=== PATIENT | female | born 1940 | race Caucasian/White ===

== ENCOUNTER 2017-04-23 14:04 | Emergency (ER) | payer MEDICARE, OTHER ==
[~2017-04-23] VITALS: Ht 162.6 cm; Wt 74.8 kg
[2017-04-23 14:34] LABS: Basophils # (auto) 0 uL; Basophils % (auto) 0.4 % (0.0-2.0); Eosinophils # (auto) 0.2 uL; Hematocrit 46.1 % (36.0-46.0); Hemoglobin 15.1 g/dL (12.2-16.2); Lymphocytes # (auto) 3.2 uL; Mean Corpuscular Hemoglobin 29.8 pg (28.0-32.0); Mean Corpuscular Hgb Conc. 32.7 g/dL (32.0-36.0); Mean Platelet Volume 9.4 fL (6.9-10.8); Monocytes # (auto) 0.7 uL; Monocytes % (auto) 6.5 % (0.0-12.0); Neutrophils # (auto) 6.9 uL; Neutrophils % (auto) 62.1 % (37.0-80.0); Nucleated Red Blood Cells % 0.1 %; Platelet Count (auto) 274 10^3/uL (140-450); Red Cell Distribution Width 13.6 % (11.8-14.3); White Blood Cell 11.2 10^3/uL (4.4-10.8)
[2017-04-23 14:57] LABS: Albumin 4.2 g/dL (3.4-5.0); Alkaline Phosphatase 76 U/L (45-117); Anion Gap 10 (5-15); Aspartate Aminotransferase 15 U/L (15-37); BUN/Creatinine Ratio 12.1; Bilirubin, Total 0.5 mg/dL (0.2-1.0); Blood Urea Nitrogen 13 mg/dL (7-18); Calcium 9.2 mg/dL (8.5-10.1); Carbon Dioxide 28 mmol/L (21-32); Chloride 101 mmol/L (98-107); GFR African American 64 mL/min; GFR Non-African American 53 mL/min; Glucose 96 mg/dL (74-106); Potassium 3.7 mmol/L (3.5-5.1); Sodium 139 mmol/L (136-145)
[2017-04-23 15:14] VITALS: BP 109/81
[2017-04-23 15:49] LABS: Urine Bilirubin Negative (Negative); Urine Blood Negative /uL (Negative); Urine Color Yellow (Yellow); Urine Glucose Normal (Normal); Urine Hyaline Cast FEW /lpf (0 - 2); Urine Ketone Negative (Negative); Urine Mucus FEW (None Seen); Urine Nitrite Negative (Negative); Urine RBC 1 /hpf (0 - 4); Urine Squamous Epithelial Cell FEW /hpf (<5)
== END 2017-04-23 16:04 | disposition home or self-care (01) ==
LOC: ER 14:04
DX: S09.90XA Unspecified injury of head, initial encounter (principal); N39.0 Urinary tract infection, site not specified; E11.9 Type 2 diabetes mellitus without complications; I10 Essential (primary) hypertension; Z90.49 Acquired absence of other specified parts of digestive tract; W20.8XXA Other cause of strike by thrown, projected or falling object, initial encounter; Y93.89 Activity, other specified; Y99.8 Other external cause status; Y92.89 Other specified places as the place of occurrence of the external cause
CPT/HCPCS: 36415; 70450; 80053; 81001; 84484; 85025; 93005

== ENCOUNTER 2019-05-27 21:51 | Inpatient (IN) | payer MEDICARE, BC ==
[~2019-05-27] VITALS: Ht 162.6 cm; Wt 75.3 kg
[~2019-05-27 21:51] MED LIST: ATEN50TA PO; INSU1.2I SC; METF-370 PO; PANT1INJ3 IV; SERT50TA PO; ZOLP10TA PO
[2019-05-27 23:39] LABS: Basophils # (auto) 0.1 uL; Basophils % (auto) 0.4 % (0.0-2.0); Eosinophils # (auto) 0 uL; Eosinophils % (auto) 0.1 % (0.0-7.0); Hematocrit 47.7 % (36.0-46.0); Hemoglobin 15.6 g/dL (12.2-16.2); Lymphocytes # (auto) 3.2 uL; Lymphocytes % (auto) 15.4 % (10.0-50.0); Mean Corpuscular Hemoglobin 29.8 pg (28.0-32.0); Mean Corpuscular Hgb Conc. 32.7 g/dL (32.0-36.0); Mean Corpuscular Volume 91.1 fL (80.0-100.0); Monocytes # (auto) 1.3 uL; Monocytes % (auto) 6.4 % (0.0-12.0); Neutrophils # (auto) 16.2 uL; Neutrophils % (auto) 77.7 % (37.0-80.0); Platelet Count (auto) 333 10^3/uL (140-450); Red Blood Cells 5.24 10^6/uL (4.0-5.20); White Blood Cell 20.9 10^3/uL (4.4-10.8)
[2019-05-27 23:48] LABS: Albumin 3.5 g/dL (3.4-5.0); Amylase 104 U/L (25-115); Anion Gap 14 (5-15); Blood Urea Nitrogen 36 mg/dL (7-18); Calcium 8.8 mg/dL (8.5-10.1); Carbon Dioxide 20 mmol/L (21-32); Chloride 100 mmol/L (98-107); Glucose 194 mg/dL (74-106); Lipase 154 U/L (73-393); Magnesium 1.7 mg/dL (1.6-2.6); Potassium 3.9 mmol/L (3.5-5.1); Sodium 134 mmol/L (136-145)
[2019-05-27 23:50] LABS: Alanine Aminotransferase 18 U/L (13-56); Aspartate Aminotransferase 13 U/L (15-37); BUN/Creatinine Ratio 23.1; GFR African American 41 mL/min; GFR Non-African American 34 mL/min
[2019-05-27 23:55] LABS: Alkaline Phosphatase 59 U/L (45-117); Bilirubin, Total 0.8 mg/dL (0.2-1.0); Total Protein 7.3 g/dL (6.4-8.2)
[2019-05-28] MEDS ORDERED: VANCOMYCIN PER PHARMACY 1,000 MG IV SCH (01:15)
[2019-05-28] MEDS ORDERED: ACETAMINOPHEN 325 MG TAB PO PRN (01:15)
[2019-05-28] MEDS ORDERED: SODIUM CHLORIDE 0.9% 1,000 ML IV ONE (02:00)
[2019-05-28 02:09] LABS: INR 1.05 (0.9-1.15); Partial Thromboplastin Time 24.7 sec (23.64-32.05)
[2019-05-28] MEDS: PIPERACILLIN-TAZOB 2.25GM 50 ML IV SCH ×5 (02:46→23:35)
[2019-05-28] MEDS ORDERED: ONDANSETRON HCL 4 MG/2 ML VIAL IV ONE ×2 (03:00→09:45)
[2019-05-28] MEDS ORDERED: MORPHINE SULFATE 4 MG/ML SYR/VIAL IV ONE (03:00)
[2019-05-28] MEDS ORDERED: VANCOMYCIN 1GM/250ML 250 ML IV ONE (03:00)
[2019-05-28 03:11] LABS: Urine Bacteria FEW /hpf (None Seen); Urine Blood Negative /uL (Negative); Urine Hyaline Cast MOD /lpf (0 - 2); Urine Mucus FEW (None Seen); Urine Specific Gravity 1.028 (1.001-1.035); Urine WBC 14 /hpf (0 - 5)
[2019-05-28 09:51] LABS: Potassium 3.8 mmol/L (3.5-5.1)
[2019-05-28] MEDS ORDERED: DEXTROSE (50%) 50ML SYRG IV PRN (15:15)
[2019-05-28] MEDS ORDERED: NITROGLYCERIN 0.4 MG SL TAB SL PRN (15:15)
[2019-05-28] MEDS ORDERED: MORPHINE SULFATE 4 MG/ML SYR/VIAL IV PRN ×2 (15:15)
[2019-05-28] MEDS ORDERED: MORPHINE SULF INJ 2 MG/ML SYRINGE 1ML IV PRN (15:15)
[2019-05-28] MEDS ORDERED: LORazepam 2MG/ML-1ML VIAL IV PRN (15:15)
[2019-05-28] MEDS: SODIUM CHLORIDE 0.9% 1,000 ML IV SCH ×2 (15:40→18:38)
[2019-05-28] MEDS: CLINDAMYCIN 600MG IV 50 ML IV SCH ×2 (16:06→21:32)
[2019-05-28 16:36] VITALS: BP 141/73
--- NOTE | 2019-05-28 17:36 | NUR ---
Telemetry admit from ER ZEBJADE admitted to Telemetry unit after SBAR received. Patient oriented to SHAKIRA CISNEROS RN primary RN, unit, room, bed, and unit policies regarding patient care and visiting hours. Patient now on continuous telemetry monitoring, tele box # 51 and telemetry reading on arrival to unit is sinus rhythm 91. Patient has NG Tube to left nares, set to low intermittent suction. Patient has 20g IV to right AC. Patient denies pain at this time. Patient is on room air, oxygen saturation 95%. Patient denies shortness of breath at this time. Reviewed plan of care with patient, patient verbalized understanding. Bed in low and locked position, call light within reach.. Will continue to monitor Q1 hour and PRN. Family at bedside.
[2019-05-28] MEDS: InsuLIN REG 1unit/0.01ml Soln (100units/ml) SC SCH ×2 (18:00→23:57)
[2019-05-28] MEDS ORDERED: ENOXAPARIN SOD 80 MG/0.8ML SYRINGE SC ONE (18:15)
[2019-05-28] MEDS: ENOXAPARIN SOD 80 MG/0.8ML SYRINGE SC SCH (18:30)
[2019-05-28] MEDS: ACCU-CHEK COMFORT CURVE STRIP VI SCH ×2 (18:37→23:58)
--- NOTE | 2019-05-28 18:40 | NUR ---
Additional family contact information Alejandro daughter
--- NOTE | 2019-05-28 19:32 | NUR ---
Closing Note Report given to overnight cashier RN. No signs or symptoms of distress noted at this time. Family at bedside.
--- NOTE | 2019-05-28 19:40 | NUR ---
assumed care, pt. awake, ngt to lis in place, relative at bedside, no c/o pain, no sob.
[2019-05-28 22:00] VITALS: BP 126/73
[2019-05-29] MEDS ORDERED: VANCOMYCIN 750mg/250ml 250 ML IV SCH (04:00)
[2019-05-29] MEDS: ACCU-CHEK COMFORT CURVE STRIP VI SCH ×4 (04:41→18:14)
[2019-05-29] MEDS: CLINDAMYCIN 600MG IV 50 ML IV SCH ×2 (05:00→14:47)
[2019-05-29] MEDS: InsuLIN REG 1unit/0.01ml Soln (100units/ml) SC SCH ×3 (05:29→18:00)
[2019-05-29] MEDS: ENOXAPARIN SOD 80 MG/0.8ML SYRINGE SC SCH ×2 (05:38→18:24)
[2019-05-29] MEDS: SODIUM CHLORIDE 0.9% 1,000 ML IV SCH (05:39)
[2019-05-29 05:48] VITALS: BP 111/69
[2019-05-29] MEDS: PIPERACILLIN-TAZOB 2.25GM 50 ML IV SCH ×3 (06:00→18:24)
[2019-05-29 07:14] LABS: Basophils # (auto) 0 uL; Basophils % (auto) 0.3 % (0.0-2.0); Eosinophils # (auto) 0.1 uL; Eosinophils % (auto) 0.6 % (0.0-7.0); Hematocrit 39.6 % (36.0-46.0); Hemoglobin 13.3 g/dL (12.2-16.2); Lymphocytes # (auto) 2.3 uL; Lymphocytes % (auto) 21.3 % (10.0-50.0); Mean Corpuscular Hemoglobin 30.2 pg (28.0-32.0); Mean Corpuscular Hgb Conc. 33.6 g/dL (32.0-36.0); Monocytes # (auto) 1.1 uL; Monocytes % (auto) 10.5 % (0.0-12.0); Neutrophils # (auto) 7.2 uL; Neutrophils % (auto) 67.3 % (37.0-80.0); Platelet Count (auto) 191 10^3/uL (140-450); Red Cell Distribution Width 14.1 % (11.8-14.3); White Blood Cell 10.8 10^3/uL (4.4-10.8)
--- NOTE | 2019-05-29 07:30 | NUR ---
Opening Note Received report from shift commander RN. Patient is awake, alert and oriented x4. No signs or symptoms of distress noted at this time. Patient has NG Tube to left nares, on low intermittent suctions. Patient is on room air, respirations even and unlabored. Patient denies pain at this time. Reviewed plan of care with patient, patient verbalized understanding. Patient is NPO. Bed in low and locked position, call light within reach. Will continue to monitor Q1 hour and PRN.
[2019-05-29 07:41] LABS: Albumin 2.6 g/dL (3.4-5.0); BUN/Creatinine Ratio 27.1; Calcium 8.2 mg/dL (8.5-10.1)
[2019-05-29 07:44] LABS: Bilirubin, Total 0.6 mg/dL (0.2-1.0); Total Protein 5.9 g/dL (6.4-8.2)
[2019-05-29 07:55] LABS: Potassium 2.5 mmol/L (3.5-5.1)
[2019-05-29] MEDS ORDERED: GASTROGRAFIN 120 ML SOL ONE (07:58)
--- NOTE | 2019-05-29 08:10 | NUR ---
Patient taken down for small bowel series.
--- NOTE | 2019-05-29 08:25 | NUR ---
Critical potassium Paged Hospitalist regarding patients critical potassium of 2.5. New orders received for Potassium IV 40meq with lidocaine. Will implement new orders. Will continue to monitor Q1 hour and PRN.
[2019-05-29] MEDS ORDERED: POTASSIUM CHLORIDE 40 MEQ, LIDOCAINE 1% (LOCAL ANESTH.) 4 ML in SODIUM CHL 0.9% 100 ML IV ONE ×2 (08:45→15:15)
[2019-05-29 09:00] VITALS: BP 119/64
--- NOTE | 2019-05-29 09:28 | NUR ---
Patient back to room Patient back from small bowel series. Instructed by automation engineering technician not to place NG Tube on suction until xray are completed. Bed in low and locked position, call light within reach. Will continue to monitor Q1 hour and PRN.
--- NOTE | 2019-05-29 09:50 | NUR ---
Nausea Patient complains of nausea, requesting medications. Will administer medications per MD orders. Will continue to monitor Q1 hour and PRN.
[2019-05-29] MEDS: PROMETHAZINE HCL 25 MG/ML 1ML IV PRN (09:54)
[2019-05-29] MEDS ORDERED: ENOXAPARIN SOD 40 MG/0.4 ML SYRINGE SC SCH (10:00)
--- NOTE | 2019-05-29 10:30 | NUR ---
surface mount technology operator at bedside. Instructed to place patient back to low intermittent suction. Bed in low and locked position, call light within reach. Will continue to monitor Q1 hour and PRN.
[2019-05-29] MEDS: PANTOPRAZOLE 40 MG/10 ML VIAL INJ IV SCH (11:20)
[2019-05-29 13:00] VITALS: BP 175/44
--- NOTE | 2019-05-29 14:59 | NUR ---
Dr. Yu at bedside Updating patient and family on plan of care. Will continue to monitor Q1 hour and PRN.
[2019-05-29] MEDS ORDERED: D5W/ SOD CHL 0.9%/KCL 20MEQ 1,000 ML IV ONE (15:15)
[2019-05-29] MEDS ORDERED: metroNIDAZOLE 500MG/100ML 100 ML IV ONE (15:30)
[2019-05-29 17:00] VITALS: BP 135/71
--- NOTE | 2019-05-29 18:31 | NUR ---
NG Tube Output 600MLS Light brown fluid emptied from collection chamber. Patient NG Tube on low intermittent suction.
--- NOTE | 2019-05-29 19:26 | NUR ---
Closing Note Report given to power and recovery shift engineer RN. NG Tube to left nares, on low intermittent suction. No signs or symptoms of distress noted at this time.
--- NOTE | 2019-05-29 19:30 | NUR ---
Opening Shift Note Assumed care of patient. Patient is awake and alert. No S/S of distress/SOB or pain. Bedside commode in close proximity to bed. NG tube to the left nare intact, patent with no s/s of pain. Instructed on POC and to call for assist PRN, will continue to monitor for changes. Bed locked in lowest position and bed rails up x2. Call light within reach.
[2019-05-29 20:36] LABS: Calcium 8.2 mg/dL (8.5-10.1); Potassium 3.1 mmol/L (3.5-5.1)
[2019-05-29 22:00] VITALS: BP 129/69
[2019-05-29] MEDS ORDERED: metroNIDAZOLE 500MG/100ML 100 ML IV SCH (22:00)
--- NOTE | 2019-05-30 | NUR ---
[facility] Hospitalist about run of V-tach Addendum: 05/30/19 at 0540 by SOREN SHANNON RN RN Patient resting comfortably with stable vital signs, denies chest pain and no s/s of pain or distress.
--- NOTE | 2019-05-30 00:30 | NUR ---
Hospitalist called back and made aware of the run of V-tach. No new orders given. Will continue to monitor for changes Q1 hour and as needed.
[2019-05-30] MEDS: ACCU-CHEK COMFORT CURVE STRIP VI SCH ×4 (00:43→17:56)
[2019-05-30] MEDS: ZOLPIDEM TARTRATE 5 MG TAB PO PRN (00:43)
[2019-05-30] MEDS: PIPERACILLIN-TAZOB 2.25GM 50 ML IV SCH ×4 (00:43→18:02)
--- NOTE | 2019-05-30 05:23 | NUR ---
site monitor tech made me aware of another run of V-tach at this time. Patient resting comfortably with stable vital signs, denies chest pain and no s/s of pain or distress.
[2019-05-30 05:41] LABS: Basophils # (auto) 0 uL; Basophils % (auto) 0.4 % (0.0-2.0); Eosinophils # (auto) 0.1 uL; Eosinophils % (auto) 1.4 % (0.0-7.0); Lymphocytes # (auto) 2.7 uL; Lymphocytes % (auto) 26.5 % (10.0-50.0); Mean Corpuscular Hemoglobin 30.4 pg (28.0-32.0); Mean Corpuscular Hgb Conc. 33.4 g/dL (32.0-36.0); Mean Corpuscular Volume 90.9 fL (80.0-100.0); Monocytes # (auto) 0.8 uL; Monocytes % (auto) 7.6 % (0.0-12.0); Neutrophils # (auto) 6.4 uL; Neutrophils % (auto) 64.1 % (37.0-80.0); Nucleated Red Blood Cells % 0.1 %; Platelet Count (auto) 166 10^3/uL (140-450); Red Blood Cells 3.96 10^6/uL (4.0-5.20); Red Cell Distribution Width 13.9 % (11.8-14.3)
[2019-05-30 05:54] VITALS: BP 135/69
[2019-05-30] MEDS: InsuLIN REG 1unit/0.01ml Soln (100units/ml) SC SCH ×4 (06:00→17:57)
[2019-05-30 06:01] LABS: Calcium 8.2 mg/dL (8.5-10.1)
[2019-05-30 06:03] LABS: BUN/Creatinine Ratio 22.1
[2019-05-30 06:09] LABS: Potassium 2.5 mmol/L (3.5-5.1)
--- NOTE | 2019-05-30 06:10 | NUR ---
Critical Lab Value Critical lab value reported at 2.5, hospitalist paged. Awaiting call back
[2019-05-30] MEDS: ENOXAPARIN SOD 80 MG/0.8ML SYRINGE SC SCH (06:45)
--- NOTE | 2019-05-30 06:55 | NUR ---
Paged hospitalist again for critical lab value
--- NOTE | 2019-05-30 07:40 | NUR ---
Opening Shift Note Assumed care of patient, sleeping in bed. No S/S of distress/SOB or pain. Instructed on POC and to call for assist PRN, bed in locked and lowest position and call light within reach. Will continue to monitor for changes Q1hr and PRN.
--- NOTE | 2019-05-30 08:17 | NUR ---
Spoke with Hospitalist Zamzam Singleton regarding patients potassium of 2.5. Orders given.
[2019-05-30] MEDS ORDERED: POTASSIUM CHLORIDE 60 MEQ, LIDOCAINE 1% (LOCAL ANESTH.) 6 ML in SODIUM CHL 0.9% 500 ML IV ONE (08:30)
[2019-05-30 09:00] VITALS: BP 126/68
[2019-05-30] MEDS: PANTOPRAZOLE 40 MG/10 ML VIAL INJ IV SCH (09:46)
[2019-05-30 13:00] VITALS: BP 142/74
[2019-05-30] MEDS ORDERED: ONDANSETRON ODT 4 MG TAB PO PRN (14:30)
--- NOTE | 2019-05-30 15:12 | NUR ---
Dr. Ramon on unit. He does not want NG tube D/C, instead clamp, and patient to have water and ice chips only. If nausea returns, senior technical support analyst to suction again.
[2019-05-30] MEDS: D5W/SOD CHL 0.9%/KCL 40MEQ 1,000 ML IV SCH (16:12)
[2019-05-30 17:00] VITALS: BP 156/81
[2019-05-30] MEDS: metFORMIN HYDROCHLORIDE 500 MG TAB PO SCH (17:58)
--- NOTE | 2019-05-30 17:58 | NUR ---
Lovenox was D/C by pharmacy. [facility] pharmacy, informed them Dr. Yu wants the patient to have the Lovenox tonight, and then D/C for the eliquis to start. Pharmacy will place new order.
[2019-05-30] MEDS: PANCREATIC ENZYMES 4200 UNIT CAP PO SCH (17:59)
[2019-05-30 18:16] LABS: BUN/Creatinine Ratio 17.9; Calcium 8.4 mg/dL (8.5-10.1); Potassium 3.3 mmol/L (3.5-5.1)
[2019-05-30] MEDS ORDERED: ENOXAPARIN SOD 80 MG/0.8ML SYRINGE SC ONE ×2 (18:45→19:45)
--- NOTE | 2019-05-30 19:15 | NUR ---
Still unable to pull Lovenox. Per Pharmacy they will bullet over so I can administer.
[2019-05-30 22:00] VITALS: BP 151/75
[2019-05-30] MEDS: busPIRone HCL 10 MG TAB PO SCH (22:38)
[2019-05-30] MEDS: ATORVASTATIN 20 MG TAB PO SCH (22:38)
[2019-05-30] MEDS: PROMETHAZINE HCL 25 MG/ML 1ML IV PRN (22:48)
[2019-05-31] MEDS: ACCU-CHEK COMFORT CURVE STRIP VI SCH ×5 (00:26→23:41)
[2019-05-31] MEDS: PIPERACILLIN-TAZOB 2.25GM 50 ML IV SCH ×5 (02:17→23:32)
[2019-05-31 05:22] LABS: Basophils # (auto) 0 uL; Basophils % (auto) 0.6 % (0.0-2.0); Eosinophils # (auto) 0.2 uL; Eosinophils % (auto) 3.2 % (0.0-7.0); Hematocrit 36.3 % (36.0-46.0); Lymphocytes # (auto) 1.9 uL; Mean Corpuscular Hemoglobin 30.1 pg (28.0-32.0); Mean Corpuscular Volume 91.4 fL (80.0-100.0); Monocytes # (auto) 0.7 uL; Monocytes % (auto) 8.6 % (0.0-12.0); Neutrophils # (auto) 4.8 uL; Neutrophils % (auto) 62.6 % (37.0-80.0); Platelet Count (auto) 161 10^3/uL (140-450); Red Blood Cells 3.97 10^6/uL (4.0-5.20); Red Cell Distribution Width 14.1 % (11.8-14.3); White Blood Cell 7.7 10^3/uL (4.4-10.8)
[2019-05-31 05:26] VITALS: BP 141/67
[2019-05-31 05:39] LABS: BUN/Creatinine Ratio 13.1; Calcium 8.2 mg/dL (8.5-10.1)
[2019-05-31] MEDS: InsuLIN REG 1unit/0.01ml Soln (100units/ml) SC SCH ×5 (06:00→23:41)
--- NOTE | 2019-05-31 07:35 | NUR ---
Opening Shift Note Assumed care of patient, awake and alert laying in bed. No S/S of distress/SOB or pain. Instructed on POC and to call for assist PRN, call light within reach and bed in locked and lowest position. Will continue to monitor for changes Q1hr and PRN.
[2019-05-31] MEDS: PANCREATIC ENZYMES 4200 UNIT CAP PO SCH ×3 (08:00→18:20)
[2019-05-31] MEDS: metFORMIN HYDROCHLORIDE 500 MG TAB PO SCH ×2 (08:00→18:00)
[2019-05-31 08:46] VITALS: BP 132/72
[2019-05-31] MEDS: D5W/SOD CHL 0.9%/KCL 40MEQ 1,000 ML IV SCH ×3 (09:30→11:20)
[2019-05-31] MEDS: APIXABAN 5 MG TAB PO SCH ×2 (09:31→22:18)
[2019-05-31] MEDS: PANTOPRAZOLE 40 MG/10 ML VIAL INJ IV SCH (09:31)
[2019-05-31] MEDS: LISINOPRIL 5 MG TAB PO SCH (09:32)
--- NOTE | 2019-05-31 09:34 | NUR ---
Spoke with joan Fox for patient to advance to clear liquids
[2019-05-31] MEDS ORDERED: POTASSIUM CHLORIDE 20 MEQ, LIDOCAINE 1% (LOCAL ANESTH.) 2 ML in SODIUM CHL 0.9% 100 ML IV ONE (12:30)
--- NOTE | 2019-05-31 12:34 | NUR ---
Dr. Yu bedside with patient discussing plan of care.
[2019-05-31] MEDS ORDERED: MORPHINE SULF INJ 2 MG/ML SYRINGE 1ML IV PRN ×2 (12:45)
[2019-05-31 13:06] VITALS: BP 148/85
--- NOTE | 2019-05-31 14:34 | NUR ---
Nutrition Assessment Notes please see attached link for complete assessment Est. Needs BW 72 [id number] kcal (23-25 kcal/kgBW), 72-79 gms pro (1.0-1.1 gms/kgBW). Will continue to monitor pertinent labs and reassess nutrient need prn Addendum: 05/31/19 at [address] Amended: Links added.
[2019-05-31 17:03] VITALS: BP 136/79
--- NOTE | 2019-05-31 19:40 | NUR ---
Opening Shift Note Assumed care of patient, awake and alert. No S/S of distress. Instructed on POC and to call for assist PRN. Bed in lowest locked position, bed rails up x2, call light within reach, fall precautions in place. Will continue to monitor for changes Q1hr and PRN. Signed: 06/01/19 at 44 by YARELY BARKLEY SN <Co-Signature Required> Co-Signed: 06/01/19 at 44 by CYRUS FUENTES OCA, RN
[2019-05-31 21:47] VITALS: BP 134/87
[2019-05-31] MEDS: ATORVASTATIN 20 MG TAB PO SCH (22:17)
[2019-05-31] MEDS: busPIRone HCL 10 MG TAB PO SCH (22:19)
[2019-05-31] MEDS: ZOLPIDEM TARTRATE 5 MG TAB PO PRN (23:31)
[2019-06-01 04:50] VITALS: BP 136/72
[2019-06-01 06:00] LABS: Basophils # (auto) 0 uL; Basophils % (auto) 0.5 % (0.0-2.0); Eosinophils # (auto) 0.3 uL; Eosinophils % (auto) 4.3 % (0.0-7.0); Hematocrit 37.2 % (36.0-46.0); Hemoglobin 12.4 g/dL (12.2-16.2); Lymphocytes # (auto) 1.9 uL; Lymphocytes % (auto) 30.2 % (10.0-50.0); Mean Corpuscular Hemoglobin 30.2 pg (28.0-32.0); Mean Corpuscular Hgb Conc. 33.3 g/dL (32.0-36.0); Mean Corpuscular Volume 90.8 fL (80.0-100.0); Monocytes # (auto) 0.6 uL; Monocytes % (auto) 9.2 % (0.0-12.0); Neutrophils # (auto) 3.4 uL; Neutrophils % (auto) 55.8 % (37.0-80.0); Nucleated Red Blood Cells % 0.1 %; Platelet Count (auto) 168 10^3/uL (140-450); Red Cell Distribution Width 13.6 % (11.8-14.3); White Blood Cell 6.2 10^3/uL (4.4-10.8)
[2019-06-01] MEDS: D5W/SOD CHL 0.9%/KCL 40MEQ 1,000 ML IV SCH ×2 (06:00→18:05)
[2019-06-01] MEDS: InsuLIN REG 1unit/0.01ml Soln (100units/ml) SC SCH ×4 (06:00→23:41)
[2019-06-01] MEDS: PIPERACILLIN-TAZOB 2.25GM 50 ML IV SCH ×4 (06:19→23:40)
[2019-06-01 06:22] LABS: Calcium 8.3 mg/dL (8.5-10.1); Potassium 3.3 mmol/L (3.5-5.1)
[2019-06-01] MEDS: ACCU-CHEK COMFORT CURVE STRIP VI SCH ×4 (06:23→23:41)
--- NOTE | 2019-06-01 07:40 | NUR ---
Opening Shift Note Assumed care of patient, pt awake and alert laying down in bed. Pt is on room air with even and unlabored respirations. No S/S of distress/SOB or pain. Bed is in lowest position, wheels are locked, side rails up x2, and call light is within reach. Instructed on POC and to call for assist PRN, will continue to monitor for changes Q1hr and PRN.
[2019-06-01] MEDS: PANCREATIC ENZYMES 4200 UNIT CAP PO SCH ×3 (08:16→18:08)
[2019-06-01] MEDS: metFORMIN HYDROCHLORIDE 500 MG TAB PO SCH ×2 (08:16→18:07)
[2019-06-01 09:00] VITALS: BP 147/80
[2019-06-01] MEDS: APIXABAN 5 MG TAB PO SCH ×2 (09:32→21:57)
[2019-06-01] MEDS: LISINOPRIL 5 MG TAB PO SCH (09:32)
[2019-06-01] MEDS: PANTOPRAZOLE 40 MG/10 ML VIAL INJ IV SCH (09:32)
[2019-06-01] MEDS ORDERED: POTASSIUM EFFERVESENT TAB 25 MEQ PO ONE (11:45)
--- NOTE | 2019-06-01 11:49 | NUR ---
md stubbs rounded on patient made aware of peripheral iv infiltration and pt not wanting to be poked again due to bad veins, md ordered po potassium rather than iv fluids, will attempt new iv insertion later in the day, md also advanced diet to puree diet new orders noted and carried out
--- NOTE | 2019-06-01 12:25 | NUR ---
left arm 22g inserted pt tolerated well, left arm previous peripheral iv removed dressing applied
[2019-06-01 13:00] VITALS: BP 158/87
--- NOTE | 2019-06-01 16:59 | NUR ---
assessment Patient is a 79 year old female who is alert and oriented. Patients cognitive abilities are intact. Prior to admission patient lived home with her Sanjay and functioned independently. Patient informed me she is able to care for her own ADLs. Per patient she will return home to her prior living arrangements post discharge and Sanjay will transport her home. Patients PCP is Dr Kaur. Patient feels safe returning home post discharge. Patient was on service with [facility] last year. Patient may benefit from home health post discharge. I informed patient she has a right to speak to a social work faculty member regarding all care. I informed patient she has a right to participate in any and all discharge planning. Patient is aware of visiting hours on the hospital floor. I informed patient she has a right to privacy. Patient has a POA and advanced directive. Patient verbalized understanding and agreed to discharge plan. Addendum: 06/01/19 at 1701 by Natalia ALICEA Amended: Links added.
--- NOTE | 2019-06-01 19:50 | NUR ---
Opening Shift Note Assumed care of patient, awake and alert. No S/S of distress/SOB. Instructed on POC and to call for assist PRN. Bed in lowest locked position, bed rails up X2, call light within reach, fall precautions in place. Will continue to monitor for changes Q1hr and PRN. Signed: 06/01/19 at 2132 by YARELY BARKLEY SN <Co-Signature Required> Co-Signed: 06/01/19 at 2132 by CYRUS FUENTES OCA, RN
[2019-06-01] MEDS: busPIRone HCL 10 MG TAB PO SCH (21:56)
[2019-06-01] MEDS: ATORVASTATIN 20 MG TAB PO SCH (21:57)
[2019-06-01 22:00] VITALS: BP 156/86
[2019-06-01] MEDS: ZOLPIDEM TARTRATE 5 MG TAB PO PRN (23:40)
[2019-06-02] MEDS: D5W/SOD CHL 0.9%/KCL 40MEQ 1,000 ML IV SCH ×2 (02:00→10:06)
[2019-06-02 05:00] VITALS: BP 132/81
[2019-06-02] MEDS: PIPERACILLIN-TAZOB 2.25GM 50 ML IV SCH ×2 (05:39→11:35)
[2019-06-02] MEDS: InsuLIN REG 1unit/0.01ml Soln (100units/ml) SC SCH ×2 (05:42→11:38)
[2019-06-02] MEDS: ACCU-CHEK COMFORT CURVE STRIP VI SCH ×2 (05:42→11:38)
[2019-06-02 05:53] LABS: Basophils # (auto) 0 uL; Basophils % (auto) 0.5 % (0.0-2.0); Eosinophils # (auto) 0.4 uL; Eosinophils % (auto) 4.1 % (0.0-7.0); Hematocrit 38.2 % (36.0-46.0); Hemoglobin 12.5 g/dL (12.2-16.2); Lymphocytes # (auto) 3.2 uL; Lymphocytes % (auto) 34.4 % (10.0-50.0); Mean Corpuscular Hemoglobin 29.5 pg (28.0-32.0); Mean Corpuscular Hgb Conc. 32.8 g/dL (32.0-36.0); Mean Corpuscular Volume 90.2 fL (80.0-100.0); Monocytes # (auto) 0.6 uL; Monocytes % (auto) 6.6 % (0.0-12.0); Neutrophils # (auto) 5.1 uL; Neutrophils % (auto) 54.4 % (37.0-80.0); Platelet Count (auto) 196 10^3/uL (140-450); Red Blood Cells 4.24 10^6/uL (4.0-5.20); Red Cell Distribution Width 13.6 % (11.8-14.3); White Blood Cell 9.4 10^3/uL (4.4-10.8)
[2019-06-02 06:09] LABS: BUN/Creatinine Ratio 5.8; Calcium 8.4 mg/dL (8.5-10.1); Potassium 3.9 mmol/L (3.5-5.1)
--- NOTE | 2019-06-02 07:40 | NUR ---
PT RESTING IN BED, NO DISTRESS NOTED. PT REPORTS NO PAIN AT THIS TIME. PT BS IS 163, WILL GIVE METFORMIN. PT NOTIFIED STOOL SAMPLE IS NEEDED. PT AWARE AND REPORTS SHE HAS NOT EATEN MUCH DUE TO PREVIOUSLY HAVING NG TUBE. PT REPORTS HER LBM WAS, "THURSDAY." PT REPORTS SHE WILL PRESS CALL LIGHT WHEN STOOL SAMPLE AVAILABLE, WILL CONTINUE TO MONITOR.
[2019-06-02] MEDS: metFORMIN HYDROCHLORIDE 500 MG TAB PO SCH (08:33)
[2019-06-02] MEDS: PANCREATIC ENZYMES 4200 UNIT CAP PO SCH ×2 (08:34→11:35)
[2019-06-02 09:00] VITALS: BP 149/86
[2019-06-02] MEDS: APIXABAN 5 MG TAB PO SCH (10:05)
[2019-06-02] MEDS: LISINOPRIL 5 MG TAB PO SCH (10:05)
[2019-06-02] MEDS: PANTOPRAZOLE 40 MG/10 ML VIAL INJ IV SCH (10:06)
--- NOTE | 2019-06-02 10:52 | NUR ---
DR DE LA TORRE SAW PATIENT. NOTIFIED MD PT HAS NOT HAD A BM AND STOOL SAMPLE NEEDED, BUT HAS BEEN ON LIQUID DIET. MD ASKED PT IF PT IS PASSING GAS. PT REPORTS YES. NO NEW ORDERS. MD REPORTS PT MAY POSSIBLY DC TODAY.
[2019-06-02] MEDS ORDERED: PANC3000 PO (13:05)
[2019-06-02] MEDS ORDERED: ATOR20TA50 PO (13:05)
[2019-06-02] MEDS ORDERED: BUSP10TA31 PO (13:05)
[2019-06-02] MEDS ORDERED: METF-370 PO (13:05)
[2019-06-02] MEDS ORDERED: LISI-275 PO (13:05)
[2019-06-02] MEDS ORDERED: PANT40TA2 PO (13:05)
[2019-06-02] MEDS ORDERED: INSU1.2I SC (13:05)
[2019-06-02] MEDS ORDERED: APIX5TAB PO (13:05)
[2019-06-02] MEDS ORDERED: LACT10SO70 PO (13:05)
[2019-06-02] MEDS ORDERED: DOCU-94 PO (13:05)
[2019-06-02] MEDS ORDERED: ATE50T PO (13:05)
[2019-06-02 14:57] VITALS: BP 133/87
--- NOTE | 2019-06-02 15:59 | NUR ---
Discharge instructions given as ordered. Encourage to follow up with PMD as instructed. All questions and concerns addressed. Patient verbalized understanding. Medication reconciliation form completed and copy given to patient. IV removed with catheter intact, pressure dressing applied. Telemetry unit returned to ICU. Patient taken to vehicle via wheelchair with all personal belongings, accompanied by staff and spouse. No distress noted at time of departure.
[2019-06-06] MEDS ORDERED: APIXABAN 5 MG TAB PO SCH (10:00)
== END 2019-06-02 15:55 | disposition home or self-care (01) | DRG 872 ==
LOC: ER 21:51 → TELE 21:52 → TELE-WESTW 05-28 17:30
PROVIDERS: ADMIT Internal Medicine; ATTEND Hospitalist
DX: A41.9 Sepsis, unspecified organism (principal); K56.609 Unspecified intestinal obstruction, unspecified as to partial versus complete obstruction; N39.0 Urinary tract infection, site not specified; I82.402 Acute embolism and thrombosis of unspecified deep veins of left lower extremity; K86.1 Other chronic pancreatitis; N18.9 Chronic kidney disease, unspecified; E11.22 Type 2 diabetes mellitus with diabetic chronic kidney disease; I12.9 Hypertensive chronic kidney disease with stage 1 through stage 4 chronic kidney disease, or unspecified chronic kidney disease; K21.9 Gastro-esophageal reflux disease without esophagitis; F32.9 Major depressive disorder, single episode, unspecified; E66.9 Obesity, unspecified; F41.9 Anxiety disorder, unspecified; E11.21 Type 2 diabetes mellitus with diabetic nephropathy; K57.90 Diverticulosis of intestine, part unspecified, without perforation or abscess without bleeding; E78.5 Hyperlipidemia, unspecified; E86.0 Dehydration; E87.6 Hypokalemia; Z88.1 Allergy status to other antibiotic agents; Z79.4 Long term (current) use of insulin; Z90.49 Acquired absence of other specified parts of digestive tract; Z90.89 Acquired absence of other organs; Z90.710 Acquired absence of both cervix and uterus; Z82.49 Family history of ischemic heart disease and other diseases of the circulatory system; Z82.5 Family history of asthma and other chronic lower respiratory diseases; Z80.0 Family history of malignant neoplasm of digestive organs; Z79.899 Other long term (current) drug therapy; Z68.28 Body mass index [BMI] 28.0-28.9, adult
CPT/HCPCS: 36415; 36600; 71045; 74176; 74250; 80048; 80053; 81001; 82150; 82553; 82805; 82962; 83036; 83605; 83690; 83735; 83880; 84443; 84484; 85025; 85379; 85384; 85610; 85652; 85730; 86141; 87040; 87086; 93005; 93970; 96365; 96368; 96375; C9113; G0378; J2001; J2405; J2543; J3490

== ENCOUNTER 2019-07-28 14:21 | Inpatient (IN) | payer MEDICARE, BC ==
[~2019-07-28] VITALS: Ht 170.2 cm; Wt 74.4 kg
[~2019-07-28 14:21] MED LIST changes: +APIX5TAB PO; +ATE50T PO; -ATEN50TA PO; +ATOR20TA50 PO; +BUSP10TA31 PO; +DOCU-94 PO; +LACT10SO70 PO; +LISI-275 PO; +PANC3000 PO; -PANT1INJ3 IV; +PANT40TA2 PO; -SERT50TA PO
[2019-07-28] MEDS ORDERED: SODIUM CHLORIDE 0.9% 250 ML IV ONE (14:58)
[2019-07-28] MEDS ORDERED: MORPHINE SULF INJ 2 MG/ML SYRINGE 1ML IV ONE (15:00)
[2019-07-28] MEDS ORDERED: ONDANSETRON HCL 4 MG/2 ML VIAL IV ONE (15:00)
[2019-07-28 16:47] LABS: Basophils # (auto) 0 uL; Basophils % (auto) 0.3 % (0.0-2.0); Eosinophils # (auto) 0 uL; Eosinophils % (auto) 0.4 % (0.0-7.0); Hematocrit 37.2 % (36.0-46.0); Hemoglobin 12.4 g/dL (12.2-16.2); Lymphocytes % (auto) 12.4 % (10.0-50.0); Mean Corpuscular Hemoglobin 29.9 pg (28.0-32.0); Mean Corpuscular Hgb Conc. 33.4 g/dL (32.0-36.0); Mean Corpuscular Volume 89.6 fL (80.0-100.0); Monocytes # (auto) 0.7 uL; Monocytes % (auto) 8.2 % (0.0-12.0); Neutrophils # (auto) 6.3 uL; Neutrophils % (auto) 78.7 % (37.0-80.0); Platelet Count (auto) 162 10^3/uL (140-450); Red Blood Cells 4.16 10^6/uL (4.0-5.20); Red Cell Distribution Width 15.1 % (11.8-14.3); White Blood Cell 8.1 10^3/uL (4.4-10.8)
[2019-07-28 16:48] LABS: Albumin 3.1 g/dL (3.4-5.0); BUN/Creatinine Ratio 8.7; Calcium 7.7 mg/dL (8.5-10.1); Potassium 3.3 mmol/L (3.5-5.1)
[2019-07-28 16:53] LABS: Bilirubin, Total 0.6 mg/dL (0.2-1.0); Total Protein 6.1 g/dL (6.4-8.2)
[2019-07-28 17:02] LABS: Magnesium 0.8 mg/dL (1.6-2.6)
[2019-07-28] MEDS ORDERED: DEXTROSE (50%) 50ML SYRG IV PRN (19:30)
[2019-07-28] MEDS ORDERED: MORPHINE SULF INJ 2 MG/ML SYRINGE 1ML IV PRN (19:30)
[2019-07-28] MEDS ORDERED: NITROGLYCERIN 0.4 MG SL TAB SL PRN (19:30)
[2019-07-28] MEDS ORDERED: LACTULOSE 20Gm/30ML SOLN PO PRN ×2 (19:30→20:00)
[2019-07-28] MEDS: HYDROcodone-ACET 5/325MG TAB PO PRN (21:34)
[2019-07-28] MEDS: InsuLIN REG 1unit/0.01ml Soln (100units/ml) SC SCH (22:00)
--- NOTE | 2019-07-28 23:00 | NUR ---
Telemetry admit from ER JADE CARRINGTON admitted to Telemetry unit. Patient oriented to Shruti Rubalcava, primary RN, unit, room, bed, and unit policies regarding patient care and visiting hours. Patient now on continuous telemetry monitoring, tele box #17. Patient weighed by bed scale and encouraged to call if they need something. All questions and concerns addressed, patient verbalized understanding.
[2019-07-28] MEDS: ACCU-CHEK COMFORT CURVE STRIP VI SCH (23:31)
[2019-07-28] MEDS: MAGNESIUM SULFATE 1GM/100ML 100 ML IV SCH (23:38)
[2019-07-28] MEDS: APIXABAN 5 MG TAB PO SCH (23:52)
[2019-07-28] MEDS: DOCUSATE SOD 100 MG CAP PO SCH (23:52)
[2019-07-28] MEDS: ATORVASTATIN 20 MG TAB PO SCH (23:53)
[2019-07-29] VITALS (7 sets, daily range): BP systolic 91–134; BP diastolic 51–66
[2019-07-29] MEDS: MAGNESIUM SULFATE 1GM/100ML 100 ML IV SCH ×4 (00:56→16:00)
--- NOTE | 2019-07-29 01:21 | NUR ---
MRSA SWAB SENT TO LAB PER ORDERS
[2019-07-29] MEDS: ZOLPIDEM TARTRATE 5 MG TAB PO PRN (01:36)
[2019-07-29] MEDS: SODIUM CHLORIDE 0.9% 1,000 ML IV SCH ×3 (02:52→20:06)
[2019-07-29] MEDS: ACCU-CHEK COMFORT CURVE STRIP VI SCH ×4 (06:47→22:30)
[2019-07-29] MEDS: InsuLIN REG 1unit/0.01ml Soln (100units/ml) SC SCH ×4 (06:47→22:00)
--- NOTE | 2019-07-29 07:15 | NUR ---
OPENING SHIFT NOTE ASSUMED CARE OF PATIENT FROM COAL SHOOTER RN MIGUEL. PATIENT IS AWAKE AND ALERT X4. PATIENT HAS NO S/S OF DISTRESS/SOB OR PAIN. INSTRUCTED PATIENT ON POC, PATIENT VERBALIZED UNDERSTANDING. BED IS IN LOWEST POSITION WITH SIDE RAILS RAISED X2, BED WHEELS LOCKED AND CALL LIGHT IS WITHIN REACH. WILL CONTINUE TO MONITOR.
[2019-07-29] MEDS: PANCREATIC ENZYMES PO SCH ×2 (08:00→17:27)
--- NOTE | 2019-07-29 08:00 | NUR ---
INFORMED PATIENT WE NEED PANCREATIC ENZYMES (POM) TO BE BROUGHT FROM HOME, PATIENT IS AWARE AND PER PATIENT SHE WILL HAVE BRING THEM IN.
[2019-07-29] MEDS: ASPirin 81 mg TAB PO SCH (09:08)
[2019-07-29] MEDS: APIXABAN 5 MG TAB PO SCH ×2 (09:09→22:36)
[2019-07-29] MEDS: DOCUSATE SOD 100 MG CAP PO SCH ×2 (09:09→22:36)
[2019-07-29] MEDS: PANTOPRAZOLE 40 MG TAB PO SCH (09:10)
[2019-07-29] MEDS: HYDROcodone-ACET 5/325MG TAB PO PRN (09:10)
[2019-07-29] MEDS: LISINOPRIL 5 MG TAB PO SCH (09:15)
[2019-07-29] MEDS: ATENOLOL 50 MG TAB PO SCH (09:16)
[2019-07-29] MEDS: busPIRone HCL 10 MG TAB PO SCH (09:20)
--- NOTE | 2019-07-29 09:50 | NUR ---
MD DE LA TORRE AT BEDSIDE. UPDATED MD ON PATIENT'S STATUS. MD IS AWARE MD ORDERED CARDIO CONSULT, ECHO, EKG, NEURO CONSULT AND GI CONSULT (MD CARLSON). INFORMED MD PATIENT IS NAUSEAS, MD ORDERED ZOFRAN TO BE GIVEN. WILL FOLLOW THROUGH WITH ORDERS.
[2019-07-29] MEDS ORDERED: ONDANSETRON HCL 4 MG/2 ML VIAL IV PRN (11:00)
--- NOTE | 2019-07-29 11:57 | NUR ---
ECHO BEING DONE AT BEDSIDE
--- NOTE | 2019-07-29 12:20 | NUR ---
MD EWING AT BEDSIDE UPDATED MD ON PATENTS STATUS, MD ORDERED MAGNESIUM AND POTASSIUM TO BE GIVEN AND TO ORDER CHEM PANEL ONCE THEY ARE FINISHED. MD ORDERED ORTHOSTATIC VITALS. WILL FOLLOW THROUGH WITH ORDERS.
[2019-07-29] MEDS ORDERED: POTASSIUM CHL 20 Meq TABLET PO ONE (13:00)
[2019-07-29] MEDS ORDERED: MAGNESIUM SULFATE 1GM/100ML 100 ML IV SCH ×2 (13:00→18:00)
[2019-07-29] MEDS ORDERED: CALCIUM GLUC 4.65meq/50ml D5AE 50 ML IV ONE (13:30)
[2019-07-29] MEDS ORDERED: POTASSIUM CHL 20MEQ/100ML 100 ML IV ONE (13:30)
[2019-07-29] MEDS ORDERED: LORazepam 2MG/ML-1ML VIAL IV PRN (16:00)
--- NOTE | 2019-07-29 19:15 | NUR ---
CLOSING SHIFT NOTE ENDORSED CARE TO WORKERS' COMPENSATION COMMISSIONER RN MIGUEL. INFORMED RN PATIENT IS RECEIVING MAGNESIUM AT THIS TIME AND CALCIUM IV STILL NEEDS TO BE ADMINISTERED, RN IS AWARE. ALSO INFORMED RN ONCE CALCIUM IS ADMINISTERED MD WANTS CHEM PANEL TO BE ORDERED.. PATIENT HAS NO S/S OF DISTRESS/SOB OR PAIN AT THIS TIME.
[2019-07-29] MEDS: ATORVASTATIN 20 MG TAB PO SCH (22:38)
[2019-07-30] VITALS (7 sets, daily range): BP systolic 110–144; BP diastolic 59–74
[2019-07-30] MEDS: ZOLPIDEM TARTRATE 5 MG TAB PO PRN (00:44)
[2019-07-30] MEDS: ACCU-CHEK COMFORT CURVE STRIP VI SCH ×4 (06:21→21:34)
[2019-07-30] MEDS: InsuLIN REG 1unit/0.01ml Soln (100units/ml) SC SCH ×4 (06:21→22:00)
[2019-07-30 07:46] LABS: Basophils # (auto) 0 uL; Basophils % (auto) 0.4 % (0.0-2.0); Eosinophils # (auto) 0.1 uL; Eosinophils % (auto) 2.8 % (0.0-7.0); Hematocrit 33.1 % (36.0-46.0); Hemoglobin 10.8 g/dL (12.2-16.2); Lymphocytes # (auto) 1.6 uL; Mean Corpuscular Hemoglobin 29.6 pg (28.0-32.0); Mean Corpuscular Hgb Conc. 32.6 g/dL (32.0-36.0); Mean Corpuscular Volume 90.8 fL (80.0-100.0); Monocytes # (auto) 0.5 uL; Monocytes % (auto) 10.7 % (0.0-12.0); Neutrophils # (auto) 2.4 uL; Neutrophils % (auto) 51.1 % (37.0-80.0); Nucleated Red Blood Cells % 0.1 %; Platelet Count (auto) 137 10^3/uL (140-450); Red Blood Cells 3.64 10^6/uL (4.0-5.20); White Blood Cell 4.7 10^3/uL (4.4-10.8)
[2019-07-30] MEDS: PANCREATIC ENZYMES PO SCH ×2 (08:00→18:00)
[2019-07-30 08:10] LABS: Magnesium 1.9 mg/dL (1.6-2.6); Potassium 3.4 mmol/L (3.5-5.1)
[2019-07-30 08:19] LABS: Albumin 2.7 g/dL (3.4-5.0); BUN/Creatinine Ratio 8.5; Bilirubin, Total 0.4 mg/dL (0.2-1.0); Calcium 8.1 mg/dL (8.5-10.1); Phosphorus 3.1 mg/dL (2.5-4.90); Total Protein 5.2 g/dL (6.4-8.2)
[2019-07-30] MEDS: busPIRone HCL 10 MG TAB PO SCH (09:26)
[2019-07-30] MEDS: PANTOPRAZOLE 40 MG TAB PO SCH (09:26)
[2019-07-30] MEDS: POTASSIUM EFFERVESENT TAB 25 MEQ PO SCH (09:26)
[2019-07-30] MEDS: ATENOLOL 50 MG TAB PO SCH (09:27)
[2019-07-30] MEDS: APIXABAN 5 MG TAB PO SCH ×2 (09:27→21:34)
[2019-07-30] MEDS: LISINOPRIL 5 MG TAB PO SCH (09:28)
[2019-07-30] MEDS: ASPirin 81 mg TAB PO SCH (09:28)
[2019-07-30] MEDS: CALCIUM W/VIT D (600MG/400IU) TAB PO SCH (09:29)
[2019-07-30] MEDS: DOCUSATE SOD 100 MG CAP PO SCH ×2 (09:29→21:33)
[2019-07-30] MEDS: SODIUM CHLORIDE 0.9% 1,000 ML IV SCH (09:32)
--- NOTE | 2019-07-30 09:50 | NUR ---
PATIENT TAKEN DOWN FOR MRI VIA WHEELCHAIR.
--- NOTE | 2019-07-30 10:40 | NUR ---
MD DE LA TORRE AT BEDSIDE UPDATED MD ON PATIENT'S STATUS INCLUDING LABS. NO NEW ORDERS GIVEN AT THIS TIME. PER MD, HE WILL MOST LIKELY DISCHARGE PATIENT TOMORROW
--- NOTE | 2019-07-30 11:45 | NUR ---
EEG BEING DONE AT THIS TIME.
--- NOTE | 2019-07-30 12:55 | NUR ---
EEG-Electroencephalogram completed on 07/30/2019
--- NOTE | 2019-07-30 16:38 | NUR ---
OPENING SHIFT NOTE ASSUMED CARE OF PATIENT FROM MARINE WELDER ALCIRA RIVERA. PATIENT IS AWAKE AND ALERT X4. PATIENT HAS NO S/S OF DISTRESS/SOB OR PAIN. INSTRUCTED PATIENT ON POC, PATIENT VERBALIZED UNDERSTANDING. BED IS IN LOWEST POSITION WITH SIDE RAILS RAISED X2, BED WHEELS LOCKED, BED SIDE COMMODE AND CALL LIGHT IS WITHIN REACH. WILL CONTINUE TO MONITOR. Addendum: 07/30/19 at 1639 by Lea Cottrell RN RN TIME 0720 NOT 1639
--- NOTE | 2019-07-30 19:19 | NUR ---
CLOSING SHIFT NOTE ENDORSED CARE TO HIGH SCHOOL ASSISTANT PRINCIPAL RN JOSEPH. PATIENT HAS NO S/S OF DISTRESS/SOB OR PAIN AT THIS TIME.
--- NOTE | 2019-07-30 19:39 | NUR ---
Opening Shift Note Received report from day shift nurseLea. Assumed care of patient. Patient is awake, alert, and orientated x 4. No S/S of distress/SOB or pain. Bed is in lowest position with side rails up x 2. Bed brakes are locked and call light is with in reach. HOB is 30 degrees. Instructed on POC and to call for assist PRN, will continue to monitor for changes Q1hr and PRN.
[2019-07-30] MEDS: ATORVASTATIN 20 MG TAB PO SCH (21:34)
[2019-07-31] MEDS: ZOLPIDEM TARTRATE 5 MG TAB PO PRN (02:06)
[2019-07-31 05:00] VITALS: BP 103/58
[2019-07-31 06:53] LABS: Basophils # (auto) 0 uL; Basophils % (auto) 0.3 % (0.0-2.0); Eosinophils # (auto) 0.2 uL; Eosinophils % (auto) 3.1 % (0.0-7.0); Hematocrit 31.6 % (36.0-46.0); Hemoglobin 10.6 g/dL (12.2-16.2); Lymphocytes # (auto) 2.1 uL; Lymphocytes % (auto) 36.1 % (10.0-50.0); Mean Corpuscular Hgb Conc. 33.5 g/dL (32.0-36.0); Mean Corpuscular Volume 89.8 fL (80.0-100.0); Monocytes # (auto) 0.6 uL; Monocytes % (auto) 9.4 % (0.0-12.0); Neutrophils % (auto) 51.1 % (37.0-80.0); Nucleated Red Blood Cells % 0.1 %; Platelet Count (auto) 142 10^3/uL (140-450); Red Blood Cells 3.52 10^6/uL (4.0-5.20); Red Cell Distribution Width 14.7 % (11.8-14.3); White Blood Cell 5.9 10^3/uL (4.4-10.8)
[2019-07-31 07:00] LABS: Albumin 2.5 g/dL (3.4-5.0); Calcium 8.3 mg/dL (8.5-10.1); Magnesium 1.3 mg/dL (1.6-2.6); Potassium 3.9 mmol/L (3.5-5.1)
[2019-07-31] MEDS: ACCU-CHEK COMFORT CURVE STRIP VI SCH ×3 (07:00→17:00)
[2019-07-31] MEDS: InsuLIN REG 1unit/0.01ml Soln (100units/ml) SC SCH ×3 (07:00→17:00)
[2019-07-31 07:04] LABS: BUN/Creatinine Ratio 12.6; Bilirubin, Total 0.3 mg/dL (0.2-1.0); Phosphorus 3.4 mg/dL (2.5-4.90); Total Protein 4.9 g/dL (6.4-8.2)
--- NOTE | 2019-07-31 07:14 | NUR ---
closing notes endorsed care to day shift nurserichelle.
--- NOTE | 2019-07-31 07:20 | NUR ---
OPENING SHIFT NOTE ASSUMED CARE OF PATIENT FROM DISTRIBUTION A CLASS LINEMAN RN JOSEPH. PATIENT IS AWAKE AND ALERT X4. PATIENT HAS NO S/S OF DISTRESS/SOB OR PAIN. INSTRUCTED PATIENT ON POC, PATIENT VERBALIZED UNDERSTANDING. BED IS IN LOWEST POSITION WITH SIDE RAILS RAISED X2, BED WHEELS LOCKED, BED SIDE COMMODE AND CALL LIGHT IS WITHIN REACH. WILL CONTINUE TO MONITOR.
[2019-07-31 07:52] VITALS: BP 158/84
[2019-07-31] MEDS: PANCREATIC ENZYMES PO SCH ×2 (08:00→18:00)
[2019-07-31 09:00] VITALS: BP 158/84
[2019-07-31] MEDS: POTASSIUM EFFERVESENT TAB 25 MEQ PO SCH (09:46)
[2019-07-31] MEDS: PANTOPRAZOLE 40 MG TAB PO SCH (09:46)
[2019-07-31] MEDS: APIXABAN 5 MG TAB PO SCH (09:46)
[2019-07-31] MEDS: ASPirin 81 mg TAB PO SCH (09:47)
[2019-07-31] MEDS: busPIRone HCL 10 MG TAB PO SCH (09:47)
[2019-07-31] MEDS: DOCUSATE SOD 100 MG CAP PO SCH (09:47)
[2019-07-31] MEDS: LISINOPRIL 5 MG TAB PO SCH (09:47)
[2019-07-31] MEDS: ATENOLOL 50 MG TAB PO SCH (09:47)
[2019-07-31] MEDS: CALCIUM W/VIT D (600MG/400IU) TAB PO SCH (09:47)
--- NOTE | 2019-07-31 10:30 | NUR ---
MD DE LA TORRE AT BEDSIDE. UPDATED MD ON PATIENT'S STATUS, INCLUDING MAGNESIUM LEVEL, MD IS AWARE AND WILL ORDER MAGNESIUM IV FOR PATIENT. AFTER MAGNESIUM HAS BEEN ADMINISTERED MD WANTS PATIENT TO BE DISCHARGED. WILL FOLLOW THROUGH WITH ORDERS.
[2019-07-31] MEDS: MAGNESIUM SULFATE 1GM/100ML 100 ML IV SCH ×4 (12:05→15:00)
[2019-07-31 13:00] VITALS: BP 128/63
[2019-07-31 16:40] VITALS: BP 117/64
[2019-07-31] MEDS ORDERED: PANT40TA2 PO (17:14)
[2019-07-31] MEDS ORDERED: INSU1.2I SC (17:14)
[2019-07-31] MEDS ORDERED: ATOR20TA50 PO (17:14)
[2019-07-31] MEDS ORDERED: ATE50T PO (17:14)
[2019-07-31] MEDS ORDERED: BUSP10TA31 PO (17:14)
[2019-07-31] MEDS ORDERED: MAGN400C2 PO (17:14)
[2019-07-31] MEDS ORDERED: DOCU-94 PO (17:14)
[2019-07-31] MEDS ORDERED: LACT10SO70 PO (17:14)
[2019-07-31] MEDS ORDERED: METF-370 PO (17:14)
[2019-07-31] MEDS ORDERED: LISI-275 PO (17:14)
[2019-07-31] MEDS ORDERED: CALC600T80 PO (17:14)
[2019-07-31] MEDS ORDERED: APIX5TAB PO (17:14)
[2019-07-31] MEDS ORDERED: PANC3000 PO (17:14)
[2019-07-31] MEDS ORDERED: POTA10TA51 PO (17:15)
[2019-08-01 09:11] LABS: Folate (Folic Acid) 6.08 ng/mL (5.38-24)
== END 2019-07-31 18:18 | disposition home or self-care (01) | DRG 312 ==
LOC: ER 14:21 → EDBD 14:21 → TELE 14:22 → TELE-EAST 22:30
PROVIDERS: ADMIT Internal Medicine; ATTEND Hospitalist
DX: R55 Syncope and collapse (principal); I50.21 Acute systolic (congestive) heart failure; I13.0 Hypertensive heart and chronic kidney disease with heart failure and stage 1 through stage 4 chronic kidney disease, or unspecified chronic kidney disease; S00.03XA Contusion of scalp, initial encounter; E83.42 Hypomagnesemia; E87.6 Hypokalemia; E11.22 Type 2 diabetes mellitus with diabetic chronic kidney disease; E66.9 Obesity, unspecified; E78.5 Hyperlipidemia, unspecified; E86.0 Dehydration; F32.9 Major depressive disorder, single episode, unspecified; K21.9 Gastro-esophageal reflux disease without esophagitis; M47.812 Spondylosis without myelopathy or radiculopathy, cervical region; N18.3 Chronic kidney disease, stage 3 (moderate); K57.30 Diverticulosis of large intestine without perforation or abscess without bleeding; M48.02 Spinal stenosis, cervical region; W01.0XXA Fall on same level from slipping, tripping and stumbling without subsequent striking against object, initial encounter; Z79.01 Long term (current) use of anticoagulants; Z80.0 Family history of malignant neoplasm of digestive organs; Z82.49 Family history of ischemic heart disease and other diseases of the circulatory system; Z85.038 Personal history of other malignant neoplasm of large intestine; Z86.718 Personal history of other venous thrombosis and embolism; Z87.19 Personal history of other diseases of the digestive system; Z90.49 Acquired absence of other specified parts of digestive tract; Z90.710 Acquired absence of both cervix and uterus; Y93.89 Activity, other specified; Y92.89 Other specified places as the place of occurrence of the external cause; Y99.8 Other external cause status; Z88.8 Allergy status to other drugs, medicaments and biological substances; Z79.82 Long term (current) use of aspirin; Z68.25 Body mass index [BMI] 25.0-25.9, adult
CPT/HCPCS: 36415; 70450; 70551; 72125; 80053; 80061; 82607; 82746; 82962; 83036; 83735; 84100; 84443; 84484; 85025; 85379; 87081; 93005; 93306; 93886; 95819; 96361; 96374; 96375; G0378; J0610; J2405

== ENCOUNTER 2019-09-21 14:57 | Inpatient (IN) | payer MEDICARE, BC ==
[~2019-09-21] VITALS: Ht 160 cm; Wt 68.0 kg
[~2019-09-21 14:57] MED LIST changes: +CALC600T80 PO; +MAGN400C2 PO; +POTA10TA51 PO; -ZOLP10TA PO
[2019-09-21 15:47] LABS: Basophils # (auto) 0.1 10 ^3/uL (0-0.2); Basophils % (auto) 0.7 % (0.0-2.0); Eosinophils # (auto) 0 10 ^3/uL (0-0.8); Eosinophils % (auto) 0.3 % (0.0-7.0); Hematocrit 44.4 % (36.0-46.0); Hemoglobin 14.5 g/dL (12.2-16.2); Lymphocytes % (auto) 17.6 % (10.0-50.0); Mean Corpuscular Hgb Conc. 32.6 g/dL (32.0-36.0); Mean Corpuscular Volume 91.8 fL (80.0-100.0); Monocytes # (auto) 1.1 10 ^3/uL (0-1.3); Monocytes % (auto) 6.3 % (0.0-12.0); Neutrophils # (auto) 12.9 10 ^3/uL (1.6-8.6); Neutrophils % (auto) 75.1 % (37.0-80.0); Platelet Count (auto) 290 10^3/uL (140-450); Red Blood Cells 4.84 10^6/uL (4.0-5.20); Red Cell Distribution Width 14.8 % (11.8-14.3); White Blood Cell 17.2 10^3/uL (4.4-10.8)
[2019-09-21 16:04] LABS: Albumin 3.7 g/dL (3.4-5.0); Anion Gap 8 (5-15); Blood Urea Nitrogen 16 mg/dL (7-18); Calcium 9.3 mg/dL (8.5-10.1); Carbon Dioxide 24 mmol/L (21-32); Chloride 106 mmol/L (98-107); Glucose 139 mg/dL (74-106); Sodium 138 mmol/L (136-145)
[2019-09-21 16:14] LABS: Alanine Aminotransferase 20 U/L (13-56); Alkaline Phosphatase 78 U/L (45-117); Aspartate Aminotransferase 17 U/L (15-37); BUN/Creatinine Ratio 11.6; GFR African American 48 mL/min; GFR Non-African American 39 mL/min
[2019-09-21 16:15] LABS: Bilirubin, Total 0.6 mg/dL (0.2-1.0); Total Protein 7.8 g/dL (6.4-8.2)
[2019-09-21] MEDS ORDERED: MORPHINE SULF INJ 2 MG/ML SYRINGE 1ML IV ONE (17:15)
[2019-09-21] MEDS ORDERED: metroNIDAZOLE 500MG/100ML 100 ML IV ONE (17:15)
[2019-09-21] MEDS ORDERED: ONDANSETRON HCL 4 MG/2 ML VIAL IV ONE (17:15)
[2019-09-21] MEDS ORDERED: SODIUM CHLORIDE 0.9% 500 ML IV ONE (17:15)
[2019-09-21] MEDS ORDERED: ATENOLOL 25 MG TAB PO ONE (20:15)
[2019-09-21] MEDS ORDERED: DEXTROSE (50%) 50ML SYRG IV PRN (20:15)
[2019-09-21] MEDS ORDERED: NITROGLYCERIN 0.4 MG SL TAB SL PRN (20:15)
[2019-09-21] MEDS ORDERED: MORPHINE SULF INJ 2 MG/ML SYRINGE 1ML IV PRN (20:15)
[2019-09-21] MEDS: SODIUM CHLORIDE 0.9% 1,000 ML IV SCH (20:39)
[2019-09-21] MEDS: FAMOTIDINE (10MG/ML) 2ML VL IV SCH (21:12)
[2019-09-21] MEDS: ATORVASTATIN 20 MG TAB PO SCH (21:12)
[2019-09-21] MEDS: InsuLIN REG 1unit/0.01ml Soln (100units/ml) SC SCH (21:40)
[2019-09-21] MEDS: ACCU-CHEK COMFORT CURVE STRIP VI SCH (21:41)
[2019-09-21 22:00] VITALS: BP 119/54
[2019-09-21] MEDS: metroNIDAZOLE 500MG/100ML 100 ML IV SCH (22:01)
[2019-09-22] VITALS (7 sets, daily range): BP systolic 118–147; BP diastolic 63–78
[2019-09-22] MEDS: MORPHINE SULF INJ 2 MG/ML SYRINGE 1ML IV PRN (05:03)
[2019-09-22] MEDS: metroNIDAZOLE 500MG/100ML 100 ML IV SCH ×3 (05:45→23:13)
[2019-09-22] MEDS: InsuLIN REG 1unit/0.01ml Soln (100units/ml) SC SCH ×4 (06:03→22:00)
[2019-09-22] MEDS: ACCU-CHEK COMFORT CURVE STRIP VI SCH ×4 (06:04→22:00)
[2019-09-22] MEDS: SODIUM CHLORIDE 0.9% 1,000 ML IV SCH ×2 (06:15→16:15)
[2019-09-22 06:52] LABS: Basophils # (auto) 0 10 ^3/uL (0-0.2); Basophils % (auto) 0.2 % (0.0-2.0); Eosinophils # (auto) 0.1 10 ^3/uL (0-0.8); Hematocrit 36.3 % (36.0-46.0); Hemoglobin 12.2 g/dL (12.2-16.2); Lymphocytes # (auto) 1.9 10 ^3/uL (0.4-5.4); Lymphocytes % (auto) 18.4 % (10.0-50.0); Mean Corpuscular Hemoglobin 30.8 pg (28.0-32.0); Mean Corpuscular Hgb Conc. 33.7 g/dL (32.0-36.0); Mean Corpuscular Volume 91.3 fL (80.0-100.0); Monocytes % (auto) 9.5 % (0.0-12.0); Neutrophils # (auto) 7.5 10 ^3/uL (1.6-8.6); Neutrophils % (auto) 70.9 % (37.0-80.0); Platelet Count (auto) 185 10^3/uL (140-450); Red Blood Cells 3.97 10^6/uL (4.0-5.20); Red Cell Distribution Width 14.9 % (11.8-14.3); White Blood Cell 10.5 10^3/uL (4.4-10.8)
[2019-09-22 07:17] LABS: Calcium 8.7 mg/dL (8.5-10.1); Potassium 3.7 mmol/L (3.5-5.1)
[2019-09-22 07:23] LABS: Albumin 2.9 g/dL (3.4-5.0); BUN/Creatinine Ratio 16.7; Bilirubin, Total 0.6 mg/dL (0.2-1.0); Total Protein 6.1 g/dL (6.4-8.2)
[2019-09-22] MEDS: levoFLOXacin 500MG 100 ML IV SCH (10:25)
[2019-09-22] MEDS: FAMOTIDINE (10MG/ML) 2ML VL IV SCH (10:25)
[2019-09-22] MEDS: ZOLPIDEM TARTRATE 5 MG TAB PO PRN (23:12)
[2019-09-22] MEDS: ATORVASTATIN 20 MG TAB PO SCH (23:12)
[2019-09-23 02:00] VITALS: BP 119/76
[2019-09-23 05:00] VITALS: BP 130/79
[2019-09-23] MEDS: SODIUM CHLORIDE 0.9% 1,000 ML IV SCH ×3 (06:26→20:30)
[2019-09-23] MEDS: metroNIDAZOLE 500MG/100ML 100 ML IV SCH ×3 (06:26→22:00)
[2019-09-23] MEDS: ACCU-CHEK COMFORT CURVE STRIP VI SCH ×4 (06:44→22:00)
[2019-09-23] MEDS: InsuLIN REG 1unit/0.01ml Soln (100units/ml) SC SCH ×4 (06:56→22:00)
[2019-09-23] MEDS: FAMOTIDINE (10MG/ML) 2ML VL IV SCH (07:51)
[2019-09-23] MEDS ORDERED: ONDANSETRON HCL 4 MG/2 ML VIAL ONE (08:30)
[2019-09-23 09:00] VITALS: BP 98/51
[2019-09-23] MEDS: levoFLOXacin 500MG 100 ML IV SCH (09:32)
[2019-09-23] MEDS ORDERED: PANTOPRAZOLE 40 MG/10 ML VIAL INJ IV SCH (10:00)
[2019-09-23] MEDS: MORPHINE SULF INJ 2 MG/ML SYRINGE 1ML IV PRN (11:21)
[2019-09-23 13:00] VITALS: BP 110/65
[2019-09-23 16:43] VITALS: BP 130/72
[2019-09-23 22:00] VITALS: BP 144/69
[2019-09-23] MEDS: ATORVASTATIN 20 MG TAB PO SCH (22:00)
[2019-09-24] MEDS: ZOLPIDEM TARTRATE 5 MG TAB PO PRN (00:53)
[2019-09-24] MEDS: SODIUM CHLORIDE 0.9% 1,000 ML IV SCH ×2 (03:31→10:16)
[2019-09-24 05:00] VITALS: BP 129/70
[2019-09-24] MEDS: metroNIDAZOLE 500MG/100ML 100 ML IV SCH ×3 (05:35→22:42)
[2019-09-24 05:57] LABS: Basophils # (auto) 0 10 ^3/uL (0-0.2); Basophils % (auto) 0.4 % (0.0-2.0); Eosinophils # (auto) 0.2 10 ^3/uL (0-0.8); Eosinophils % (auto) 2.5 % (0.0-7.0); Hematocrit 35.6 % (36.0-46.0); Lymphocytes # (auto) 1.6 10 ^3/uL (0.4-5.4); Lymphocytes % (auto) 23.4 % (10.0-50.0); Mean Corpuscular Hemoglobin 30.5 pg (28.0-32.0); Mean Corpuscular Hgb Conc. 33.8 g/dL (32.0-36.0); Mean Corpuscular Volume 90.1 fL (80.0-100.0); Monocytes # (auto) 0.6 10 ^3/uL (0-1.3); Monocytes % (auto) 8.9 % (0.0-12.0); Neutrophils # (auto) 4.5 10 ^3/uL (1.6-8.6); Neutrophils % (auto) 64.8 % (37.0-80.0); Platelet Count (auto) 178 10^3/uL (140-450); Red Blood Cells 3.95 10^6/uL (4.0-5.20); Red Cell Distribution Width 14.6 % (11.8-14.3); White Blood Cell 6.9 10^3/uL (4.4-10.8)
[2019-09-24] MEDS: InsuLIN REG 1unit/0.01ml Soln (100units/ml) SC SCH ×4 (06:47→22:00)
[2019-09-24] MEDS: ACCU-CHEK COMFORT CURVE STRIP VI SCH ×4 (06:48→22:00)
[2019-09-24 06:50] LABS: BUN/Creatinine Ratio 14.9; Calcium 8.4 mg/dL (8.5-10.1); Potassium 3.4 mmol/L (3.5-5.1)
[2019-09-24 08:38] VITALS: BP 133/71
[2019-09-24] MEDS: levoFLOXacin 500MG 100 ML IV SCH (10:08)
[2019-09-24] MEDS: FAMOTIDINE (10MG/ML) 2ML VL IV SCH (10:09)
[2019-09-24] MEDS: ONDANSETRON HCL 4 MG/2 ML VIAL IV PRN ×2 (10:09→16:01)
[2019-09-24] MEDS: MORPHINE SULF INJ 2 MG/ML SYRINGE 1ML IV PRN ×2 (10:10→16:01)
[2019-09-24 12:25] VITALS: BP 155/80
[2019-09-24 16:25] VITALS: BP 145/70
[2019-09-24 22:00] VITALS: BP 170/82
[2019-09-24] MEDS: ATORVASTATIN 20 MG TAB PO SCH (22:42)
[2019-09-25] MEDS: SODIUM CHLORIDE 0.9% 1,000 ML IV SCH ×3 (01:19→10:13)
[2019-09-25] MEDS: ZOLPIDEM TARTRATE 5 MG TAB PO PRN (01:23)
[2019-09-25 05:00] VITALS: BP 143/80
[2019-09-25] MEDS: metroNIDAZOLE 500MG/100ML 100 ML IV SCH (05:27)
[2019-09-25] MEDS: InsuLIN REG 1unit/0.01ml Soln (100units/ml) SC SCH ×2 (06:50→12:14)
[2019-09-25] MEDS: ACCU-CHEK COMFORT CURVE STRIP VI SCH ×2 (06:50→12:14)
[2019-09-25 09:05] VITALS: BP 141/79
[2019-09-25] MEDS ORDERED: levoFLOXacin 250MG 50 ML IV SCH (10:00)
[2019-09-25] MEDS: FAMOTIDINE (10MG/ML) 2ML VL IV SCH (10:06)
[2019-09-25] MEDS ORDERED: POTASSIUM CHL 20 Meq TABLET PO ONE (11:15)
[2019-09-25 13:00] VITALS: BP 159/86
== END 2019-09-25 13:13 | disposition home or self-care (01) | DRG 872 ==
LOC: ER 14:57 → OVERFLOW 14:58 → WEST WING 20:50
PROVIDERS: ADMIT Nurse Practitioner Acute Care; ATTEND Family Medicine
DX: A41.9 Sepsis, unspecified organism (principal); K57.32 Diverticulitis of large intestine without perforation or abscess without bleeding; G93.40 Encephalopathy, unspecified; N18.3 Chronic kidney disease, stage 3 (moderate); E11.40 Type 2 diabetes mellitus with diabetic neuropathy, unspecified; E78.00 Pure hypercholesterolemia, unspecified; E86.0 Dehydration; F32.9 Major depressive disorder, single episode, unspecified; Z88.8 Allergy status to other drugs, medicaments and biological substances; I12.9 Hypertensive chronic kidney disease with stage 1 through stage 4 chronic kidney disease, or unspecified chronic kidney disease; E11.22 Type 2 diabetes mellitus with diabetic chronic kidney disease
CPT/HCPCS: 36415; 74176; 80048; 80053; 82962; 83605; 84484; 85025; 87040; 87081; 93005; 96365; 96375; G0378; J1956; J2405; J3490

== ENCOUNTER 2019-12-29 15:41 | Inpatient (IN) | payer MEDICARE, BC ==
[~2019-12-29] VITALS: Ht 154.9 cm; Wt 72.0 kg
[~2019-12-29 15:41] MED LIST changes: -APIX5TAB PO; -ATE50T PO; -ATOR20TA50 PO; -DOCU-94 PO; -LACT10SO70 PO; -PANT40TA2 PO
[2019-12-29 17:11] LABS: Basophils # (auto) 0 10 ^3/uL (0-0.2); Basophils % (auto) 0.2 % (0.0-2.0); Eosinophils # (auto) 0 10 ^3/uL (0-0.8); Eosinophils % (auto) 0.2 % (0.0-7.0); Hematocrit 40.6 % (36.0-46.0); Hemoglobin 12.9 g/dL (12.2-16.2); Lymphocytes # (auto) 0.8 10 ^3/uL (0.4-5.4); Lymphocytes % (auto) 10.1 % (10.0-50.0); Mean Corpuscular Hemoglobin 29.4 pg (28.0-32.0); Mean Corpuscular Hgb Conc. 31.9 g/dL (32.0-36.0); Mean Corpuscular Volume 92.3 fL (80.0-100.0); Monocytes # (auto) 0.4 10 ^3/uL (0-1.3); Monocytes % (auto) 4.6 % (0.0-12.0); Neutrophils # (auto) 6.6 10 ^3/uL (1.6-8.6); Neutrophils % (auto) 84.9 % (37.0-80.0); Nucleated Red Blood Cells % 0.1 %; Platelet Count (auto) 201 10^3/uL (140-450); Red Cell Distribution Width 15.3 % (11.8-14.3); White Blood Cell 7.8 10^3/uL (4.4-10.8)
[2019-12-29 17:21] LABS: Albumin 3.1 g/dL (3.4-5.0); Anion Gap 5 (5-15); BUN/Creatinine Ratio 11.9; Blood Urea Nitrogen 12 mg/dL (7-18); Calcium 8.2 mg/dL (8.5-10.1); Carbon Dioxide 25 mmol/L (21-32); Chloride 110 mmol/L (98-107); GFR African American 68 mL/min; GFR Non-African American 56 mL/min; Glucose 95 mg/dL (74-106); Sodium 140 mmol/L (136-145)
[2019-12-29 17:35] LABS: Alanine Aminotransferase 19 U/L (13-56); Alkaline Phosphatase 57 U/L (45-117); Aspartate Aminotransferase 18 U/L (15-37); Bilirubin, Total 0.3 mg/dL (0.2-1.0); Total Protein 6.2 g/dL (6.4-8.2)
[2019-12-29] MEDS ORDERED: MORPHINE SULF INJ 2 MG/ML SYRINGE 1ML IV PRN (18:30)
[2019-12-29] MEDS ORDERED: DEXTROSE (50%) 50ML SYRG IV ONE (18:30)
[2019-12-29] MEDS ORDERED: DEXTROSE 10% 1,000 ML IV ONE (18:30)
[2019-12-29] MEDS ORDERED: NITROGLYCERIN 0.4 MG SL TAB SL PRN (18:30)
[2019-12-29 20:00] VITALS: BP 156/72
--- NOTE | 2019-12-29 20:00 | NUR ---
Telemetry admit from ER JADE CARRINGTON admitted to Telemetry unit after SBAR received. Patient oriented to Caryn vasquez RN, unit, room, bed, and unit policies regarding patient care and visiting hours. Patient now on continuous telemetry monitoring, tele box # 29 and telemetry reading on arrival to unit is SR 72. Patient placed on bedside oxygen, weighed by bed scale and encouraged to call if they need something. All questions and concerns addressed, patient verbalized understanding. Note: Came per wheelchair awke alert oriented x 4, placed in the bed comfortably, vital signs checked.
[2019-12-29 21:17] VITALS: BP 156/72
[2019-12-29] MEDS ORDERED: ONDA-144 PO (21:37)
[2019-12-29] MEDS ORDERED: ATOR40TA52 PO (21:37)
[2019-12-29] MEDS ORDERED: CITA10TA70 PO (21:37)
[2019-12-29] MEDS ORDERED: GLIM1TAB3 PO (21:37)
[2019-12-29] MEDS ORDERED: ZOLP5TAB5 PO (21:37)
[2019-12-29 22:00] VITALS: BP 156/72
[2019-12-30] MEDS ORDERED: HYDROcodone-ACET 5/325MG TAB PO PRN
[2019-12-30] MEDS ORDERED: DEXTROSE (50%) 50ML SYRG IV PRN
[2019-12-30] MEDS ORDERED: ONDANSETRON HCL 4 MG/2 ML VIAL IV PRN
[2019-12-30] MEDS ORDERED: MORPHINE SULF INJ 2 MG/ML SYRINGE 1ML IV PRN ×2
[2019-12-30] MEDS ORDERED: ALUM & MAG HYDROX-SIMETH LIQ(MAALOX) 30 ML PO PRN
[2019-12-30] MEDS ORDERED: DOCUSATE SOD 100 MG CAP PO PRN
[2019-12-30] MEDS ORDERED: NITROGLYCERIN 0.4 MG SL TAB SL PRN
[2019-12-30] MEDS ORDERED: LORazepam 0.5 MG TAB PO PRN
--- NOTE | 2019-12-30 00:05 | NUR ---
Called/paged Alexi Healy called re:sleeping pill . Waiting for call back. Continue care.
[2019-12-30] MEDS ORDERED: LACTULOSE 20Gm/30ML SOLN PO PRN (00:15)
[2019-12-30] MEDS ORDERED: metroNIDAZOLE 500MG/100ML 100 ML IV ONE (00:15)
[2019-12-30] MEDS ORDERED: hydrALAZINE HCL 20 MG/ML VL IV PRN (00:15)
[2019-12-30] MEDS ORDERED: CIPROFLOXACIN 400MG/200ML 200 ML IV ONE (00:15)
[2019-12-30] MEDS: D5W/ SOD CHL 0.9%/KCL 20MEQ 1,000 ML IV SCH ×3 (00:17→16:36)
[2019-12-30 00:34] LABS: Urine Bacteria NONE SEEN /hpf (None Seen); Urine Blood Negative /uL (Negative); Urine Specific Gravity 1.014 (1.001-1.035); Urine WBC <1 /hpf (0 - 5)
[2019-12-30 00:45] LABS: Amphetamine Screen, Urine NEGATIVE (NEGATIVE); Barbiturate Scree,Urine NEGATIVE (NEGATIVE); Benzodiazephine Screen, Urine NEGATIVE (NEGATIVE); Cannabinoid Screen, Urine NEGATIVE (NEGATIVE); Cocaine Screen, Urine NEGATIVE (NEGATIVE); Opiate Scree,Urine NEGATIVE (NEGATIVE); Phencyclidine Screen, Urine NEGATIVE (NEGATIVE)
[2019-12-30 00:50] LABS: Alcohol, Urine < 3.0 mg/dL (0-10)
--- NOTE | 2019-12-30 00:53 | NUR ---
returned call Alexi Ho returned call, updated on patient status and reason for call, orders received of temazepam 15mg.p.o. x one. Continue care.
[2019-12-30] MEDS ORDERED: TEMAZEPAM 15 MG CAP PO ONE (01:00)
[2019-12-30 05:00] VITALS: BP 110/68
[2019-12-30] MEDS: metroNIDAZOLE 500MG/100ML 100 ML IV SCH ×3 (05:27→21:35)
[2019-12-30 06:13] LABS: Basophils # (auto) 0 10 ^3/uL (0-0.2); Basophils % (auto) 0.2 % (0.0-2.0); Eosinophils # (auto) 0.1 10 ^3/uL (0-0.8); Hematocrit 39.9 % (36.0-46.0); Lymphocytes # (auto) 1.9 10 ^3/uL (0.4-5.4); Lymphocytes % (auto) 26.3 % (10.0-50.0); Mean Corpuscular Hemoglobin 29.7 pg (28.0-32.0); Mean Corpuscular Hgb Conc. 32.6 g/dL (32.0-36.0); Mean Corpuscular Volume 91.1 fL (80.0-100.0); Monocytes # (auto) 0.6 10 ^3/uL (0-1.3); Monocytes % (auto) 8.8 % (0.0-12.0); Neutrophils # (auto) 4.6 10 ^3/uL (1.6-8.6); Neutrophils % (auto) 62.7 % (37.0-80.0); Platelet Count (auto) 194 10^3/uL (140-450); Red Blood Cells 4.38 10^6/uL (4.0-5.20); Red Cell Distribution Width 15.2 % (11.8-14.3); White Blood Cell 7.3 10^3/uL (4.4-10.8)
[2019-12-30] MEDS: ACCU-CHEK COMFORT CURVE STRIP VI SCH ×4 (06:13→21:33)
[2019-12-30] MEDS: InsuLIN REG 1unit/0.01ml Soln (100units/ml) SC SCH ×3 (06:13→17:00)
[2019-12-30 06:17] LABS: Potassium 3.8 mmol/L (3.5-5.1)
[2019-12-30 06:21] LABS: Partial Thromboplastin Time 26.4 sec (23.64-32.05)
[2019-12-30 06:25] LABS: Albumin 3.1 g/dL (3.4-5.0); BUN/Creatinine Ratio 12.5; Calcium 8.6 mg/dL (8.5-10.1)
[2019-12-30 06:28] LABS: Bilirubin, Total 0.4 mg/dL (0.2-1.0); Phosphorus 2.9 mg/dL (2.5-4.90); Total Protein 6.3 g/dL (6.4-8.2)
--- NOTE | 2019-12-30 06:47 | NUR ---
Send the stool specimen to lab for c-diff.
--- NOTE | 2019-12-30 07:19 | NUR ---
Report given to Sandi Cummings, patient is resting no distress.
--- NOTE | 2019-12-30 07:30 | NUR ---
Patient in bed, awake, oriented x4. No acute distress noted. Patient stated she had multiple diarrhea. Patient uses the bedside commode to void and bowel movement.
[2019-12-30 08:20] VITALS: BP 131/60
[2019-12-30 09:04] VITALS: BP 131/60
[2019-12-30] MEDS: CHOLECALCIFEROL (VITD3) 1,000IU=25mCg TAB PO SCH (09:13)
[2019-12-30] MEDS: FAMOTIDINE 20 MG TAB PO SCH ×2 (09:13→21:34)
[2019-12-30] MEDS: CIPROFLOXACIN 400MG/200ML 200 ML IV SCH ×2 (09:13→21:35)
[2019-12-30] MEDS: PANCREATIC ENZYMES 4200 UNIT CAP PO SCH ×3 (09:14→18:32)
[2019-12-30] MEDS: busPIRone HCL 10 MG TAB PO SCH ×2 (09:14→21:34)
[2019-12-30] MEDS: CITALOPRAM HYDROBR 20 MG TAB PO SCH (09:15)
[2019-12-30] MEDS: METOPROLOL SUCCINATE XL 50 MG TAB PO SCH (09:15)
[2019-12-30] MEDS: ENOXAPARIN SOD 40 MG/0.4 ML SYRINGE SC SCH ×2 (09:18→21:36)
--- NOTE | 2019-12-30 11:15 | NUR ---
Salomon Carroll at bedside. Patient for possible discharge tomorrow, Thursday.
[2019-12-30 12:36] VITALS: BP 138/72
[2019-12-30 16:46] VITALS: BP 110/67
--- NOTE | 2019-12-30 20:00 | NUR ---
Opening Shift Note Assumed care of patient, awake and alert. No S/S of distress/SOB or pain. Instructed on POC and to call for assist PRN, will continue to monitor for changes Q1hr and PRN. bed in low position and call light within reach. fall precautions in place.
[2019-12-30 22:00] VITALS: BP 143/72
[2019-12-30] MEDS ORDERED: ATORVASTATIN 20 MG TAB PO SCH (22:00)
[2019-12-30] MEDS ORDERED: InsuLIN REG 1unit/0.01ml Soln (100units/ml) SC SCH (22:00)
--- NOTE | 2019-12-30 22:01 | NUR ---
PATIENT REQUESTING SLEEPING PILL. NOTIFIED HOSPITALIST NEW ORDERS RECEIVED . ORDERS READ BACK AND VERIFIED BY MD MERCEDES.
[2019-12-30] MEDS ORDERED: TEMAZEPAM 15 MG CAP PO PRN (22:15)
--- NOTE | 2019-12-30 22:40 | NUR ---
IV removal/IV insertion IV DC'd with clean sterile technique, catheter fully intact. Pressure dressing applied to site. Patient tolerated well. IV insertion IV access obtained, via clean sterile technique by inserting 22 gauge catheter at right wrist after 1 attempt. IV secured properly. No trauma to site. Patient tolerated well.
[2019-12-31] MEDS: D5W/ SOD CHL 0.9%/KCL 20MEQ 1,000 ML IV SCH ×2 (00:58→09:20)
[2019-12-31 05:00] VITALS: BP 142/64
[2019-12-31] MEDS: metroNIDAZOLE 500MG/100ML 100 ML IV SCH (05:30)
[2019-12-31] MEDS: ACCU-CHEK COMFORT CURVE STRIP VI SCH (06:06)
[2019-12-31] MEDS: InsuLIN REG 1unit/0.01ml Soln (100units/ml) SC SCH (06:06)
--- NOTE | 2019-12-31 06:46 | NUR ---
PATIENT ROUNDS Patient is awake and alert. denies sob distress or pain. Patient running iv fluids as scheduled, iv patent and asymptomatic.Patient resting in bed. bed in low position and call light within reach. fall precautions in place
--- NOTE | 2019-12-31 07:05 | NUR ---
REPORT GIVEN TO DAYSHIFT RN PATIENT DENIES SOB DISTRESS OR PAIN
[2019-12-31 09:00] VITALS: BP 116/54
[2019-12-31] MEDS: CIPROFLOXACIN 400MG/200ML 200 ML IV SCH (10:56)
[2019-12-31] MEDS: ENOXAPARIN SOD 40 MG/0.4 ML SYRINGE SC SCH (10:58)
[2019-12-31] MEDS: CHOLECALCIFEROL (VITD3) 1,000IU=25mCg TAB PO SCH (10:58)
[2019-12-31] MEDS: FAMOTIDINE 20 MG TAB PO SCH (10:59)
[2019-12-31] MEDS: CITALOPRAM HYDROBR 20 MG TAB PO SCH (10:59)
[2019-12-31] MEDS: busPIRone HCL 10 MG TAB PO SCH (10:59)
[2019-12-31] MEDS: METOPROLOL SUCCINATE XL 50 MG TAB PO SCH (11:00)
[2019-12-31] MEDS: PANCREATIC ENZYMES 4200 UNIT CAP PO SCH (11:04)
[2019-12-31 12:08] VITALS: BP 116/64
--- NOTE | 2019-12-31 13:49 | NUR ---
Discharge instructions given as ordered. Encourage to follow up with PMD as instructed. All questions and concerns addressed. Patient verbalized understanding. Medication reconciliation form completed and copy given to patient. IV removed with catheter intact, pressure dressing applied . Telemetry unit returned to ICU. Patient taken to vehicle via wheelchair with all personal belongings, accompanied by staff and family member. No distress noted at time of departure.
== END 2019-12-31 15:20 | disposition home or self-care (01) | DRG 637 ==
LOC: ER 15:41 → TELE 15:42 → TELE-CENTR 20:00
PROVIDERS: ADMIT Hospitalist; ATTEND Family Medicine
DX: E11.649 Type 2 diabetes mellitus with hypoglycemia without coma (principal); G93.41 Metabolic encephalopathy; I10 Essential (primary) hypertension; E66.9 Obesity, unspecified; F32.9 Major depressive disorder, single episode, unspecified; K21.9 Gastro-esophageal reflux disease without esophagitis; K44.9 Diaphragmatic hernia without obstruction or gangrene; E11.40 Type 2 diabetes mellitus with diabetic neuropathy, unspecified; E78.00 Pure hypercholesterolemia, unspecified; E78.5 Hyperlipidemia, unspecified; F41.9 Anxiety disorder, unspecified; K58.9 Irritable bowel syndrome, unspecified; Z79.899 Other long term (current) drug therapy; Z86.718 Personal history of other venous thrombosis and embolism; Z90.49 Acquired absence of other specified parts of digestive tract; Z90.710 Acquired absence of both cervix and uterus; Z68.29 Body mass index [BMI] 29.0-29.9, adult
CPT/HCPCS: 36415; 70450; 71045; 80053; 80061; 80307; 81001; 82962; 83036; 83735; 84100; 84484; 85025; 85610; 85730; 87040; 87086; 87493; 93005; G0378; J2405; J3490; J7042

== ENCOUNTER → 2020-07-04 | Outpatient (CLI) | payer MEDICARE, BC ==
[~2020-07-04] MED LIST changes: +ATOR40TA52 PO; -BUSP10TA31 PO; -CALC600T80 PO; +CITA10TA70 PO; +GLIM-5 PO; -INSU1.2I SC; -MAGN400C2 PO; -METF-370 PO; +ONDA-144 PO; -PANC3000 PO; -POTA10TA51 PO; +ZOLP5TAB5 PO
[2020-07-04 10:48] LABS: Urine Bacteria NONE SEEN /hpf (None Seen); Urine Blood Negative /uL (Negative); Urine Mucus FEW (None Seen); Urine WBC 10 /hpf (0 - 5)
== END | disposition home or self-care (01) ==
LOC: LAB 10:30
PROVIDERS: ATTEND Internal Medicine Gastroenterology
DX: R10.9 Unspecified abdominal pain (principal)
CPT/HCPCS: 81001; 87086

== ENCOUNTER → 2020-07-18 | Outpatient (CLI) | payer MEDICARE, BC ==
[2020-07-18 11:52] LABS: Basophils # (auto) 0 10 ^3/uL (0-0.2); Basophils % (auto) 0.4 % (0.0-2.0); Eosinophils # (auto) 0.2 10 ^3/uL (0-0.8); Hematocrit 44.4 % (36.0-46.0); Hemoglobin 14.7 g/dL (12.2-16.2); Lymphocytes # (auto) 3.1 10 ^3/uL (0.4-5.4); Lymphocytes % (auto) 29.1 % (10.0-50.0); Mean Corpuscular Hemoglobin 30.7 pg (28.0-32.0); Monocytes # (auto) 0.9 10 ^3/uL (0-1.3); Monocytes % (auto) 7.9 % (0.0-12.0); Neutrophils # (auto) 6.5 10 ^3/uL (1.6-8.6); Neutrophils % (auto) 60.6 % (37.0-80.0); Platelet Count (auto) 248 10^3/uL (140-450); Red Blood Cells 4.78 10^6/uL (4.0-5.20); Red Cell Distribution Width 14.2 % (11.8-14.3); White Blood Cell 10.8 10^3/uL (4.4-10.8)
[2020-07-18 12:19] LABS: Albumin 3.4 g/dL (3.4-5.0); Calcium 8.6 mg/dL (8.5-10.1); Potassium 3.7 mmol/L (3.5-5.1)
[2020-07-18 12:22] LABS: BUN/Creatinine Ratio 8.4; Bilirubin, Total 0.3 mg/dL (0.2-1.0); Total Protein 7.1 g/dL (6.4-8.2)
== END | disposition home or self-care (01) ==
LOC: LAB 11:35
PROVIDERS: ATTEND Internal Medicine Gastroenterology
DX: R19.7 Diarrhea, unspecified (principal); R10.9 Unspecified abdominal pain
CPT/HCPCS: 36415; 80053; 85025

== ENCOUNTER 2020-07-30 01:26 | Emergency (ER) | payer MEDICARE, BC ==
[~2020-07-30] VITALS: Ht 162.6 cm; Wt 72.1 kg
[2020-07-30 01:47] LABS: Basophils # (auto) 0.1 10 ^3/uL (0-0.2); Basophils % (auto) 0.6 % (0.0-2.0); Eosinophils # (auto) 0.1 10 ^3/uL (0-0.8); Eosinophils % (auto) 0.7 % (0.0-7.0); Hematocrit 47.6 % (36.0-46.0); Hemoglobin 15.8 g/dL (12.2-16.2); Lymphocytes # (auto) 3.5 10 ^3/uL (0.4-5.4); Lymphocytes % (auto) 23.1 % (10.0-50.0); Mean Corpuscular Hemoglobin 30.2 pg (28.0-32.0); Mean Corpuscular Hgb Conc. 33.3 g/dL (32.0-36.0); Mean Corpuscular Volume 90.8 fL (80.0-100.0); Monocytes # (auto) 1.3 10 ^3/uL (0-1.3); Monocytes % (auto) 8.5 % (0.0-12.0); Neutrophils # (auto) 10.1 10 ^3/uL (1.6-8.6); Neutrophils % (auto) 67.1 % (37.0-80.0); Nucleated Red Blood Cells % 0.1 %; Platelet Count (auto) 278 10^3/uL (140-450); Red Blood Cells 5.24 10^6/uL (4.0-5.20); Red Cell Distribution Width 13.7 % (11.8-14.3)
[2020-07-30 02:07] LABS: Albumin 3.5 g/dL (3.4-5.0); Amylase 205 U/L (25-115); Anion Gap 13 (5-15); BUN/Creatinine Ratio 19.5; Blood Urea Nitrogen 32 mg/dL (7-18); Calcium 8.5 mg/dL (8.5-10.1); Carbon Dioxide 15 mmol/L (21-32); Chloride 107 mmol/L (98-107); GFR African American 39 mL/min; GFR Non-African American 32 mL/min; Glucose 157 mg/dL (74-106); Lipase 671 U/L (73-393); Magnesium 1.2 mg/dL (1.6-2.6); Potassium 3.4 mmol/L (3.5-5.1); Sodium 135 mmol/L (136-145)
[2020-07-30 02:13] LABS: Alanine Aminotransferase 18 U/L (13-56); Alkaline Phosphatase 80 U/L (45-117); Aspartate Aminotransferase 15 U/L (15-37); Bilirubin, Total 0.6 mg/dL (0.2-1.0); Total Protein 6.7 g/dL (6.4-8.2)
[2020-07-30 02:24] LABS: Partial Thromboplastin Time 27.7 sec (23.0-31.2)
[2020-07-30 02:25] LABS: INR 1.15 (0.9-1.15)
[2020-07-30] MEDS ORDERED: SODIUM CHLORIDE 0.9% 1,000 ML IV ONE (03:45)
[2020-07-30 05:31] LABS: Urine Bacteria FEW /hpf (None Seen); Urine Blood Negative /uL (Negative); Urine Hyaline Cast FEW /lpf (0 - 2); Urine Mucus FEW (None Seen); Urine Specific Gravity 1.021 (1.001-1.035); Urine WBC 4 /hpf (0 - 5)
[2020-07-30 05:43] VITALS: BP 141/68
== END 2020-07-30 06:16 | disposition home or self-care (01) ==
LOC: ER 01:26
DX: K85.90 Acute pancreatitis without necrosis or infection, unspecified (principal); Z90.49 Acquired absence of other specified parts of digestive tract; Z90.710 Acquired absence of both cervix and uterus; Z88.6 Allergy status to analgesic agent
CPT/HCPCS: 36415; 74176; 80053; 81001; 82150; 83605; 83690; 83735; 83880; 84484; 85025; 85610; 85730; 87040; 87086; 96360; 99284; J7030; 87088; 87186

== ENCOUNTER → 2020-09-05 | Outpatient (CLI) | payer MEDICARE, BC | END | disposition home or self-care (01) | LOC: XYW 13:35 | PROVIDERS: ATTEND Internal Medicine Gastroenterology | DX: N28.1 Cyst of kidney, acquired (principal); N28.89 Other specified disorders of kidney and ureter; K57.30 Diverticulosis of large intestine without perforation or abscess without bleeding; R10.33 Periumbilical pain; R19.7 Diarrhea, unspecified; Z90.49 Acquired absence of other specified parts of digestive tract | CPT/HCPCS: 74181 ==

== ENCOUNTER → 2020-09-25 | Outpatient (CLI) | payer MEDICARE, BC ==
[~2020-09-25] MED LIST changes: +SERT50TA PO
[2020-09-25 15:33] LABS: Basophils # (auto) 0 10 ^3/uL (0-0.2); Basophils % (auto) 0.5 % (0.0-2.0); Eosinophils # (auto) 0.3 10 ^3/uL (0-0.8); Hematocrit 42.9 % (36.0-46.0); Hemoglobin 14.4 g/dL (12.2-16.2); Lymphocytes % (auto) 33.7 % (10.0-50.0); Mean Corpuscular Hemoglobin 31.2 pg (28.0-32.0); Mean Corpuscular Hgb Conc. 33.5 g/dL (32.0-36.0); Mean Corpuscular Volume 93.1 fL (80.0-100.0); Monocytes # (auto) 0.6 10 ^3/uL (0-1.3); Monocytes % (auto) 6.8 % (0.0-12.0); Nucleated Red Blood Cells % 0.1 %; Platelet Count (auto) 193 10^3/uL (140-450); White Blood Cell 8.9 10^3/uL (4.4-10.8)
[2020-09-25 16:26] LABS: Albumin 3.4 g/dL (3.4-5.0); Calcium 8.1 mg/dL (8.5-10.1); Potassium 3.6 mmol/L (3.5-5.1)
[2020-09-25 16:29] LABS: Bilirubin, Total 0.5 mg/dL (0.2-1.0); Total Protein 6.8 g/dL (6.4-8.2)
== END | disposition home or self-care (01) ==
LOC: LAB 15:19
PROVIDERS: ATTEND Internal Medicine Gastroenterology
DX: R93.3 Abnormal findings on diagnostic imaging of other parts of digestive tract (principal); R19.7 Diarrhea, unspecified; K85.90 Acute pancreatitis without necrosis or infection, unspecified; R97.8 Other abnormal tumor markers
CPT/HCPCS: 36415; 80053; 82150; 82607; 83690; 85025; 86301

== ENCOUNTER 2020-10-15 14:53 | Inpatient (IN) | payer MEDICARE, BC ==
[~2020-10-15] VITALS: Ht 162.6 cm; Wt 77.5 kg
[~2020-10-15 14:53] MED LIST changes: -SERT50TA PO
[2020-10-15] MEDS ORDERED: PANTOPRAZOLE 40 MG/10 ML VIAL INJ IV STA (15:11)
[2020-10-15] MEDS ORDERED: SODIUM CHLORIDE 0.9% 1,000 ML IVB ONE (15:15)
[2020-10-15] MEDS ORDERED: ONDANSETRON HCL 4 MG/2 ML VIAL IV ONE (15:15)
[2020-10-15 15:54] LABS: Urine Bacteria FEW /hpf (None Seen); Urine Blood Negative /uL (Negative); Urine Mucus FEW (None Seen); Urine Specific Gravity 1.023 (1.001-1.035); Urine WBC 3 /hpf (0 - 5)
[2020-10-15 16:08] LABS: Basophils # (auto) 0 10 ^3/uL (0-0.2); Basophils % (auto) 0.3 % (0.0-2.0); Eosinophils # (auto) 0.1 10 ^3/uL (0-0.8); Eosinophils % (auto) 0.3 % (0.0-7.0); Hematocrit 46.2 % (36.0-46.0); Hemoglobin 15.4 g/dL (12.2-16.2); Lymphocytes # (auto) 2.1 10 ^3/uL (0.4-5.4); Lymphocytes % (auto) 14.1 % (10.0-50.0); Mean Corpuscular Hemoglobin 30.5 pg (28.0-32.0); Mean Corpuscular Hgb Conc. 33.3 g/dL (32.0-36.0); Mean Corpuscular Volume 91.8 fL (80.0-100.0); Monocytes # (auto) 1.2 10 ^3/uL (0-1.3); Neutrophils # (auto) 11.6 10 ^3/uL (1.6-8.6); Neutrophils % (auto) 77.3 % (37.0-80.0); Nucleated Red Blood Cells % 0.1 %; Platelet Count (auto) 249 10^3/uL (140-450); Red Blood Cells 5.03 10^6/uL (4.0-5.20); Red Cell Distribution Width 14.2 % (11.8-14.3)
[2020-10-15 16:28] LABS: Albumin 3.1 g/dL (3.4-5.0); Anion Gap 12 (5-15); Blood Urea Nitrogen 29 mg/dL (7-18); Calcium 8.8 mg/dL (8.5-10.1); Carbon Dioxide 19 mmol/L (21-32); Chloride 105 mmol/L (98-107); Glucose 130 mg/dL (74-106); Lipase 81 U/L (73-393); Potassium 3.6 mmol/L (3.5-5.1); Sodium 136 mmol/L (136-145)
[2020-10-15 16:34] LABS: Alanine Aminotransferase 11 U/L (13-56); Alkaline Phosphatase 86 U/L (45-117); Aspartate Aminotransferase 12 U/L (15-37); BUN/Creatinine Ratio 19.6; Bilirubin, Total 0.6 mg/dL (0.2-1.0); GFR African American 44 mL/min; GFR Non-African American 36 mL/min; Total Protein 6.5 g/dL (6.4-8.2)
[2020-10-15] MEDS ORDERED: metroNIDAZOLE 500MG/100ML 100 ML IV ONE (17:00)
[2020-10-15] MEDS ORDERED: DEXTROSE (50%) 50ML SYRG IV PRN (19:15)
[2020-10-15] MEDS ORDERED: NITROGLYCERIN 0.4 MG SL TAB SL PRN (19:15)
[2020-10-15] MEDS ORDERED: MORPHINE SULF INJ 2 MG/ML SYRINGE 1ML IV PRN (19:15)
[2020-10-15] MEDS ORDERED: levoFLOXacin 500MG 100 ML IV ONE (21:00)
[2020-10-15] MEDS: MORPHINE SULF INJ 2 MG/ML SYRINGE 1ML IV PRN (21:45)
[2020-10-15] MEDS: InsuLIN REG 1unit/0.01ml Soln (100units/ml) SC SCH (22:00)
[2020-10-15] MEDS: ATORVASTATIN 20 MG TAB PO SCH (22:54)
[2020-10-15] MEDS: LACTATED RINGER'S 1,000 ML IV SCH (23:29)
[2020-10-15] MEDS: ACCU-CHEK COMFORT CURVE STRIP VI SCH (23:30)
[2020-10-15 23:43] VITALS: BP 94/57
[2020-10-16] MEDS ORDERED: SERT50TA PO (00:12)
[2020-10-16] MEDS: ZOLPIDEM TARTRATE 5 MG TAB PO SCH ×2 (00:56→21:08)
[2020-10-16] MEDS: LACTATED RINGER'S 1,000 ML IV SCH ×4 (03:15→21:07)
[2020-10-16 05:02] VITALS: BP 88/47
[2020-10-16 05:14] VITALS: BP 97/51
[2020-10-16] MEDS: metroNIDAZOLE 500MG/100ML 100 ML IV SCH ×3 (06:01→21:06)
[2020-10-16] MEDS: ACCU-CHEK COMFORT CURVE STRIP VI SCH ×4 (06:21→21:07)
[2020-10-16] MEDS: InsuLIN REG 1unit/0.01ml Soln (100units/ml) SC SCH ×4 (06:21→21:07)
[2020-10-16 09:00] VITALS: BP 101/50
[2020-10-16] MEDS: ESOMEPRAZOLE 40 MG/5ml VIAL INJ IV SCH (10:00)
[2020-10-16] MEDS: levoFLOXacin 250MG 50 ML IV SCH (10:27)
[2020-10-16] MEDS: ENOXAPARIN SOD 30 MG/0.3 ML SYRINGE SC SCH (10:28)
[2020-10-16 13:00] VITALS: BP 103/53
[2020-10-16 17:00] VITALS: BP 110/51
[2020-10-16 17:39] LABS: INR 1.11 (0.9-1.15); Partial Thromboplastin Time 32.7 sec (23.0-31.2)
[2020-10-16] MEDS: ATORVASTATIN 20 MG TAB PO SCH (21:06)
[2020-10-16 22:04] VITALS: BP 109/70
[2020-10-17 05:19] VITALS: BP 113/74
[2020-10-17 05:46] LABS: Basophils # (auto) 0 10 ^3/uL (0-0.2); Basophils % (auto) 0.2 % (0.0-2.0); Eosinophils # (auto) 0.1 10 ^3/uL (0-0.8); Eosinophils % (auto) 2.1 % (0.0-7.0); Hematocrit 35.7 % (36.0-46.0); Hemoglobin 12.1 g/dL (12.2-16.2); Lymphocytes # (auto) 1.7 10 ^3/uL (0.4-5.4); Mean Corpuscular Hemoglobin 31.1 pg (28.0-32.0); Mean Corpuscular Volume 91.6 fL (80.0-100.0); Monocytes # (auto) 0.6 10 ^3/uL (0-1.3); Monocytes % (auto) 8.7 % (0.0-12.0); Neutrophils # (auto) 4.3 10 ^3/uL (1.6-8.6); Nucleated Red Blood Cells % 0.1 %; Platelet Count (auto) 151 10^3/uL (140-450); Red Cell Distribution Width 14.1 % (11.8-14.3); White Blood Cell 6.7 10^3/uL (4.4-10.8)
[2020-10-17 06:05] LABS: Albumin 2.2 g/dL (3.4-5.0); Potassium 3.2 mmol/L (3.5-5.1)
[2020-10-17 06:09] LABS: BUN/Creatinine Ratio 13.1; Bilirubin, Total 0.3 mg/dL (0.2-1.0); Total Protein 4.8 g/dL (6.4-8.2)
[2020-10-17] MEDS: InsuLIN REG 1unit/0.01ml Soln (100units/ml) SC SCH ×3 (06:31→18:00)
[2020-10-17] MEDS: metroNIDAZOLE 500MG/100ML 100 ML IV SCH ×3 (06:31→22:14)
[2020-10-17] MEDS: ACCU-CHEK COMFORT CURVE STRIP VI SCH ×3 (06:32→18:00)
[2020-10-17 08:35] VITALS: BP 135/73
[2020-10-17] MEDS: ESOMEPRAZOLE 40 MG/5ml VIAL INJ IV SCH (10:00)
[2020-10-17] MEDS: levoFLOXacin 250MG 50 ML IV SCH (10:09)
[2020-10-17] MEDS: ENOXAPARIN SOD 30 MG/0.3 ML SYRINGE SC SCH (10:09)
[2020-10-17 12:35] VITALS: BP 117/69
[2020-10-17] MEDS: LACTATED RINGER'S 1,000 ML IV SCH (13:56)
[2020-10-17] MEDS ORDERED: TPN PER PHARMACY 0 ML IV SCH (14:00)
[2020-10-17] MEDS ORDERED: LIDOCAINE 1% (LOCAL ANESTH.) PF 5ml SDV ID ONE (15:00)
[2020-10-17 15:17] LABS: Magnesium 1.9 mg/dL (1.6-2.6); Phosphorus 2.6 mg/dL (2.5-4.90)
[2020-10-17 15:21] LABS: Pre Albumin 8.3 mg/dL (20.0-40.0)
[2020-10-17] MEDS ORDERED: POTASSIUM CHL 20MEQ/100ML 200 ML IV ONE (15:45)
[2020-10-17 16:35] VITALS: BP 125/71
[2020-10-17] MEDS ORDERED: DEXTROSE (50%) 50ML SYRG IV SCH (18:00)
[2020-10-17 20:00] VITALS: BP 112/57
[2020-10-17] MEDS ORDERED: POTASSIUM CHL 20MEQ/100ML 100 ML IV ONE (20:00)
[2020-10-17] MEDS ORDERED: AMINO ACID INFUSION IN D10W 1,000 ML IV NR (20:00)
[2020-10-17 22:00] VITALS: BP 112/57
[2020-10-17] MEDS: ZOLPIDEM TARTRATE 5 MG TAB PO SCH (22:14)
[2020-10-17] MEDS: SODIUM CHLOR 0.9% PF (SALINE LOCK) 10ML VIAL/SYR IV SCH (22:14)
[2020-10-17] MEDS: ATORVASTATIN 20 MG TAB PO SCH (22:15)
[2020-10-18] MEDS: ACCU-CHEK COMFORT CURVE STRIP VI SCH ×5 (00:13→23:54)
[2020-10-18] MEDS: LACTATED RINGER'S 1,000 ML IV SCH ×3 (02:20→16:21)
[2020-10-18 05:00] VITALS: BP 106/64
[2020-10-18] MEDS: InsuLIN REG 1unit/0.01ml Soln (100units/ml) SC SCH ×5 (06:00→23:54)
[2020-10-18] MEDS: metroNIDAZOLE 500MG/100ML 100 ML IV SCH ×3 (06:09→22:05)
[2020-10-18 07:52] LABS: Albumin 2.2 g/dL (3.4-5.0); Calcium 7.9 mg/dL (8.5-10.1); Magnesium 1.6 mg/dL (1.6-2.6); Potassium 3.2 mmol/L (3.5-5.1)
[2020-10-18 07:55] LABS: BUN/Creatinine Ratio 12.8; Bilirubin, Total 0.4 mg/dL (0.2-1.0); Phosphorus 2.4 mg/dL (2.5-4.90); Total Protein 4.8 g/dL (6.4-8.2)
[2020-10-18] MEDS ORDERED: ADENOSINE 62 MG in GIVE UN-DILUTED 0 ML IV STA (08:14)
[2020-10-18 09:00] VITALS: BP 135/63
[2020-10-18] MEDS: levoFLOXacin 250MG 50 ML IV SCH (09:05)
[2020-10-18] MEDS: ENOXAPARIN SOD 40 MG/0.4 ML SYRINGE SC SCH (09:05)
[2020-10-18] MEDS ORDERED: POTASSIUM CHL 20MEQ/100ML 100 ML IV ONE (09:45)
[2020-10-18] MEDS ORDERED: MAGNESIUM SULFATE 1GM/100ML 100 ML IV ONE (09:45)
[2020-10-18] MEDS ORDERED: PANTOPRAZOLE 40 MG/10 ML VIAL INJ IV SCH (10:00)
[2020-10-18] MEDS: SODIUM CHLOR 0.9% PF (SALINE LOCK) 10ML VIAL/SYR IV SCH ×2 (10:00→22:05)
[2020-10-18] MEDS ORDERED: POTASSIUM PHOSP 26.4MEQ(18MMOL) IN NS 100 ML IV ONE (12:00)
[2020-10-18] MEDS ORDERED: GADOTERATE MEG 10 MMOL/20ml INJ (0.5MMOL/ml) IV ONE ×2 (12:14→13:03)
[2020-10-18 12:21] VITALS: BP 148/110
[2020-10-18] MEDS ORDERED: levoFLOXacin 250MG 50 ML IV ONE (12:45)
[2020-10-18 16:23] VITALS: BP 132/57
[2020-10-18] MEDS ORDERED: TPN PER PHARMACY IV NR ×9 (20:00)
[2020-10-18 22:00] VITALS: BP 163/74
[2020-10-18] MEDS: ATORVASTATIN 20 MG TAB PO SCH (22:06)
[2020-10-18] MEDS: ZOLPIDEM TARTRATE 5 MG TAB PO SCH (22:06)
[2020-10-19] MEDS: ZOLPIDEM TARTRATE 5 MG TAB PO SCH ×2 (01:22→22:09)
[2020-10-19 05:05] VITALS: BP 136/71
[2020-10-19 05:45] LABS: Albumin 2.3 g/dL (3.4-5.0); Calcium 7.9 mg/dL (8.5-10.1); Magnesium 1.6 mg/dL (1.6-2.6); Potassium 3.5 mmol/L (3.5-5.1)
[2020-10-19 05:50] LABS: Bilirubin, Total 0.2 mg/dL (0.2-1.0); Phosphorus 3.3 mg/dL (2.5-4.90); Total Protein 4.9 g/dL (6.4-8.2)
[2020-10-19] MEDS: InsuLIN REG 1unit/0.01ml Soln (100units/ml) SC SCH ×3 (06:00→17:18)
[2020-10-19] MEDS: ACCU-CHEK COMFORT CURVE STRIP VI SCH ×3 (06:29→17:18)
[2020-10-19] MEDS: metroNIDAZOLE 500MG/100ML 100 ML IV SCH ×3 (06:29→22:09)
[2020-10-19 09:00] VITALS: BP 137/68
[2020-10-19] MEDS: MAGNESIUM SULFATE 1GM/100ML 100 ML IV SCH ×2 (09:10→10:12)
[2020-10-19] MEDS: ESOMEPRAZOLE 40 MG/5ml VIAL INJ IV SCH (09:10)
[2020-10-19] MEDS: ENOXAPARIN SOD 40 MG/0.4 ML SYRINGE SC SCH (09:10)
[2020-10-19] MEDS: SODIUM CHLOR 0.9% PF (SALINE LOCK) 10ML VIAL/SYR IV SCH ×2 (09:10→22:09)
[2020-10-19] MEDS ORDERED: levoFLOXacin 500MG 100 ML IV SCH (10:00)
[2020-10-19] MEDS ORDERED: POTASSIUM CHL 20MEQ/100ML 100 ML IV ONE (11:00)
[2020-10-19] MEDS ORDERED: cefTRIAXone 1GM/50ML D5W 50 ML IV ONE (12:45)
[2020-10-19 12:48] VITALS: BP 148/92
[2020-10-19] MEDS: LACTATED RINGER'S 1,000 ML IV SCH (15:45)
[2020-10-19 16:53] VITALS: BP 154/79
[2020-10-19 17:05] VITALS: BP 142/76
[2020-10-19] MEDS ORDERED: TPN PER PHARMACY IV NR ×9 (20:00)
[2020-10-19 22:05] VITALS: BP 142/85
[2020-10-19] MEDS: ATORVASTATIN 20 MG TAB PO SCH (22:09)
[2020-10-19] MEDS: ONDANSETRON HCL 4 MG/2 ML VIAL IV PRN (23:40)
[2020-10-20] MEDS: ACCU-CHEK COMFORT CURVE STRIP VI SCH ×5 (00:22→23:46)
[2020-10-20] MEDS: LACTATED RINGER'S 1,000 ML IV SCH ×2 (04:15→16:45)
[2020-10-20 05:00] VITALS: BP 121/81
[2020-10-20] MEDS: InsuLIN REG 1unit/0.01ml Soln (100units/ml) SC SCH ×5 (05:47→23:48)
[2020-10-20] MEDS: metroNIDAZOLE 500MG/100ML 100 ML IV SCH ×3 (05:51→21:48)
[2020-10-20 07:19] LABS: Potassium 3.6 mmol/L (3.5-5.1)
[2020-10-20 07:28] LABS: Albumin 2.5 g/dL (3.4-5.0); BUN/Creatinine Ratio 13.2; Bilirubin, Total 0.3 mg/dL (0.2-1.0); Calcium 8.1 mg/dL (8.5-10.1); Magnesium 2.2 mg/dL (1.6-2.6); Phosphorus 3.7 mg/dL (2.5-4.90); Total Protein 5.1 g/dL (6.4-8.2)
[2020-10-20 08:48] VITALS: BP 120/81
[2020-10-20] MEDS: cefTRIAXone 1GM/50ML D5W 50 ML IV SCH (09:15)
[2020-10-20] MEDS: ENOXAPARIN SOD 40 MG/0.4 ML SYRINGE SC SCH (10:32)
[2020-10-20] MEDS: SODIUM CHLOR 0.9% PF (SALINE LOCK) 10ML VIAL/SYR IV SCH ×2 (10:32→21:48)
[2020-10-20] MEDS: ESOMEPRAZOLE 40 MG/5ml VIAL INJ IV SCH (10:33)
[2020-10-20 13:00] VITALS: BP 148/82
[2020-10-20 17:00] VITALS: BP 143/110
[2020-10-20] MEDS ORDERED: TPN PER PHARMACY IV NR ×9 (20:00)
[2020-10-20] MEDS: ZOLPIDEM TARTRATE 5 MG TAB PO SCH (21:48)
[2020-10-20] MEDS: ATORVASTATIN 20 MG TAB PO SCH (21:49)
[2020-10-20 22:00] VITALS: BP 134/83
[2020-10-21 05:00] VITALS: BP 114/78
[2020-10-21] MEDS: LACTATED RINGER'S 1,000 ML IV SCH ×2 (05:13→17:44)
[2020-10-21] MEDS: ACCU-CHEK COMFORT CURVE STRIP VI SCH ×4 (05:48→23:51)
[2020-10-21] MEDS: metroNIDAZOLE 500MG/100ML 100 ML IV SCH ×3 (05:49→22:10)
[2020-10-21] MEDS: InsuLIN REG 1unit/0.01ml Soln (100units/ml) SC SCH ×4 (05:55→23:52)
[2020-10-21 07:25] LABS: Potassium 4.2 mmol/L (3.5-5.1)
[2020-10-21 07:30] LABS: Albumin 2.6 g/dL (3.4-5.0); BUN/Creatinine Ratio 13.8; Bilirubin, Total 0.2 mg/dL (0.2-1.0); Calcium 8.3 mg/dL (8.5-10.1); Magnesium 2.4 mg/dL (1.6-2.6); Phosphorus 3.7 mg/dL (2.5-4.90); Total Protein 5.1 g/dL (6.4-8.2)
[2020-10-21] MEDS: cefTRIAXone 1GM/50ML D5W 50 ML IV SCH (08:57)
[2020-10-21] MEDS: ENOXAPARIN SOD 40 MG/0.4 ML SYRINGE SC SCH (08:58)
[2020-10-21] MEDS: SODIUM CHLOR 0.9% PF (SALINE LOCK) 10ML VIAL/SYR IV SCH ×2 (08:58→22:10)
[2020-10-21] MEDS: ESOMEPRAZOLE 40 MG/5ml VIAL INJ IV SCH (08:58)
[2020-10-21 09:00] VITALS: BP 121/64
[2020-10-21 13:00] VITALS: BP 127/74
[2020-10-21 17:00] VITALS: BP 148/88
[2020-10-21] MEDS ORDERED: TPN PER PHARMACY IV NR ×10 (20:00)
[2020-10-21 22:00] VITALS: BP 132/87
[2020-10-21] MEDS: ZOLPIDEM TARTRATE 5 MG TAB PO SCH (22:10)
[2020-10-21] MEDS: ATORVASTATIN 20 MG TAB PO SCH (22:10)
[2020-10-22 05:00] VITALS: BP 100/68
[2020-10-22] MEDS: ACCU-CHEK COMFORT CURVE STRIP VI SCH ×3 (05:50→18:00)
[2020-10-22] MEDS: metroNIDAZOLE 500MG/100ML 100 ML IV SCH ×3 (05:50→22:16)
[2020-10-22] MEDS: InsuLIN REG 1unit/0.01ml Soln (100units/ml) SC SCH ×3 (05:54→18:00)
[2020-10-22] MEDS: LACTATED RINGER'S 1,000 ML IV SCH (06:15)
[2020-10-22 07:07] LABS: Albumin 2.6 g/dL (3.4-5.0); Calcium 8.3 mg/dL (8.5-10.1); Potassium 4.1 mmol/L (3.5-5.1)
[2020-10-22 07:13] LABS: BUN/Creatinine Ratio 14.8; Bilirubin, Total 0.2 mg/dL (0.2-1.0); Magnesium 2.5 mg/dL (1.6-2.6); Phosphorus 4.2 mg/dL (2.5-4.90)
[2020-10-22 08:59] VITALS: BP 137/79
[2020-10-22] MEDS: ESOMEPRAZOLE 40 MG/5ml VIAL INJ IV SCH (09:45)
[2020-10-22] MEDS: SODIUM CHLOR 0.9% PF (SALINE LOCK) 10ML VIAL/SYR IV SCH ×2 (09:45→22:17)
[2020-10-22] MEDS: ENOXAPARIN SOD 40 MG/0.4 ML SYRINGE SC SCH (09:45)
[2020-10-22] MEDS: cefTRIAXone 1GM/50ML D5W 50 ML IV SCH (09:45)
[2020-10-22 12:58] VITALS: BP 135/79
[2020-10-22] MEDS ORDERED: GOLYTELY 4L KIT PO ONE (14:00)
[2020-10-22 16:53] VITALS: BP 137/84
[2020-10-22] MEDS ORDERED: TPN PER PHARMACY IV NR ×10 (20:00)
[2020-10-22 22:00] VITALS: BP 125/80
[2020-10-22] MEDS: ZOLPIDEM TARTRATE 5 MG TAB PO SCH (22:17)
[2020-10-22] MEDS: ATORVASTATIN 20 MG TAB PO SCH (22:17)
[2020-10-23] MEDS: InsuLIN REG 1unit/0.01ml Soln (100units/ml) SC SCH ×5 (00:01→23:40)
[2020-10-23 05:00] VITALS: BP 113/63
[2020-10-23] MEDS: metroNIDAZOLE 500MG/100ML 100 ML IV SCH ×3 (05:33→22:05)
[2020-10-23] MEDS: ACCU-CHEK COMFORT CURVE STRIP VI SCH ×5 (05:33→23:38)
[2020-10-23 06:14] LABS: Albumin 2.7 g/dL (3.4-5.0); Calcium 8.3 mg/dL (8.5-10.1); Magnesium 2.2 mg/dL (1.6-2.6); Potassium 3.7 mmol/L (3.5-5.1)
[2020-10-23 06:20] LABS: BUN/Creatinine Ratio 18.6; Bilirubin, Total 0.2 mg/dL (0.2-1.0); Phosphorus 3.5 mg/dL (2.5-4.90); Total Protein 5.3 g/dL (6.4-8.2)
[2020-10-23 08:56] VITALS: BP 109/63
[2020-10-23] MEDS: cefTRIAXone 1GM/50ML D5W 50 ML IV SCH (09:44)
[2020-10-23] MEDS: SODIUM CHLOR 0.9% PF (SALINE LOCK) 10ML VIAL/SYR IV SCH ×2 (10:18→22:05)
[2020-10-23] MEDS: ESOMEPRAZOLE 40 MG/5ml VIAL INJ IV SCH (10:18)
[2020-10-23 13:00] VITALS: BP 136/64
[2020-10-23] MEDS ORDERED: GOLYTELY 4L KIT PO ONE (14:00)
[2020-10-23 17:00] VITALS: BP 148/80
[2020-10-23] MEDS ORDERED: TPN PER PHARMACY IV NR ×10 (20:00)
[2020-10-23 22:00] VITALS: BP 156/90
[2020-10-23] MEDS: ATORVASTATIN 20 MG TAB PO SCH (22:03)
[2020-10-23] MEDS: ZOLPIDEM TARTRATE 5 MG TAB PO SCH (23:15)
[2020-10-24] VITALS (33 sets, daily range): BP systolic 63–164; BP diastolic 45–110
[2020-10-24] MEDS: metroNIDAZOLE 500MG/100ML 100 ML IV SCH ×4 (05:24→21:05)
[2020-10-24] MEDS: ACCU-CHEK COMFORT CURVE STRIP VI SCH ×4 (05:54→23:49)
[2020-10-24] MEDS: InsuLIN REG 1unit/0.01ml Soln (100units/ml) SC SCH ×4 (05:54→23:53)
[2020-10-24 06:14] LABS: Basophils # (auto) 0.1 10 ^3/uL (0-0.2); Basophils % (auto) 0.8 % (0.0-2.0); Eosinophils # (auto) 0.2 10 ^3/uL (0-0.8); Eosinophils % (auto) 3.5 % (0.0-7.0); Hematocrit 38.6 % (36.0-46.0); Hemoglobin 13.1 g/dL (12.2-16.2); Lymphocytes # (auto) 1.9 10 ^3/uL (0.4-5.4); Lymphocytes % (auto) 27.1 % (10.0-50.0); Mean Corpuscular Hemoglobin 30.5 pg (28.0-32.0); Mean Corpuscular Hgb Conc. 33.8 g/dL (32.0-36.0); Mean Corpuscular Volume 90.2 fL (80.0-100.0); Monocytes # (auto) 0.7 10 ^3/uL (0-1.3); Monocytes % (auto) 10.5 % (0.0-12.0); Neutrophils # (auto) 4.1 10 ^3/uL (1.6-8.6); Neutrophils % (auto) 58.1 % (37.0-80.0); Nucleated Red Blood Cells % 0.1 %; Platelet Count (auto) 160 10^3/uL (140-450); Red Blood Cells 4.28 10^6/uL (4.0-5.20); Red Cell Distribution Width 13.9 % (11.8-14.3); White Blood Cell 7.1 10^3/uL (4.4-10.8)
[2020-10-24 06:32] LABS: INR 1.06 (0.9-1.15); Partial Thromboplastin Time 26.9 sec (23.0-31.2)
[2020-10-24 06:34] LABS: Potassium 3.6 mmol/L (3.5-5.1)
[2020-10-24 06:48] LABS: Albumin 2.6 g/dL (3.4-5.0); Bilirubin, Total 0.2 mg/dL (0.2-1.0); Calcium 8.3 mg/dL (8.5-10.1); Magnesium 2.2 mg/dL (1.6-2.6); Phosphorus 3.5 mg/dL (2.5-4.90)
[2020-10-24] MEDS: ESOMEPRAZOLE 40 MG/5ml VIAL INJ IV SCH (09:35)
[2020-10-24] MEDS: cefTRIAXone 1GM/50ML D5W 50 ML IV SCH (09:35)
[2020-10-24] MEDS: SODIUM CHLOR 0.9% PF (SALINE LOCK) 10ML VIAL/SYR IV SCH ×2 (09:35→21:06)
[2020-10-24] MEDS ORDERED: MIDAZOLAM HCL 1MG/1ML-2 ML VIAL ONE ×2 (13:44→16:00)
[2020-10-24] MEDS ORDERED: fentaNYL CITRATE 100 MCG/2 ML VL ONE (13:44)
[2020-10-24] MEDS ORDERED: HYDROmorphone HCL 2 MG/ML VL ONE ×2 (13:44→16:27)
[2020-10-24] MEDS ORDERED: ROCURONIUM 10MG/ML 10ML VIAL IV ONE (13:44)
[2020-10-24] MEDS ORDERED: GLYCOPYRROLATE 0.2 MG/ML 1ML VIAL ONE (13:45)
[2020-10-24] MEDS ORDERED: ePHEDrine SULFATE 50 MG/ML AMP ONE (13:45)
[2020-10-24] MEDS ORDERED: DexAMETHasone SOD PHOS 10MG/1ML VIAL INJ ONE (13:45)
[2020-10-24] MEDS ORDERED: LIDOCAINE 2% (LOCAL ANESTH.) PF 5ml SDV ONE (13:45)
[2020-10-24] MEDS ORDERED: ONDANSETRON HCL 4 MG/2 ML VIAL ONE (13:45)
[2020-10-24] MEDS ORDERED: ETOMIDATE (2MG/ML) 20ML VIAL IV ONE (13:45)
[2020-10-24] MEDS ORDERED: PHENYLEPHRINE HCL 10 MG/ML VL ONE (13:45)
[2020-10-24] MEDS ORDERED: SUCCINYLCHOLINE CHLORIDE 20 MG/ML 10ML VIAL IV ONE (13:59)
[2020-10-24] MEDS ORDERED: fentaNYL CITRATE 5 ML ONE (14:36)
[2020-10-24] MEDS ORDERED: CALCIUM CHLOR(10%) 100MG/ML 10ML SYRINGE IV ONE (16:07)
[2020-10-24] MEDS: MIDAZOLAM DRIP 50 mg/50mL 50 ML IV SCH (18:00)
[2020-10-24] MEDS: fentaNYL Drip 2500mCg/250mlNS 250 ML IV SCH (18:00)
[2020-10-24] MEDS: PROPOFOL 100 ML IV SCH (18:00)
[2020-10-24] MEDS: NOREPINEPHRINE 8 MG/250ML KIT 250 ML IV SCH (18:12)
[2020-10-24] MEDS ORDERED: TPN PER PHARMACY IV NR ×11 (20:00)
[2020-10-24] MEDS: ZOLPIDEM TARTRATE 5 MG TAB PO SCH (21:06)
[2020-10-24] MEDS: ATORVASTATIN 20 MG TAB PO SCH (21:06)
[2020-10-25] VITALS (86 sets, daily range): BP systolic 86–147; BP diastolic 36–90
[2020-10-25 01:07] LABS: Hematocrit 39.5 % (36.0-46.0); Mean Corpuscular Hemoglobin 30.5 pg (28.0-32.0); Mean Corpuscular Hgb Conc. 33.1 g/dL (32.0-36.0); Mean Corpuscular Volume 92.2 fL (80.0-100.0); Platelet Count (auto) 190 10^3/uL (140-450); Red Blood Cells 4.28 10^6/uL (4.0-5.20); Red Cell Distribution Width 14.3 % (11.8-14.3)
[2020-10-25 01:09] LABS: White Blood Cell 30.9 10^3/uL (4.4-10.8)
[2020-10-25 01:12] LABS: Basophils % (manual) 0 (0.0-2.0); Blast Cells 0; Eosinophils % (manual) 0 (0-7); Myelocytes % 0; Promyelocytes % 0; Reactive Lymphocytes 0
[2020-10-25 01:18] LABS: BUN/Creatinine Ratio 20.1; Calcium 7.9 mg/dL (8.5-10.1); Potassium 4.7 mmol/L (3.5-5.1)
[2020-10-25] MEDS ORDERED: VANCOMYCIN PER PHARMACY 0 MG IV SCH (01:45)
[2020-10-25 01:46] LABS: Band Neutrophils % (manual) 16; Lymphocytes % (manual) 2 (10.0-50.0); Metamyelocytes % 2; Monocytes % (manual) 7 (0-12)
[2020-10-25] MEDS ORDERED: VANCOMYCIN 1GM/250ML 250 ML IV ONE (02:00)
[2020-10-25 03:57] LABS: Hematocrit 39.2 % (36.0-46.0); Hemoglobin 12.8 g/dL (12.2-16.2); Mean Corpuscular Hemoglobin 30.2 pg (28.0-32.0); Mean Corpuscular Hgb Conc. 32.6 g/dL (32.0-36.0); Mean Corpuscular Volume 92.6 fL (80.0-100.0); Platelet Count (auto) 201 10^3/uL (140-450); Red Blood Cells 4.24 10^6/uL (4.0-5.20); Red Cell Distribution Width 14.3 % (11.8-14.3); White Blood Cell 26.5 10^3/uL (4.4-10.8)
[2020-10-25 04:21] LABS: Potassium 5.2 mmol/L (3.5-5.1)
[2020-10-25 04:22] LABS: Lactic Acid w/Reflex 3.5 mmol/L (0.4-2.0)
[2020-10-25 04:24] LABS: Basophils % (manual) 0 (0.0-2.0); Blast Cells 0; Eosinophils % (manual) 0 (0-7); Myelocytes % 0; Promyelocytes % 0; Reactive Lymphocytes 0
[2020-10-25 04:28] LABS: Albumin 2.4 g/dL (3.4-5.0); BUN/Creatinine Ratio 19.6; Bilirubin, Total 0.4 mg/dL (0.2-1.0); Magnesium 1.7 mg/dL (1.6-2.6); Total Protein 4.2 g/dL (6.4-8.2)
[2020-10-25 05:10] LABS: Band Neutrophils % (manual) 14; Lymphocytes % (manual) 6 (10.0-50.0); Metamyelocytes % 2; Monocytes % (manual) 10 (0-12)
[2020-10-25] MEDS: metroNIDAZOLE 500MG/100ML 100 ML IV SCH (05:14)
[2020-10-25] MEDS: InsuLIN REG 1unit/0.01ml Soln (100units/ml) SC SCH ×3 (05:32→18:00)
[2020-10-25] MEDS: ACCU-CHEK COMFORT CURVE STRIP VI SCH ×3 (05:33→18:04)
[2020-10-25] MEDS ORDERED: SOD CHL 0.45% 1,000 ML IV ONE (07:00)
[2020-10-25] MEDS: cefTRIAXone 1GM/50ML D5W 50 ML IV SCH (08:45)
[2020-10-25] MEDS ORDERED: SOD CHL 0.45% 1,000 ML IV SCH (09:15)
[2020-10-25] MEDS ORDERED: CLINIMIX PER PHARMACY 0 ML IV SCH (09:15)
[2020-10-25] MEDS: SODIUM CHLOR 0.9% PF (SALINE LOCK) 10ML VIAL/SYR IV SCH ×2 (09:50→21:30)
[2020-10-25] MEDS: ESOMEPRAZOLE 40 MG/5ml VIAL INJ IV SCH (09:50)
[2020-10-25] MEDS: LINEZOLID 600MG/300ML 300 ML IV SCH ×2 (10:00→21:30)
[2020-10-25] MEDS: MEROPENEM 1GM IVPB 100 ML IV SCH ×2 (10:06→21:30)
[2020-10-25] MEDS ORDERED: AMINO ACID INFUSION IN D10W 1,000 ML IV NR (10:30)
[2020-10-25] MEDS: MAGNESIUM SULFATE 1GM/100ML 100 ML IV SCH ×2 (12:27→14:37)
[2020-10-25] MEDS: fentaNYL Drip 2500mCg/250mlNS 250 ML IV SCH (12:31)
[2020-10-25] MEDS: MIDAZOLAM DRIP 50 mg/50mL 50 ML IV SCH (12:31)
[2020-10-25] MEDS: PROPOFOL 100 ML IV SCH (12:31)
[2020-10-25 13:28] LABS: BUN/Creatinine Ratio 25.6; Calcium 7.7 mg/dL (8.5-10.1); Magnesium 1.9 mg/dL (1.6-2.6)
[2020-10-25] MEDS: MORPHINE SULF INJ 2 MG/ML SYRINGE 1ML IV PRN ×3 (14:38→21:32)
[2020-10-25] MEDS: NOREPINEPHRINE 8 MG/250ML KIT 250 ML IV SCH (16:07)
[2020-10-25] MEDS ORDERED: TPN PER PHARMACY IV NR ×10 (20:00)
[2020-10-25] MEDS: ATORVASTATIN 20 MG TAB PO SCH (21:31)
[2020-10-25] MEDS: ZOLPIDEM TARTRATE 5 MG TAB PO SCH (21:33)
[2020-10-26] VITALS (55 sets, daily range): BP systolic 89–132; BP diastolic 39–66
[2020-10-26] MEDS: MORPHINE SULF INJ 2 MG/ML SYRINGE 1ML IV PRN (02:24)
[2020-10-26 04:06] LABS: Basophils # (auto) 0 10 ^3/uL (0-0.2); Basophils % (auto) 0.1 % (0.0-2.0); Eosinophils # (auto) 0.1 10 ^3/uL (0-0.8); Eosinophils % (auto) 0.8 % (0.0-7.0); Hematocrit 29.6 % (36.0-46.0); Lymphocytes # (auto) 1.8 10 ^3/uL (0.4-5.4); Lymphocytes % (auto) 10.2 % (10.0-50.0); Mean Corpuscular Hemoglobin 30.8 pg (28.0-32.0); Mean Corpuscular Hgb Conc. 33.7 g/dL (32.0-36.0); Mean Corpuscular Volume 91.4 fL (80.0-100.0); Monocytes # (auto) 1.8 10 ^3/uL (0-1.3); Monocytes % (auto) 10.1 % (0.0-12.0); Neutrophils % (auto) 78.8 % (37.0-80.0); Platelet Count (auto) 123 10^3/uL (140-450); Red Blood Cells 3.24 10^6/uL (4.0-5.20); Red Cell Distribution Width 14.1 % (11.8-14.3); White Blood Cell 17.7 10^3/uL (4.4-10.8)
[2020-10-26 04:27] LABS: Albumin 1.9 g/dL (3.4-5.0); BUN/Creatinine Ratio 22.7; Bilirubin, Total 0.3 mg/dL (0.2-1.0); Calcium 7.4 mg/dL (8.5-10.1); Magnesium 2.2 mg/dL (1.6-2.6); Phosphorus 2.7 mg/dL (2.5-4.90); Total Protein 4.1 g/dL (6.4-8.2)
[2020-10-26] MEDS: ACCU-CHEK COMFORT CURVE STRIP VI SCH ×3 (05:49→11:54)
[2020-10-26] MEDS: InsuLIN REG 1unit/0.01ml Soln (100units/ml) SC SCH ×4 (05:50→19:00)
[2020-10-26] MEDS: LINEZOLID 600MG/300ML 300 ML IV SCH ×2 (11:26→22:30)
[2020-10-26] MEDS: MEROPENEM 1GM IVPB 100 ML IV SCH ×2 (11:31→22:29)
[2020-10-26] MEDS: ESOMEPRAZOLE 40 MG/5ml VIAL INJ IV SCH (11:32)
[2020-10-26] MEDS: SODIUM CHLOR 0.9% PF (SALINE LOCK) 10ML VIAL/SYR IV SCH ×2 (11:32→22:30)
[2020-10-26] MEDS ORDERED: TPN PER PHARMACY IV NR ×11 (20:00)
[2020-10-26] MEDS: ATORVASTATIN 20 MG TAB PO SCH (22:29)
[2020-10-26] MEDS: ZOLPIDEM TARTRATE 5 MG TAB PO SCH (22:29)
[2020-10-27] MEDS: ACCU-CHEK COMFORT CURVE STRIP VI SCH ×4 (00:05→17:46)
[2020-10-27] MEDS: InsuLIN REG 1unit/0.01ml Soln (100units/ml) SC SCH ×4 (00:13→17:46)
[2020-10-27 05:31] VITALS: BP 124/57
[2020-10-27 08:00] LABS: Basophils # (auto) 0 10 ^3/uL (0-0.2); Basophils % (auto) 0.2 % (0.0-2.0); Eosinophils # (auto) 0.2 10 ^3/uL (0-0.8); Eosinophils % (auto) 1.3 % (0.0-7.0); Hematocrit 26.6 % (36.0-46.0); Hemoglobin 9.1 g/dL (12.2-16.2); Lymphocytes # (auto) 1.5 10 ^3/uL (0.4-5.4); Lymphocytes % (auto) 10.4 % (10.0-50.0); Mean Corpuscular Hemoglobin 31.5 pg (28.0-32.0); Mean Corpuscular Hgb Conc. 34.3 g/dL (32.0-36.0); Mean Corpuscular Volume 91.6 fL (80.0-100.0); Monocytes # (auto) 1.2 10 ^3/uL (0-1.3); Monocytes % (auto) 8.2 % (0.0-12.0); Neutrophils # (auto) 11.7 10 ^3/uL (1.6-8.6); Neutrophils % (auto) 79.9 % (37.0-80.0); Nucleated Red Blood Cells % 0.1 %; Platelet Count (auto) 116 10^3/uL (140-450); White Blood Cell 14.7 10^3/uL (4.4-10.8)
[2020-10-27 08:33] LABS: Albumin 1.9 g/dL (3.4-5.0); Calcium 7.4 mg/dL (8.5-10.1); Magnesium 2.3 mg/dL (1.6-2.6); Potassium 3.5 mmol/L (3.5-5.1)
[2020-10-27 08:37] LABS: BUN/Creatinine Ratio 23.6; Bilirubin, Total 0.3 mg/dL (0.2-1.0); Phosphorus 2.6 mg/dL (2.5-4.90); Pre Albumin 13.5 mg/dL (20.0-40.0); Total Protein 4.4 g/dL (6.4-8.2)
[2020-10-27 09:00] VITALS: BP 115/65
[2020-10-27] MEDS: SODIUM CHLOR 0.9% PF (SALINE LOCK) 10ML VIAL/SYR IV SCH ×2 (10:10→21:53)
[2020-10-27] MEDS: MEROPENEM 1GM IVPB 100 ML IV SCH ×2 (10:10→21:53)
[2020-10-27] MEDS: LINEZOLID 600MG/300ML 300 ML IV SCH ×2 (10:11→21:53)
[2020-10-27] MEDS: ESOMEPRAZOLE 40 MG/5ml VIAL INJ IV SCH (10:31)
[2020-10-27] MEDS: MORPHINE SULF INJ 2 MG/ML SYRINGE 1ML IV PRN ×2 (11:13→20:30)
[2020-10-27 12:56] VITALS: BP 126/74
[2020-10-27 16:42] VITALS: BP 121/68
[2020-10-27] MEDS ORDERED: TPN PER PHARMACY IV NR ×12 (20:00)
[2020-10-27 21:01] VITALS: BP 143/56
[2020-10-27] MEDS: TEMAZEPAM 15 MG CAP PO PRN (21:54)
[2020-10-27] MEDS: ATORVASTATIN 20 MG TAB PO SCH (21:54)
[2020-10-28] MEDS: ACCU-CHEK COMFORT CURVE STRIP VI SCH ×5 (00:13→23:27)
[2020-10-28] MEDS: InsuLIN REG 1unit/0.01ml Soln (100units/ml) SC SCH ×5 (00:20→23:28)
[2020-10-28] MEDS: MORPHINE SULF INJ 2 MG/ML SYRINGE 1ML IV PRN ×2 (02:36→15:56)
[2020-10-28 05:06] VITALS: BP 120/70
[2020-10-28 05:36] LABS: Basophils # (auto) 0 10 ^3/uL (0-0.2); Basophils % (auto) 0.2 % (0.0-2.0); Eosinophils # (auto) 0.3 10 ^3/uL (0-0.8); Eosinophils % (auto) 2.3 % (0.0-7.0); Hematocrit 30.1 % (36.0-46.0); Hemoglobin 10.1 g/dL (12.2-16.2); Lymphocytes # (auto) 2.1 10 ^3/uL (0.4-5.4); Lymphocytes % (auto) 18.4 % (10.0-50.0); Mean Corpuscular Hemoglobin 30.6 pg (28.0-32.0); Mean Corpuscular Hgb Conc. 33.5 g/dL (32.0-36.0); Mean Corpuscular Volume 91.3 fL (80.0-100.0); Monocytes # (auto) 1.1 10 ^3/uL (0-1.3); Monocytes % (auto) 9.9 % (0.0-12.0); Neutrophils % (auto) 69.2 % (37.0-80.0); Nucleated Red Blood Cells % 0.1 %; Platelet Count (auto) 143 10^3/uL (140-450); Red Blood Cells 3.29 10^6/uL (4.0-5.20); Red Cell Distribution Width 14.2 % (11.8-14.3); White Blood Cell 11.6 10^3/uL (4.4-10.8)
[2020-10-28 06:01] LABS: Albumin 1.8 g/dL (3.4-5.0); Calcium 7.2 mg/dL (8.5-10.1); Magnesium 2.2 mg/dL (1.6-2.6); Potassium 3.2 mmol/L (3.5-5.1)
[2020-10-28 06:05] LABS: BUN/Creatinine Ratio 24.7; Bilirubin, Total 0.5 mg/dL (0.2-1.0); Phosphorus 3.6 mg/dL (2.5-4.90); Total Protein 4.4 g/dL (6.4-8.2)
[2020-10-28 09:00] VITALS: BP 107/57
[2020-10-28] MEDS: MEROPENEM 1GM IVPB 100 ML IV SCH ×2 (09:48→21:37)
[2020-10-28] MEDS: ESOMEPRAZOLE 40 MG/5ml VIAL INJ IV SCH (09:48)
[2020-10-28] MEDS: LINEZOLID 600MG/300ML 300 ML IV SCH ×2 (09:49→21:37)
[2020-10-28] MEDS: SODIUM CHLOR 0.9% PF (SALINE LOCK) 10ML VIAL/SYR IV SCH ×2 (09:49→21:37)
[2020-10-28] MEDS ORDERED: POTASSIUM CHL 20MEQ/100ML 100 ML IV ONE (10:15)
[2020-10-28] MEDS ORDERED: ENOXAPARIN SOD 40 MG/0.4 ML SYRINGE SC ONE (12:00)
[2020-10-28 13:00] VITALS: BP_SYST 117; BP_SYST 121; BP_DIAS 62; BP_DIAS 66
[2020-10-28 17:00] VITALS: BP 121/66
[2020-10-28] MEDS ORDERED: TPN PER PHARMACY IV NR ×12 (20:00)
[2020-10-28] MEDS: ATORVASTATIN 20 MG TAB PO SCH (21:37)
[2020-10-28 22:00] VITALS: BP 124/66
[2020-10-28] MEDS: TEMAZEPAM 15 MG CAP PO PRN (23:28)
[2020-10-29] MEDS: MORPHINE SULF INJ 2 MG/ML SYRINGE 1ML IV PRN ×4 (01:33→16:20)
[2020-10-29 05:00] VITALS: BP 111/61
[2020-10-29] MEDS: ACCU-CHEK COMFORT CURVE STRIP VI SCH ×3 (06:12→18:33)
[2020-10-29] MEDS: InsuLIN REG 1unit/0.01ml Soln (100units/ml) SC SCH ×3 (06:13→18:33)
[2020-10-29 06:42] LABS: Basophils # (auto) 0 10 ^3/uL (0-0.2); Basophils % (auto) 0.3 % (0.0-2.0); Eosinophils # (auto) 0.2 10 ^3/uL (0-0.8); Eosinophils % (auto) 2.2 % (0.0-7.0); Hematocrit 31.2 % (36.0-46.0); Hemoglobin 10.5 g/dL (12.2-16.2); Lymphocytes # (auto) 1.8 10 ^3/uL (0.4-5.4); Lymphocytes % (auto) 17.4 % (10.0-50.0); Mean Corpuscular Hemoglobin 30.9 pg (28.0-32.0); Mean Corpuscular Hgb Conc. 33.7 g/dL (32.0-36.0); Mean Corpuscular Volume 91.8 fL (80.0-100.0); Monocytes # (auto) 1.1 10 ^3/uL (0-1.3); Monocytes % (auto) 10.1 % (0.0-12.0); Neutrophils # (auto) 7.3 10 ^3/uL (1.6-8.6); Platelet Count (auto) 174 10^3/uL (140-450); Red Cell Distribution Width 14.2 % (11.8-14.3); White Blood Cell 10.4 10^3/uL (4.4-10.8)
[2020-10-29 07:01] LABS: Albumin 1.7 g/dL (3.4-5.0); Calcium 7.6 mg/dL (8.5-10.1); Magnesium 2.2 mg/dL (1.6-2.6); Potassium 3.6 mmol/L (3.5-5.1)
[2020-10-29 07:04] LABS: BUN/Creatinine Ratio 27.3; Bilirubin, Total 0.5 mg/dL (0.2-1.0); Phosphorus 3.5 mg/dL (2.5-4.90); Total Protein 4.6 g/dL (6.4-8.2)
[2020-10-29 08:00] VITALS: BP 131/74
[2020-10-29] MEDS ORDERED: GASTROGRAFIN 120 ML SOL ONE (09:10)
[2020-10-29] MEDS: LINEZOLID 600MG/300ML 300 ML IV SCH (09:50)
[2020-10-29] MEDS: SODIUM CHLOR 0.9% PF (SALINE LOCK) 10ML VIAL/SYR IV SCH ×2 (09:50→22:06)
[2020-10-29] MEDS: ENOXAPARIN SOD 40 MG/0.4 ML SYRINGE SC SCH (09:50)
[2020-10-29] MEDS: ESOMEPRAZOLE 40 MG/5ml VIAL INJ IV SCH (09:52)
[2020-10-29] MEDS ORDERED: cefTRIAXone 1GM/50ML D5W 50 ML IV ONE (10:00)
[2020-10-29 12:00] VITALS: BP 119/63
[2020-10-29] MEDS: metroNIDAZOLE 500MG/100ML 100 ML IV SCH ×2 (15:43→22:05)
[2020-10-29 16:00] VITALS: BP 128/75
[2020-10-29] MEDS: ONDANSETRON HCL 4 MG/2 ML VIAL IV PRN (16:20)
[2020-10-29] MEDS ORDERED: TPN PER PHARMACY IV NR ×13 (20:00)
[2020-10-29 22:00] VITALS: BP 151/72
[2020-10-29] MEDS: ZOLPIDEM TARTRATE 5 MG TAB PO PRN (22:05)
[2020-10-29] MEDS: ATORVASTATIN 20 MG TAB PO SCH (22:05)
[2020-10-30] MEDS: MORPHINE SULF INJ 2 MG/ML SYRINGE 1ML IV PRN ×3 (00:38→18:48)
[2020-10-30] MEDS: ACCU-CHEK COMFORT CURVE STRIP VI SCH ×5 (00:38→23:55)
[2020-10-30] MEDS: InsuLIN REG 1unit/0.01ml Soln (100units/ml) SC SCH ×5 (00:39→23:56)
[2020-10-30 05:00] VITALS: BP 128/80
[2020-10-30] MEDS: metroNIDAZOLE 500MG/100ML 100 ML IV SCH ×3 (06:34→22:05)
[2020-10-30 07:16] LABS: Basophils # (auto) 0 10 ^3/uL (0-0.2); Basophils % (auto) 0.3 % (0.0-2.0); Eosinophils # (auto) 0.3 10 ^3/uL (0-0.8); Eosinophils % (auto) 2.6 % (0.0-7.0); Hemoglobin 10.9 g/dL (12.2-16.2); Lymphocytes # (auto) 1.5 10 ^3/uL (0.4-5.4); Lymphocytes % (auto) 15.1 % (10.0-50.0); Mean Corpuscular Hemoglobin 31.3 pg (28.0-32.0); Mean Corpuscular Hgb Conc. 34.2 g/dL (32.0-36.0); Mean Corpuscular Volume 91.4 fL (80.0-100.0); Monocytes # (auto) 0.9 10 ^3/uL (0-1.3); Monocytes % (auto) 8.9 % (0.0-12.0); Neutrophils # (auto) 7.3 10 ^3/uL (1.6-8.6); Neutrophils % (auto) 73.1 % (37.0-80.0); Nucleated Red Blood Cells % 0.1 %; Platelet Count (auto) 188 10^3/uL (140-450); Red Cell Distribution Width 14.3 % (11.8-14.3); White Blood Cell 9.9 10^3/uL (4.4-10.8)
[2020-10-30 07:32] LABS: Albumin 1.7 g/dL (3.4-5.0); Calcium 7.7 mg/dL (8.5-10.1); Magnesium 2.5 mg/dL (1.6-2.6); Potassium 3.4 mmol/L (3.5-5.1)
[2020-10-30 07:35] LABS: BUN/Creatinine Ratio 32.3; Bilirubin, Total 0.3 mg/dL (0.2-1.0); Phosphorus 3.5 mg/dL (2.5-4.90)
[2020-10-30 09:07] VITALS: BP 109/59
[2020-10-30] MEDS ORDERED: POTASSIUM CHL 20MEQ/100ML 100 ML IV ONE (09:15)
[2020-10-30] MEDS: ESOMEPRAZOLE 40 MG/5ml VIAL INJ IV SCH (09:19)
[2020-10-30] MEDS: ENOXAPARIN SOD 40 MG/0.4 ML SYRINGE SC SCH (09:19)
[2020-10-30] MEDS: cefTRIAXone 1GM/50ML D5W 50 ML IV SCH (09:19)
[2020-10-30] MEDS: SODIUM CHLOR 0.9% PF (SALINE LOCK) 10ML VIAL/SYR IV SCH ×2 (09:19→22:05)
[2020-10-30 13:00] VITALS: BP 112/59
[2020-10-30] MEDS ORDERED: NEOSTIGMINE 1 MG/ML INJ (10mg/10ML VIAL) IM ONE (14:30)
[2020-10-30 17:25] VITALS: BP 117/86
[2020-10-30] MEDS ORDERED: TPN PER PHARMACY IV NR ×12 (20:00)
[2020-10-30 22:00] VITALS: BP 130/65
[2020-10-30] MEDS: METOCLOPRAMIDE HCL 5MG/ml INJ 2ml VIAL IV SCH (22:05)
[2020-10-30] MEDS: ATORVASTATIN 20 MG TAB PO SCH (22:05)
[2020-10-31] MEDS: MORPHINE SULF INJ 2 MG/ML SYRINGE 1ML IV PRN ×3 (04:14→23:12)
[2020-10-31 05:00] VITALS: BP 116/63
[2020-10-31] MEDS: metroNIDAZOLE 500MG/100ML 100 ML IV SCH ×3 (05:55→21:57)
[2020-10-31] MEDS: METOCLOPRAMIDE HCL 5MG/ml INJ 2ml VIAL IV SCH ×3 (05:55→21:57)
[2020-10-31] MEDS: ACCU-CHEK COMFORT CURVE STRIP VI SCH ×3 (05:56→17:37)
[2020-10-31] MEDS: InsuLIN REG 1unit/0.01ml Soln (100units/ml) SC SCH ×3 (05:57→17:39)
[2020-10-31 07:35] LABS: Albumin 1.7 g/dL (3.4-5.0); Calcium 7.6 mg/dL (8.5-10.1); Magnesium 2.3 mg/dL (1.6-2.6); Potassium 3.7 mmol/L (3.5-5.1)
[2020-10-31 07:38] LABS: BUN/Creatinine Ratio 34.1; Bilirubin, Total 0.4 mg/dL (0.2-1.0); Phosphorus 2.9 mg/dL (2.5-4.90); Total Protein 4.8 g/dL (6.4-8.2)
[2020-10-31 08:00] VITALS: BP 114/63
[2020-10-31] MEDS: SODIUM CHLOR 0.9% PF (SALINE LOCK) 10ML VIAL/SYR IV SCH ×2 (09:42→21:57)
[2020-10-31] MEDS: cefTRIAXone 1GM/50ML D5W 50 ML IV SCH (09:42)
[2020-10-31] MEDS: ENOXAPARIN SOD 40 MG/0.4 ML SYRINGE SC SCH (09:42)
[2020-10-31] MEDS: ESOMEPRAZOLE 40 MG/5ml VIAL INJ IV SCH (10:13)
[2020-10-31 12:00] VITALS: BP 115/64
[2020-10-31 16:00] VITALS: BP 136/83
[2020-10-31] MEDS ORDERED: TPN PER PHARMACY IV NR ×12 (20:00)
[2020-10-31 21:49] VITALS: BP 139/74
[2020-10-31] MEDS: ATORVASTATIN 20 MG TAB PO SCH (21:57)
[2020-11-01 05:50] VITALS: BP 120/60
[2020-11-01] MEDS: InsuLIN REG 1unit/0.01ml Soln (100units/ml) SC SCH ×5 (05:54→23:37)
[2020-11-01] MEDS: ACCU-CHEK COMFORT CURVE STRIP VI SCH ×5 (05:54→23:38)
[2020-11-01] MEDS: metroNIDAZOLE 500MG/100ML 100 ML IV SCH ×3 (05:54→21:24)
[2020-11-01] MEDS: METOCLOPRAMIDE HCL 5MG/ml INJ 2ml VIAL IV SCH ×3 (05:54→21:24)
[2020-11-01 06:31] LABS: Albumin 1.6 g/dL (3.4-5.0); Calcium 7.7 mg/dL (8.5-10.1); Magnesium 2.3 mg/dL (1.6-2.6); Potassium 3.8 mmol/L (3.5-5.1)
[2020-11-01 06:34] LABS: BUN/Creatinine Ratio 31.2; Bilirubin, Total 0.3 mg/dL (0.2-1.0); Phosphorus 2.9 mg/dL (2.5-4.90); Total Protein 4.6 g/dL (6.4-8.2)
[2020-11-01 08:00] VITALS: BP 130/59
[2020-11-01] MEDS: ENOXAPARIN SOD 40 MG/0.4 ML SYRINGE SC SCH (09:31)
[2020-11-01] MEDS: cefTRIAXone 1GM/50ML D5W 50 ML IV SCH (09:31)
[2020-11-01] MEDS: SODIUM CHLOR 0.9% PF (SALINE LOCK) 10ML VIAL/SYR IV SCH ×2 (09:31→21:25)
[2020-11-01] MEDS: ESOMEPRAZOLE 40 MG/5ml VIAL INJ IV SCH (09:31)
[2020-11-01] MEDS: MORPHINE SULF INJ 2 MG/ML SYRINGE 1ML IV PRN ×2 (11:40→18:13)
[2020-11-01] MEDS: ONDANSETRON HCL 4 MG/2 ML VIAL IV PRN (11:45)
[2020-11-01 12:00] VITALS: BP 143/85
[2020-11-01 16:00] VITALS: BP 121/64
[2020-11-01] MEDS ORDERED: TPN PER PHARMACY IV NR ×12 (20:00)
[2020-11-01] MEDS: ATORVASTATIN 20 MG TAB PO SCH (21:25)
[2020-11-01 22:00] VITALS: BP 125/71
[2020-11-01] MEDS: ZOLPIDEM TARTRATE 5 MG TAB PO PRN (23:36)
[2020-11-02 05:00] VITALS: BP 119/71
[2020-11-02] MEDS: METOCLOPRAMIDE HCL 5MG/ml INJ 2ml VIAL IV SCH (05:38)
[2020-11-02] MEDS: metroNIDAZOLE 500MG/100ML 100 ML IV SCH ×3 (05:38→22:34)
[2020-11-02] MEDS: ACCU-CHEK COMFORT CURVE STRIP VI SCH (05:39)
[2020-11-02] MEDS: InsuLIN REG 1unit/0.01ml Soln (100units/ml) SC SCH (05:58)
[2020-11-02 07:08] LABS: Basophils # (auto) 0 10 ^3/uL (0-0.2); Basophils % (auto) 0.4 % (0.0-2.0); Eosinophils # (auto) 0.3 10 ^3/uL (0-0.8); Eosinophils % (auto) 3.9 % (0.0-7.0); Hematocrit 28.9 % (36.0-46.0); Hemoglobin 9.7 g/dL (12.2-16.2); Lymphocytes # (auto) 1.2 10 ^3/uL (0.4-5.4); Lymphocytes % (auto) 13.8 % (10.0-50.0); Mean Corpuscular Hemoglobin 30.9 pg (28.0-32.0); Mean Corpuscular Hgb Conc. 33.6 g/dL (32.0-36.0); Mean Corpuscular Volume 92.1 fL (80.0-100.0); Monocytes % (auto) 12.3 % (0.0-12.0); Neutrophils # (auto) 5.9 10 ^3/uL (1.6-8.6); Neutrophils % (auto) 69.6 % (37.0-80.0); Platelet Count (auto) 178 10^3/uL (140-450); Red Blood Cells 3.13 10^6/uL (4.0-5.20); Red Cell Distribution Width 14.4 % (11.8-14.3); White Blood Cell 8.5 10^3/uL (4.4-10.8)
[2020-11-02 07:23] LABS: Albumin 1.6 g/dL (3.4-5.0); Calcium 7.5 mg/dL (8.5-10.1); Magnesium 2.1 mg/dL (1.6-2.6); Potassium 4.1 mmol/L (3.5-5.1)
[2020-11-02 07:26] LABS: BUN/Creatinine Ratio 31.6; Bilirubin, Total 0.2 mg/dL (0.2-1.0); Phosphorus 3.2 mg/dL (2.5-4.90); Total Protein 4.6 g/dL (6.4-8.2)
[2020-11-02] MEDS: cefTRIAXone 1GM/50ML D5W 50 ML IV SCH (09:14)
[2020-11-02] MEDS: ENOXAPARIN SOD 40 MG/0.4 ML SYRINGE SC SCH (09:16)
[2020-11-02] MEDS: ESOMEPRAZOLE 40 MG/5ml VIAL INJ IV SCH (09:16)
[2020-11-02] MEDS: SERTRALINE HCL 50 MG TAB PO SCH (09:18)
[2020-11-02] MEDS: METOPROLOL TARTRATE 25 MG TAB PO SCH ×2 (09:19→22:39)
[2020-11-02] MEDS: SODIUM CHLOR 0.9% PF (SALINE LOCK) 10ML VIAL/SYR IV SCH ×2 (09:20→22:34)
[2020-11-02 09:35] VITALS: BP 148/70
[2020-11-02] MEDS: ONDANSETRON HCL 4 MG/2 ML VIAL IV PRN (09:36)
[2020-11-02 13:00] VITALS: BP 113/62
[2020-11-02 17:00] VITALS: BP 124/32
[2020-11-02 22:00] VITALS: BP 127/74
[2020-11-02] MEDS: ATORVASTATIN 20 MG TAB PO SCH (22:34)
[2020-11-02] MEDS: ZOLPIDEM TARTRATE 5 MG TAB PO PRN (22:39)
[2020-11-03 05:00] VITALS: BP 127/68
[2020-11-03] MEDS: metroNIDAZOLE 500MG/100ML 100 ML IV SCH ×3 (05:45→22:03)
[2020-11-03 08:33] VITALS: BP 126/66
[2020-11-03] MEDS: cefTRIAXone 1GM/50ML D5W 50 ML IV SCH (08:55)
[2020-11-03] MEDS: PANTOPRAZOLE 40 MG/10 ML VIAL INJ IV SCH (08:55)
[2020-11-03] MEDS: ENOXAPARIN SOD 40 MG/0.4 ML SYRINGE SC SCH (08:55)
[2020-11-03] MEDS: SODIUM CHLOR 0.9% PF (SALINE LOCK) 10ML VIAL/SYR IV SCH ×2 (08:55→22:03)
[2020-11-03] MEDS: METOPROLOL TARTRATE 25 MG TAB PO SCH ×2 (08:56→22:04)
[2020-11-03] MEDS: SERTRALINE HCL 50 MG TAB PO SCH (08:56)
[2020-11-03] MEDS: ONDANSETRON HCL 4 MG/2 ML VIAL IV PRN (12:31)
[2020-11-03] MEDS: SUCRALFATE 1 GM/10 ML ORAL SUSP PO SCH ×3 (12:31→22:03)
[2020-11-03 13:00] VITALS: BP 126/74
[2020-11-03 15:46] LABS: BUN/Creatinine Ratio 23.1; Calcium 7.4 mg/dL (8.5-10.1); Magnesium 1.9 mg/dL (1.6-2.6); Phosphorus 2.9 mg/dL (2.5-4.90); Potassium 4.1 mmol/L (3.5-5.1)
[2020-11-03] MEDS: MAGNESIUM SULFATE 1GM/100ML 100 ML IV SCH ×4 (15:50→19:44)
[2020-11-03] MEDS: MORPHINE SULF INJ 2 MG/ML SYRINGE 1ML IV PRN (18:47)
[2020-11-03 22:00] VITALS: BP 112/55
[2020-11-03] MEDS: ATORVASTATIN 20 MG TAB PO SCH (22:03)
[2020-11-03] MEDS: ZOLPIDEM TARTRATE 5 MG TAB PO PRN (23:18)
[2020-11-04] MEDS: MORPHINE SULF INJ 2 MG/ML SYRINGE 1ML IV PRN ×2 (00:39→04:28)
[2020-11-04 05:00] VITALS: BP 130/65
[2020-11-04] MEDS: ONDANSETRON HCL 4 MG/2 ML VIAL IV PRN ×2 (05:03→20:12)
[2020-11-04] MEDS: SUCRALFATE 1 GM/10 ML ORAL SUSP PO SCH ×4 (06:03→21:30)
[2020-11-04] MEDS: metroNIDAZOLE 500MG/100ML 100 ML IV SCH ×3 (06:03→21:30)
[2020-11-04 08:10] LABS: Basophils # (auto) 0 10 ^3/uL (0-0.2); Basophils % (auto) 0.3 % (0.0-2.0); Eosinophils # (auto) 0 10 ^3/uL (0-0.8); Eosinophils % (auto) 0.3 % (0.0-7.0); Hematocrit 28.4 % (36.0-46.0); Hemoglobin 9.5 g/dL (12.2-16.2); Lymphocytes # (auto) 0.9 10 ^3/uL (0.4-5.4); Lymphocytes % (auto) 6.6 % (10.0-50.0); Mean Corpuscular Hemoglobin 30.5 pg (28.0-32.0); Mean Corpuscular Hgb Conc. 33.4 g/dL (32.0-36.0); Mean Corpuscular Volume 91.5 fL (80.0-100.0); Monocytes # (auto) 0.8 10 ^3/uL (0-1.3); Monocytes % (auto) 6.3 % (0.0-12.0); Neutrophils # (auto) 11.6 10 ^3/uL (1.6-8.6); Neutrophils % (auto) 86.5 % (37.0-80.0); Nucleated Red Blood Cells % 0.1 %; Platelet Count (auto) 250 10^3/uL (140-450); Red Cell Distribution Width 14.3 % (11.8-14.3); White Blood Cell 13.4 10^3/uL (4.4-10.8)
[2020-11-04 08:25] LABS: Potassium 3.8 mmol/L (3.5-5.1)
[2020-11-04 08:32] VITALS: BP 153/66
[2020-11-04 08:34] LABS: Albumin 1.9 g/dL (3.4-5.0); BUN/Creatinine Ratio 19.5; Bilirubin, Total 0.3 mg/dL (0.2-1.0); Calcium 7.3 mg/dL (8.5-10.1); Magnesium 2.3 mg/dL (1.6-2.6); Phosphorus 2.6 mg/dL (2.5-4.90); Total Protein 5.1 g/dL (6.4-8.2)
[2020-11-04] MEDS: SERTRALINE HCL 50 MG TAB PO SCH (09:42)
[2020-11-04] MEDS: SODIUM CHLOR 0.9% PF (SALINE LOCK) 10ML VIAL/SYR IV SCH ×2 (09:42→21:30)
[2020-11-04] MEDS: ENOXAPARIN SOD 40 MG/0.4 ML SYRINGE SC SCH (09:42)
[2020-11-04] MEDS: cefTRIAXone 1GM/50ML D5W 50 ML IV SCH (09:42)
[2020-11-04] MEDS: PANTOPRAZOLE 40 MG/10 ML VIAL INJ IV SCH (09:42)
[2020-11-04] MEDS: METOPROLOL TARTRATE 25 MG TAB PO SCH ×2 (09:43→21:29)
[2020-11-04 13:00] VITALS: BP 137/56
[2020-11-04] MEDS: METHOCARBAMOL 500 MG TAB PO PRN (13:38)
[2020-11-04 16:29] VITALS: BP 152/66
[2020-11-04] MEDS: ATORVASTATIN 20 MG TAB PO SCH (21:29)
[2020-11-04 22:39] VITALS: BP 147/82
[2020-11-05] MEDS: METHOCARBAMOL 500 MG TAB PO PRN ×2 (00:48→09:48)
[2020-11-05 05:00] VITALS: BP 136/79
[2020-11-05] MEDS: metroNIDAZOLE 500MG/100ML 100 ML IV SCH ×2 (05:43→14:00)
[2020-11-05] MEDS: SUCRALFATE 1 GM/10 ML ORAL SUSP PO SCH ×3 (06:09→17:00)
[2020-11-05 07:47] LABS: Basophils # (auto) 0 10 ^3/uL (0-0.2); Basophils % (auto) 0.2 % (0.0-2.0); Eosinophils # (auto) 0.2 10 ^3/uL (0-0.8); Eosinophils % (auto) 1.4 % (0.0-7.0); Hematocrit 29.4 % (36.0-46.0); Lymphocytes # (auto) 1.2 10 ^3/uL (0.4-5.4); Lymphocytes % (auto) 8.1 % (10.0-50.0); Mean Corpuscular Hemoglobin 30.7 pg (28.0-32.0); Mean Corpuscular Volume 90.4 fL (80.0-100.0); Monocytes # (auto) 1.1 10 ^3/uL (0-1.3); Monocytes % (auto) 7.3 % (0.0-12.0); Neutrophils # (auto) 12.6 10 ^3/uL (1.6-8.6); Platelet Count (auto) 274 10^3/uL (140-450); Red Blood Cells 3.25 10^6/uL (4.0-5.20); Red Cell Distribution Width 14.1 % (11.8-14.3); White Blood Cell 15.2 10^3/uL (4.4-10.8)
[2020-11-05 08:07] LABS: Albumin 1.9 g/dL (3.4-5.0); Calcium 7.7 mg/dL (8.5-10.1); Magnesium 1.9 mg/dL (1.6-2.6); Potassium 3.6 mmol/L (3.5-5.1)
[2020-11-05 08:10] LABS: BUN/Creatinine Ratio 16.2; Bilirubin, Total 0.4 mg/dL (0.2-1.0); Phosphorus 2.6 mg/dL (2.5-4.90)
[2020-11-05 08:13] LABS: INR 1.11 (0.9-1.15); Partial Thromboplastin Time 28.1 sec (23.0-31.2)
[2020-11-05 09:00] VITALS: BP 157/73
[2020-11-05] MEDS: METOPROLOL TARTRATE 25 MG TAB PO SCH (09:15)
[2020-11-05] MEDS: SERTRALINE HCL 50 MG TAB PO SCH (09:16)
[2020-11-05] MEDS: ENOXAPARIN SOD 40 MG/0.4 ML SYRINGE SC SCH (09:17)
[2020-11-05] MEDS: PANTOPRAZOLE 40 MG/10 ML VIAL INJ IV SCH (09:18)
[2020-11-05] MEDS: cefTRIAXone 1GM/50ML D5W 50 ML IV SCH (09:18)
[2020-11-05] MEDS: SODIUM CHLOR 0.9% PF (SALINE LOCK) 10ML VIAL/SYR IV SCH (09:35)
[2020-11-05] MEDS ORDERED: PANT40TA2 PO (12:32)
[2020-11-05] MEDS ORDERED: SERT50TA PO (12:32)
[2020-11-05] MEDS ORDERED: MET25T PO (12:32)
[2020-11-05 13:00] VITALS: BP 137/72
[2020-11-05 13:20] VITALS: BP 137/72
[2020-11-05 17:00] VITALS: BP 151/67
== END 2020-11-05 17:25 | disposition home health service (06) | DRG 853 ==
LOC: ER 14:53 → TELE 19:14 → TELE-WESTW 22:30 → ICU WEST 10-24 16:45 → TELE-WESTW 10-26 14:27
PROVIDERS: ADMIT Nurse Practitioner Acute Care; ATTEND Internal Medicine
PROC: 02HV33Z Insertion of Infusion Device into Superior Vena Cava, Percutaneous Approach (ICD-10-PCS; principal; 2020-10-17)
PROC: 0DTG0ZZ Resection of Left Large Intestine, Open Approach (ICD-10-PCS; 2020-10-24)
PROC: 5A1945Z Respiratory Ventilation, 24-96 Consecutive Hours (ICD-10-PCS; 2020-10-24)
PROC: 30233N1 Transfusion of Nonautologous Red Blood Cells into Peripheral Vein, Percutaneous Approach (ICD-10-PCS; 2020-10-24)
PROC: 0BH17EZ Insertion of Endotracheal Airway into Trachea, Via Natural or Artificial Opening (ICD-10-PCS; 2020-10-24)
DX: A41.9 Sepsis, unspecified organism (principal); N17.0 Acute kidney failure with tubular necrosis; K85.90 Acute pancreatitis without necrosis or infection, unspecified; J80 Acute respiratory distress syndrome; K57.92 Diverticulitis of intestine, part unspecified, without perforation or abscess without bleeding; R64 Cachexia; K56.0 Paralytic ileus; K52.9 Noninfective gastroenteritis and colitis, unspecified; N18.31 Chronic kidney disease, stage 3a; E86.0 Dehydration; N30.90 Cystitis, unspecified without hematuria; E11.22 Type 2 diabetes mellitus with diabetic chronic kidney disease; D64.9 Anemia, unspecified; E78.5 Hyperlipidemia, unspecified; E87.6 Hypokalemia; E88.09 Other disorders of plasma-protein metabolism, not elsewhere classified; E78.00 Pure hypercholesterolemia, unspecified; K21.9 Gastro-esophageal reflux disease without esophagitis; Z20.822 Contact with and (suspected) exposure to COVID-19; B96.20 Unspecified Escherichia coli [E. coli] as the cause of diseases classified elsewhere; F32.9 Major depressive disorder, single episode, unspecified; F41.9 Anxiety disorder, unspecified; G47.00 Insomnia, unspecified; G89.29 Other chronic pain; H91.90 Unspecified hearing loss, unspecified ear; I12.9 Hypertensive chronic kidney disease with stage 1 through stage 4 chronic kidney disease, or unspecified chronic kidney disease; I49.3 Ventricular premature depolarization; Z79.899 Other long term (current) drug therapy; Z80.0 Family history of malignant neoplasm of digestive organs; Z80.3 Family history of malignant neoplasm of breast; Z82.49 Family history of ischemic heart disease and other diseases of the circulatory system; Z87.19 Personal history of other diseases of the digestive system; Z90.49 Acquired absence of other specified parts of digestive tract; Z79.84 Long term (current) use of oral hypoglycemic drugs; Z90.710 Acquired absence of both cervix and uterus; Z88.8 Allergy status to other drugs, medicaments and biological substances
CPT/HCPCS: 36415; 36569; 36600; 71045; 74018; 74176; 74183; 74250; 78452; 80048; 80053; 81001; 82040; 82150; 82805; 82962; 83036; 83605; 83690; 83735; 83880; 83986; 84100; 84443; 84478; 84484; 85007; 85025; 85027; 85610; 85730; 86850; 86900; 86901; 86920; 87040; 87070; 87081; 87086; 87088; 87186; 87205; 87426; 93005; 93017; 93306; 94003; 96365; 96375; 97110; 97116; 97530; C9113; G0378; J0153; J0330; J0696; J1100; J1815; J1956; J2001; J2185; J2250; J2405; J3480; J3490; J7131

== ENCOUNTER → 2020-11-13 | Outpatient (CLI) | payer MEDICARE, BC ==
[~2020-11-13] MED LIST changes: -CITA10TA70 PO; -GLIM-5 PO; -LISI-275 PO; +MET25T PO; -ONDA-144 PO; +PANT40TA2 PO; +SERT50TA PO
[2020-11-13 10:49] LABS: Basophils # (auto) 0.1 10 ^3/uL (0-0.2); Basophils % (auto) 0.6 % (0.0-2.0); Eosinophils # (auto) 0.3 10 ^3/uL (0-0.8); Eosinophils % (auto) 3.6 % (0.0-7.0); Hematocrit 32.4 % (36.0-46.0); Hemoglobin 10.8 g/dL (12.2-16.2); Lymphocytes # (auto) 1.5 10 ^3/uL (0.4-5.4); Lymphocytes % (auto) 15.8 % (10.0-50.0); Mean Corpuscular Hemoglobin 29.9 pg (28.0-32.0); Mean Corpuscular Hgb Conc. 33.3 g/dL (32.0-36.0); Mean Corpuscular Volume 89.8 fL (80.0-100.0); Monocytes % (auto) 10.4 % (0.0-12.0); Neutrophils # (auto) 6.5 10 ^3/uL (1.6-8.6); Neutrophils % (auto) 69.6 % (37.0-80.0); Nucleated Red Blood Cells % 0.1 %; Platelet Count (auto) 401 10^3/uL (140-450); Red Blood Cells 3.61 10^6/uL (4.0-5.20); Red Cell Distribution Width 14.5 % (11.8-14.3); White Blood Cell 9.3 10^3/uL (4.4-10.8)
[2020-11-13 11:17] LABS: Albumin 2.4 g/dL (3.4-5.0); Calcium 8.3 mg/dL (8.5-10.1)
[2020-11-13 11:21] LABS: BUN/Creatinine Ratio 13.1; Bilirubin, Total 0.2 mg/dL (0.2-1.0); Total Protein 6.1 g/dL (6.4-8.2)
== END | disposition home or self-care (01) ==
LOC: LAB 10:32
PROVIDERS: ATTEND Internal Medicine
DX: K57.92 Diverticulitis of intestine, part unspecified, without perforation or abscess without bleeding (principal); Z90.49 Acquired absence of other specified parts of digestive tract
CPT/HCPCS: 36415; 80053; 85025

== ENCOUNTER 2020-12-28 04:27 | Inpatient (IN) | payer MEDICARE, BC ==
[~2020-12-28] VITALS: Ht 157.5 cm; Wt 71.7 kg
[2020-12-28 05:29] LABS: Basophils # (auto) 0 10 ^3/uL (0-0.2); Basophils % (auto) 0.4 % (0.0-2.0); Eosinophils # (auto) 0.2 10 ^3/uL (0-0.8); Eosinophils % (auto) 1.8 % (0.0-7.0); Hematocrit 46.6 % (36.0-46.0); Hemoglobin 15.7 g/dL (12.2-16.2); Lymphocytes # (auto) 4.1 10 ^3/uL (0.4-5.4); Lymphocytes % (auto) 32.2 % (10.0-50.0); Mean Corpuscular Hemoglobin 29.6 pg (28.0-32.0); Mean Corpuscular Hgb Conc. 33.7 g/dL (32.0-36.0); Mean Corpuscular Volume 87.8 fL (80.0-100.0); Monocytes # (auto) 1.1 10 ^3/uL (0-1.3); Monocytes % (auto) 8.6 % (0.0-12.0); Neutrophils # (auto) 7.2 10 ^3/uL (1.6-8.6); Nucleated Red Blood Cells % 0.2 %; Red Cell Distribution Width 15.4 % (11.8-14.3); White Blood Cell 12.6 10^3/uL (4.4-10.8)
[2020-12-28 05:59] LABS: Albumin 4.3 g/dL (3.4-5.0); Calcium 9.6 mg/dL (8.5-10.1)
[2020-12-28 06:03] LABS: BUN/Creatinine Ratio 21.7; Bilirubin, Total 0.8 mg/dL (0.2-1.0); Potassium 2.8 mmol/L (3.5-5.1)
[2020-12-28] MEDS ORDERED: SODIUM CHLORIDE 0.9% 1,000 ML IV ONE (06:15)
[2020-12-28 06:34] LABS: Lactic Acid w/Reflex 2.1 mmol/L (0.4-2.0)
[2020-12-28] MEDS: POTASSIUM CHL 20MEQ/100ML 100 ML IV SCH ×5 (06:43→21:47)
[2020-12-28] MEDS ORDERED: POTASSIUM CHL 20MEQ/100ML 100 ML IV ONE (07:45)
[2020-12-28] MEDS ORDERED: cefTRIAXone 1GM/50ML D5W 50 ML IV ONE (10:30)
[2020-12-28] MEDS ORDERED: metroNIDAZOLE 500MG/100ML 100 ML IV ONE (10:30)
[2020-12-28] MEDS ORDERED: FAMOTIDINE (10MG/ML) 2ML VL IV SCH ×2 (11:45→11:51)
[2020-12-28] MEDS ORDERED: NITROGLYCERIN 0.4 MG SL TAB SL PRN (11:45)
[2020-12-28] MEDS ORDERED: MORPHINE SULFATE INJECTION 2 MG/ML SYRG IV PRN ×2 (11:45)
[2020-12-28] MEDS ORDERED: DEXTROSE (50%) 50ML SYRG IV PRN (11:45)
[2020-12-28] MEDS ORDERED: HYDROcodone-ACET 5/325MG TAB PO PRN (11:45)
[2020-12-28] MEDS ORDERED: ACETAMINOPHEN 500 MG TAB PO PRN (11:45)
[2020-12-28] MEDS ORDERED: levoFLOXacin 500MG 100 ML IV ONE (11:45)
[2020-12-28] MEDS: FAMOTIDINE (10MG/ML) 2ML VL IV SCH (12:22)
[2020-12-28] MEDS: metroNIDAZOLE 500MG/100ML 100 ML IV SCH ×2 (15:21→21:16)
[2020-12-28] MEDS: SOD CHL 0.9%/ KCL 40MEQ 1,000 ML IV SCH ×2 (15:21→21:45)
[2020-12-28] MEDS: InsuLIN REG 1unit/0.01ml Soln (100units/ml) SC SCH ×2 (17:00→21:20)
[2020-12-28] MEDS: ACCU-CHEK COMFORT CURVE STRIP VI SCH ×2 (17:00→21:21)
[2020-12-28] MEDS: ZOLPIDEM TARTRATE 5 MG TAB PO SCH (21:17)
[2020-12-28] MEDS: ATORVASTATIN 20 MG TAB PO SCH (21:17)
[2020-12-28] MEDS: METOPROLOL TARTRATE 25 MG TAB PO SCH (21:18)
[2020-12-28 23:18] VITALS: BP 128/68
[2020-12-29 05:27] VITALS: BP 100/60
[2020-12-29] MEDS: metroNIDAZOLE 500MG/100ML 100 ML IV SCH ×3 (05:28→21:49)
[2020-12-29] MEDS: InsuLIN REG 1unit/0.01ml Soln (100units/ml) SC SCH (06:28)
[2020-12-29] MEDS: ACCU-CHEK COMFORT CURVE STRIP VI SCH (06:29)
[2020-12-29 07:25] LABS: Basophils # (auto) 0 10 ^3/uL (0-0.2); Basophils % (auto) 0.4 % (0.0-2.0); Eosinophils # (auto) 0.4 10 ^3/uL (0-0.8); Eosinophils % (auto) 4.9 % (0.0-7.0); Hematocrit 36.9 % (36.0-46.0); Hemoglobin 12.4 g/dL (12.2-16.2); Lymphocytes # (auto) 2.1 10 ^3/uL (0.4-5.4); Lymphocytes % (auto) 27.8 % (10.0-50.0); Mean Corpuscular Hemoglobin 29.8 pg (28.0-32.0); Mean Corpuscular Hgb Conc. 33.6 g/dL (32.0-36.0); Mean Corpuscular Volume 88.6 fL (80.0-100.0); Monocytes # (auto) 0.8 10 ^3/uL (0-1.3); Monocytes % (auto) 10.8 % (0.0-12.0); Neutrophils # (auto) 4.3 10 ^3/uL (1.6-8.6); Neutrophils % (auto) 56.1 % (37.0-80.0); Nucleated Red Blood Cells % 0.1 %; Red Blood Cells 4.16 10^6/uL (4.0-5.20); Red Cell Distribution Width 15.7 % (11.8-14.3); White Blood Cell 7.6 10^3/uL (4.4-10.8)
[2020-12-29 07:43] LABS: Albumin 3.1 g/dL (3.4-5.0); Calcium 8.2 mg/dL (8.5-10.1); Potassium 4.4 mmol/L (3.5-5.1)
[2020-12-29 07:46] LABS: INR 1.01 (0.9-1.15)
[2020-12-29 07:47] LABS: BUN/Creatinine Ratio 22.1; Bilirubin, Total 0.6 mg/dL (0.2-1.0)
[2020-12-29 08:50] VITALS: BP 125/69
[2020-12-29] MEDS: levoFLOXacin 500MG 100 ML IV SCH (09:45)
[2020-12-29] MEDS: METOPROLOL TARTRATE 25 MG TAB PO SCH ×2 (09:46→22:00)
[2020-12-29] MEDS: SERTRALINE HCL 50 MG TAB PO SCH (09:46)
[2020-12-29] MEDS: ENOXAPARIN SOD 30 MG/0.3 ML SYRINGE SC SCH (09:46)
[2020-12-29] MEDS: ONDANSETRON HCL 4 MG/2 ML VIAL IV PRN (10:30)
[2020-12-29] MEDS: SOD CHL 0.9%/ KCL 40MEQ 1,000 ML IV SCH ×2 (10:31→16:52)
[2020-12-29 12:53] VITALS: BP 121/69
[2020-12-29 17:00] VITALS: BP 137/68
[2020-12-29] MEDS: ZOLPIDEM TARTRATE 5 MG TAB PO SCH (21:49)
[2020-12-29 22:00] VITALS: BP 143/73
[2020-12-29] MEDS: ATORVASTATIN 20 MG TAB PO SCH (22:00)
[2020-12-30] MEDS: SOD CHL 0.9%/ KCL 40MEQ 1,000 ML IV SCH ×3 (02:31→23:45)
[2020-12-30 05:00] VITALS: BP 123/72
[2020-12-30] MEDS: ONDANSETRON HCL 4 MG/2 ML VIAL IV PRN ×2 (05:00→11:05)
[2020-12-30] MEDS: metroNIDAZOLE 500MG/100ML 100 ML IV SCH ×3 (05:00→22:09)
[2020-12-30 08:54] VITALS: BP 138/85
[2020-12-30] MEDS: ENOXAPARIN SOD 30 MG/0.3 ML SYRINGE SC SCH (10:03)
[2020-12-30] MEDS: SERTRALINE HCL 50 MG TAB PO SCH (10:04)
[2020-12-30] MEDS: levoFLOXacin 500MG 100 ML IV SCH (10:04)
[2020-12-30] MEDS: FAMOTIDINE (10MG/ML) 2ML VL IV SCH (10:04)
[2020-12-30] MEDS: METOPROLOL TARTRATE 25 MG TAB PO SCH ×2 (10:05→22:00)
[2020-12-30] MEDS: VANCOMYCIN HCL 125MG/5ML ORAL SOL PO SCH ×3 (11:04→22:08)
[2020-12-30 12:46] VITALS: BP 133/77
[2020-12-30 16:59] VITALS: BP 137/72
[2020-12-30 22:00] VITALS: BP 119/65
[2020-12-30] MEDS: ATORVASTATIN 20 MG TAB PO SCH (22:00)
[2020-12-30] MEDS: ZOLPIDEM TARTRATE 5 MG TAB PO SCH (22:08)
[2020-12-31 05:00] VITALS: BP 131/71
[2020-12-31] MEDS: metroNIDAZOLE 500MG/100ML 100 ML IV SCH ×3 (06:09→21:29)
[2020-12-31] MEDS: VANCOMYCIN HCL 125MG/5ML ORAL SOL PO SCH ×4 (06:09→21:30)
[2020-12-31 06:35] LABS: Albumin 3.6 g/dL (3.4-5.0); Calcium 8.6 mg/dL (8.5-10.1); Potassium 4.4 mmol/L (3.5-5.1)
[2020-12-31 06:40] LABS: BUN/Creatinine Ratio 8.3; Bilirubin, Total 0.5 mg/dL (0.2-1.0); Total Protein 6.8 g/dL (6.4-8.2)
[2020-12-31 09:00] VITALS: BP 114/90
[2020-12-31] MEDS: SOD CHL 0.9%/ KCL 40MEQ 1,000 ML IV SCH ×3 (09:45→16:30)
[2020-12-31] MEDS: METOPROLOL TARTRATE 25 MG TAB PO SCH ×2 (10:00→21:31)
[2020-12-31] MEDS: SERTRALINE HCL 50 MG TAB PO SCH (10:16)
[2020-12-31] MEDS: ENOXAPARIN SOD 30 MG/0.3 ML SYRINGE SC SCH (10:16)
[2020-12-31] MEDS: ONDANSETRON HCL 4 MG/2 ML VIAL IV PRN ×2 (11:57→18:34)
[2020-12-31 13:00] VITALS: BP 139/99
[2020-12-31 17:00] VITALS: BP 137/84
[2020-12-31] MEDS: ZOLPIDEM TARTRATE 5 MG TAB PO SCH (21:31)
[2020-12-31] MEDS: ATORVASTATIN 20 MG TAB PO SCH (21:31)
[2020-12-31 22:00] VITALS: BP 144/82
[2021-01-01] MEDS: ONDANSETRON HCL 4 MG/2 ML VIAL IV PRN ×2 (02:00→09:58)
[2021-01-01 05:00] VITALS: BP 122/69
[2021-01-01] MEDS: VANCOMYCIN HCL 125MG/5ML ORAL SOL PO SCH ×4 (05:29→22:06)
[2021-01-01] MEDS: metroNIDAZOLE 500MG/100ML 100 ML IV SCH ×3 (05:29→22:05)
[2021-01-01 06:11] LABS: Basophils # (auto) 0 10 ^3/uL (0-0.2); Basophils % (auto) 0.4 % (0.0-2.0); Eosinophils # (auto) 0.3 10 ^3/uL (0-0.8); Eosinophils % (auto) 2.4 % (0.0-7.0); Hematocrit 40.3 % (36.0-46.0); Hemoglobin 13.8 g/dL (12.2-16.2); Lymphocytes # (auto) 2.1 10 ^3/uL (0.4-5.4); Lymphocytes % (auto) 20.4 % (10.0-50.0); Mean Corpuscular Hemoglobin 30.3 pg (28.0-32.0); Mean Corpuscular Hgb Conc. 34.3 g/dL (32.0-36.0); Mean Corpuscular Volume 88.4 fL (80.0-100.0); Monocytes # (auto) 0.8 10 ^3/uL (0-1.3); Monocytes % (auto) 8.1 % (0.0-12.0); Neutrophils # (auto) 7.2 10 ^3/uL (1.6-8.6); Neutrophils % (auto) 68.7 % (37.0-80.0); Nucleated Red Blood Cells % 0.1 %; Red Blood Cells 4.56 10^6/uL (4.0-5.20); Red Cell Distribution Width 15.3 % (11.8-14.3); White Blood Cell 10.4 10^3/uL (4.4-10.8)
[2021-01-01 06:40] LABS: Potassium 4.1 mmol/L (3.5-5.1)
[2021-01-01 06:51] LABS: BUN/Creatinine Ratio 11.8; Calcium 8.5 mg/dL (8.5-10.1); Magnesium 1.6 mg/dL (1.6-2.6)
[2021-01-01 09:00] VITALS: BP 115/77
[2021-01-01] MEDS: SOD CHL 0.9%/ KCL 40MEQ 1,000 ML IV SCH (09:10)
[2021-01-01] MEDS: FAMOTIDINE (10MG/ML) 2ML VL IV SCH (09:56)
[2021-01-01] MEDS: SERTRALINE HCL 50 MG TAB PO SCH (09:57)
[2021-01-01] MEDS: METOPROLOL TARTRATE 25 MG TAB PO SCH ×2 (09:57→22:00)
[2021-01-01] MEDS ORDERED: ENOXAPARIN SOD 40 MG/0.4 ML SYRINGE SC SCH (10:00)
[2021-01-01] MEDS ORDERED: MAGNESIUM SULFATE 1GM/100ML 100 ML IV ONE (11:45)
[2021-01-01 13:00] VITALS: BP 125/74
[2021-01-01 17:12] VITALS: BP 116/62
[2021-01-01 22:00] VITALS: BP 98/63
[2021-01-01] MEDS: ZOLPIDEM TARTRATE 5 MG TAB PO SCH (22:06)
[2021-01-01] MEDS: ATORVASTATIN 20 MG TAB PO SCH (22:06)
[2021-01-02] MEDS: SOD CHL 0.9%/ KCL 40MEQ 1,000 ML IV SCH ×2 (02:19→14:00)
[2021-01-02 05:00] VITALS: BP 118/70
[2021-01-02] MEDS: metroNIDAZOLE 500MG/100ML 100 ML IV SCH (06:10)
[2021-01-02] MEDS: VANCOMYCIN HCL 125MG/5ML ORAL SOL PO SCH ×4 (06:10→21:58)
[2021-01-02 08:53] LABS: Calcium 8.2 mg/dL (8.5-10.1)
[2021-01-02 09:00] VITALS: BP 103/65
[2021-01-02] MEDS ORDERED: METOPROLOL TARTRATE 25 MG TAB PO ONE (09:30)
[2021-01-02] MEDS: METOPROLOL TARTRATE 25 MG TAB PO SCH ×2 (10:00→21:58)
[2021-01-02] MEDS: FAMOTIDINE (10MG/ML) 2ML VL IV SCH (10:20)
[2021-01-02] MEDS: SERTRALINE HCL 50 MG TAB PO SCH (10:21)
[2021-01-02] MEDS: ENOXAPARIN SOD 30 MG/0.3 ML SYRINGE SC SCH (10:22)
[2021-01-02 13:00] VITALS: BP 108/58
[2021-01-02 17:00] VITALS: BP 114/68
[2021-01-02] MEDS: ATORVASTATIN 20 MG TAB PO SCH ×2 (21:58→22:00)
[2021-01-02] MEDS: ZOLPIDEM TARTRATE 5 MG TAB PO SCH (21:59)
[2021-01-02 22:00] VITALS: BP 125/71
[2021-01-03] MEDS: ONDANSETRON HCL 4 MG/2 ML VIAL IV PRN (00:22)
[2021-01-03 05:00] VITALS: BP 104/61
[2021-01-03] MEDS: VANCOMYCIN HCL 125MG/5ML ORAL SOL PO SCH ×2 (06:11→12:38)
[2021-01-03 06:32] LABS: BUN/Creatinine Ratio 15.2; Calcium 8.1 mg/dL (8.5-10.1); Magnesium 1.4 mg/dL (1.6-2.6); Potassium 4.2 mmol/L (3.5-5.1)
[2021-01-03 08:30] VITALS: BP 126/82
[2021-01-03] MEDS: METOPROLOL TARTRATE 25 MG TAB PO SCH (09:45)
[2021-01-03] MEDS: FAMOTIDINE (10MG/ML) 2ML VL IV SCH (09:45)
[2021-01-03] MEDS: ENOXAPARIN SOD 30 MG/0.3 ML SYRINGE SC SCH (09:46)
[2021-01-03] MEDS: SERTRALINE HCL 50 MG TAB PO SCH (09:46)
[2021-01-03 12:30] VITALS: BP 125/77
[2021-01-03] MEDS ORDERED: VANC125PO PO (13:11)
[2021-01-03] MEDS ORDERED: MAGNESIUM SULFATE 1GM/100ML 100 ML IV SCH (14:00)
[2021-01-04] MEDS ORDERED: ENOXAPARIN SOD 40 MG/0.4 ML SYRINGE SC SCH (10:00)
== END 2021-01-03 15:56 | disposition home health service (06) | DRG 371 ==
LOC: ER 04:27 → EDBD 04:27 → TELE 04:28 → TELE-EAST 17:29
PROVIDERS: ADMIT Internal Medicine; ATTEND Internal Medicine
DX: A04.72 Enterocolitis due to Clostridium difficile, not specified as recurrent (principal); N17.0 Acute kidney failure with tubular necrosis; E87.2 Acidosis; K86.1 Other chronic pancreatitis; R65.10 Systemic inflammatory response syndrome (SIRS) of non-infectious origin without acute organ dysfunction; D72.829 Elevated white blood cell count, unspecified; E87.6 Hypokalemia; E78.5 Hyperlipidemia, unspecified; K21.9 Gastro-esophageal reflux disease without esophagitis; E66.9 Obesity, unspecified; N18.31 Chronic kidney disease, stage 3a; M47.812 Spondylosis without myelopathy or radiculopathy, cervical region; F32.9 Major depressive disorder, single episode, unspecified; Z20.822 Contact with and (suspected) exposure to COVID-19; E86.0 Dehydration; I12.9 Hypertensive chronic kidney disease with stage 1 through stage 4 chronic kidney disease, or unspecified chronic kidney disease; E11.22 Type 2 diabetes mellitus with diabetic chronic kidney disease; Z80.0 Family history of malignant neoplasm of digestive organs; Z80.3 Family history of malignant neoplasm of breast; Z82.49 Family history of ischemic heart disease and other diseases of the circulatory system; Z85.038 Personal history of other malignant neoplasm of large intestine; Z86.718 Personal history of other venous thrombosis and embolism; Z87.19 Personal history of other diseases of the digestive system; Z90.49 Acquired absence of other specified parts of digestive tract; Z90.710 Acquired absence of both cervix and uterus; Z68.28 Body mass index [BMI] 28.0-28.9, adult
CPT/HCPCS: 36415; 71045; 74176; 80048; 80053; 82962; 83036; 83605; 83690; 83735; 85025; 85610; 85730; 87040; 87045; 87426; 87427; 87493; 93005; 96365; 96366; 96367; 96368; 96372; 97163; G0378; J0696; J1956; J2405; J3480; J3490

== ENCOUNTER 2021-01-07 00:51 | Inpatient (IN) | payer MEDICARE, BC ==
[~2021-01-07] VITALS: Ht 162.6 cm; Wt 77.7 kg
[~2021-01-07 00:51] MED LIST changes: -ATOR40TA52 PO; -MET25T PO; -PANT40TA2 PO
[2021-01-07 02:03] LABS: Albumin 3.6 g/dL (3.4-5.0); BUN/Creatinine Ratio 13.8; Calcium 8.5 mg/dL (8.5-10.1); Magnesium 1.3 mg/dL (1.6-2.6); Potassium 3.3 mmol/L (3.5-5.1)
[2021-01-07 02:06] LABS: Bilirubin, Total 0.4 mg/dL (0.2-1.0); Total Protein 7.5 g/dL (6.4-8.2)
[2021-01-07 02:08] LABS: Basophils # (auto) 0 10 ^3/uL (0-0.2); Basophils % (auto) 0.4 % (0.0-2.0); Eosinophils # (auto) 0.1 10 ^3/uL (0-0.8); Eosinophils % (auto) 0.9 % (0.0-7.0); Hematocrit 39.9 % (36.0-46.0); Hemoglobin 13.1 g/dL (12.2-16.2); Lymphocytes # (auto) 3.6 10 ^3/uL (0.4-5.4); Lymphocytes % (auto) 30.9 % (10.0-50.0); Mean Corpuscular Hemoglobin 29.3 pg (28.0-32.0); Mean Corpuscular Hgb Conc. 32.7 g/dL (32.0-36.0); Mean Corpuscular Volume 89.3 fL (80.0-100.0); Monocytes % (auto) 8.2 % (0.0-12.0); Neutrophils % (auto) 59.6 % (37.0-80.0); Nucleated Red Blood Cells % 0.1 %; Red Blood Cells 4.47 10^6/uL (4.0-5.20); White Blood Cell 11.7 10^3/uL (4.4-10.8)
[2021-01-07] MEDS ORDERED: SODIUM CHLORIDE 0.9% 1,000 ML IV ONE (05:00)
[2021-01-07] MEDS ORDERED: HYDROcodone-ACET 5/325MG TAB PO PRN (05:45)
[2021-01-07] MEDS ORDERED: LOPERAMIDE HCL 2 MG CAP PO PRN (05:45)
[2021-01-07] MEDS ORDERED: DEXTROSE (50%) 50ML SYRG IV PRN (05:45)
[2021-01-07] MEDS ORDERED: ACETAMINOPHEN 325 MG TAB PO PRN (05:45)
[2021-01-07] MEDS ORDERED: SOD CHL 0.9%/ KCL 20MEQ 1,000 ML IV ONE (05:45)
[2021-01-07] MEDS: VANCOMYCIN HCL 125MG/5ML ORAL SOL PO SCH ×4 (07:00→22:02)
[2021-01-07] MEDS: metroNIDAZOLE 500MG/100ML 100 ML IV SCH ×3 (07:00→22:03)
[2021-01-07] MEDS: ACCU-CHEK COMFORT CURVE STRIP VI SCH ×4 (07:00→23:39)
[2021-01-07] MEDS: InsuLIN REG 1unit/0.01ml Soln (100units/ml) SC SCH ×4 (07:00→23:41)
[2021-01-07 09:00] VITALS: BP 120/80
[2021-01-07] MEDS: ONDANSETRON HCL 4 MG/2 ML VIAL IV PRN ×2 (09:24→18:22)
[2021-01-07] MEDS: MAGNESIUM SULFATE 1GM/100ML 100 ML IV SCH ×2 (09:24→10:38)
[2021-01-07] MEDS ORDERED: LISINOPRIL 5 MG TAB PO SCH (10:00)
[2021-01-07] MEDS ORDERED: PANTOPRAZOLE 40 MG TAB PO SCH (10:00)
[2021-01-07] MEDS ORDERED: FLORASTOR (S. BOULARDII) 250 MG CAP PO SCH (10:00)
[2021-01-07] MEDS ORDERED: ZOLP10TA PO (10:02)
[2021-01-07] MEDS: CITALOPRAM HYDROBR 20 MG TAB PO SCH (10:38)
[2021-01-07] MEDS: METOPROLOL TARTRATE 25 MG TAB PO SCH ×3 (10:39→23:39)
[2021-01-07 13:00] VITALS: BP_SYST 108; BP_SYST 127; BP_DIAS 70; BP_DIAS 71
[2021-01-07] MEDS: SOD CHL 0.9%/ KCL 20MEQ 1,000 ML IV SCH (15:16)
[2021-01-07 17:00] VITALS: BP 93/59
[2021-01-07 20:00] VITALS: BP 124/76
[2021-01-07 22:00] VITALS: BP 124/76
[2021-01-07] MEDS: TEMAZEPAM 15 MG CAP PO PRN (22:55)
[2021-01-08 05:00] VITALS: BP 94/50
[2021-01-08] MEDS: InsuLIN REG 1unit/0.01ml Soln (100units/ml) SC SCH ×3 (06:00→18:00)
[2021-01-08] MEDS: VANCOMYCIN HCL 125MG/5ML ORAL SOL PO SCH ×4 (06:06→22:29)
[2021-01-08] MEDS: ACCU-CHEK COMFORT CURVE STRIP VI SCH ×3 (06:06→18:19)
[2021-01-08] MEDS: metroNIDAZOLE 500MG/100ML 100 ML IV SCH ×2 (06:07→15:03)
[2021-01-08] MEDS: SOD CHL 0.9%/ KCL 20MEQ 1,000 ML IV SCH ×2 (06:07→23:20)
[2021-01-08 07:04] LABS: Basophils # (auto) 0.1 10 ^3/uL (0-0.2); Basophils % (auto) 0.5 % (0.0-2.0); Eosinophils # (auto) 0.1 10 ^3/uL (0-0.8); Eosinophils % (auto) 1.1 % (0.0-7.0); Hemoglobin 13.3 g/dL (12.2-16.2); Lymphocytes # (auto) 2.8 10 ^3/uL (0.4-5.4); Lymphocytes % (auto) 23.6 % (10.0-50.0); Mean Corpuscular Hemoglobin 29.7 pg (28.0-32.0); Mean Corpuscular Hgb Conc. 33.3 g/dL (32.0-36.0); Mean Corpuscular Volume 89.2 fL (80.0-100.0); Monocytes # (auto) 1.2 10 ^3/uL (0-1.3); Monocytes % (auto) 10.3 % (0.0-12.0); Neutrophils # (auto) 7.8 10 ^3/uL (1.6-8.6); Neutrophils % (auto) 64.5 % (37.0-80.0); Red Blood Cells 4.49 10^6/uL (4.0-5.20); Red Cell Distribution Width 15.8 % (11.8-14.3); White Blood Cell 12.1 10^3/uL (4.4-10.8)
[2021-01-08 07:19] LABS: Potassium 3.9 mmol/L (3.5-5.1)
[2021-01-08 07:23] LABS: BUN/Creatinine Ratio 20.1; Calcium 8.3 mg/dL (8.5-10.1)
[2021-01-08 09:00] VITALS: BP 117/57
[2021-01-08 09:35] LABS: Urine Bacteria FEW /hpf (None Seen); Urine Blood Negative /uL (Negative); Urine Hyaline Cast FEW /lpf (0 - 2); Urine Specific Gravity 1.024 (1.001-1.035); Urine WBC 52 /hpf (0 - 5)
[2021-01-08] MEDS: CITALOPRAM HYDROBR 20 MG TAB PO SCH (09:49)
[2021-01-08] MEDS: PANTOPRAZOLE 40 MG TAB PO SCH (09:50)
[2021-01-08] MEDS: METOPROLOL TARTRATE 25 MG TAB PO SCH ×2 (09:50→22:00)
[2021-01-08 13:00] VITALS: BP 104/56
[2021-01-08] MEDS ORDERED: CHOLESTYRAMINE 4 GM POWDER PO SCH (14:00)
[2021-01-08 17:00] VITALS: BP 109/48
[2021-01-08 20:00] VITALS: BP 99/52
[2021-01-08 22:00] VITALS: BP 99/54
[2021-01-09] MEDS: metroNIDAZOLE 500MG/100ML 100 ML IV SCH ×4 (00:03→22:48)
[2021-01-09 05:00] VITALS: BP 113/55
[2021-01-09] MEDS: VANCOMYCIN HCL 125MG/5ML ORAL SOL PO SCH ×4 (05:51→22:07)
[2021-01-09] MEDS: InsuLIN REG 1unit/0.01ml Soln (100units/ml) SC SCH ×2 (06:00)
[2021-01-09] MEDS: ACCU-CHEK COMFORT CURVE STRIP VI SCH ×2 (06:00)
[2021-01-09 08:10] LABS: Basophils # (auto) 0 10 ^3/uL (0-0.2); Basophils % (auto) 0.5 % (0.0-2.0); Eosinophils # (auto) 0.1 10 ^3/uL (0-0.8); Eosinophils % (auto) 1.9 % (0.0-7.0); Hematocrit 35.7 % (36.0-46.0); Hemoglobin 12.1 g/dL (12.2-16.2); Lymphocytes # (auto) 2.5 10 ^3/uL (0.4-5.4); Lymphocytes % (auto) 32.4 % (10.0-50.0); Mean Corpuscular Hgb Conc. 33.8 g/dL (32.0-36.0); Mean Corpuscular Volume 88.9 fL (80.0-100.0); Monocytes # (auto) 0.7 10 ^3/uL (0-1.3); Monocytes % (auto) 9.5 % (0.0-12.0); Neutrophils # (auto) 4.2 10 ^3/uL (1.6-8.6); Neutrophils % (auto) 55.7 % (37.0-80.0); Nucleated Red Blood Cells % 0.1 %; Red Blood Cells 4.02 10^6/uL (4.0-5.20); Red Cell Distribution Width 15.6 % (11.8-14.3); White Blood Cell 7.6 10^3/uL (4.4-10.8)
[2021-01-09 08:53] LABS: Potassium 4.1 mmol/L (3.5-5.1)
[2021-01-09 08:58] VITALS: BP 121/60
[2021-01-09 09:09] LABS: BUN/Creatinine Ratio 21.3; Calcium 8.3 mg/dL (8.5-10.1); Magnesium 1.7 mg/dL (1.6-2.6)
[2021-01-09] MEDS: CITALOPRAM HYDROBR 20 MG TAB PO SCH (09:46)
[2021-01-09] MEDS: METOPROLOL TARTRATE 25 MG TAB PO SCH (09:47)
[2021-01-09] MEDS: PANTOPRAZOLE 40 MG TAB PO SCH (09:47)
[2021-01-09 12:44] VITALS: BP 124/69
[2021-01-09] MEDS ORDERED: MAGNESIUM SULFATE 1GM/100ML 100 ML IV ONE (13:15)
[2021-01-09] MEDS: SODIUM CHLORIDE 0.9% 1,000 ML IV SCH (14:00)
[2021-01-09 16:48] VITALS: BP 116/57
[2021-01-09 20:00] VITALS: BP 122/68
[2021-01-09 22:00] VITALS: BP 122/68
[2021-01-10] MEDS: TEMAZEPAM 15 MG CAP PO PRN (01:13)
[2021-01-10 05:00] VITALS: BP 125/57
[2021-01-10] MEDS: VANCOMYCIN HCL 125MG/5ML ORAL SOL PO SCH ×2 (05:46→12:07)
[2021-01-10] MEDS: SODIUM CHLORIDE 0.9% 1,000 ML IV SCH (05:55)
[2021-01-10] MEDS: metroNIDAZOLE 500MG/100ML 100 ML IV SCH ×2 (06:42→15:01)
[2021-01-10 06:43] LABS: Calcium 7.8 mg/dL (8.5-10.1); Magnesium 1.6 mg/dL (1.6-2.6); Potassium 3.6 mmol/L (3.5-5.1)
[2021-01-10 08:00] VITALS: BP 114/62
[2021-01-10 09:00] VITALS: BP 125/71
[2021-01-10] MEDS: CITALOPRAM HYDROBR 20 MG TAB PO SCH (09:37)
[2021-01-10] MEDS: PANTOPRAZOLE 40 MG TAB PO SCH (09:37)
[2021-01-10] MEDS: ONDANSETRON HCL 4 MG/2 ML VIAL IV PRN (10:00)
[2021-01-10] MEDS ORDERED: MAGNESIUM SULFATE 1GM/100ML 100 ML IV ONE (10:45)
[2021-01-10] MEDS ORDERED: POTASSIUM CHL 20 Meq TABLET PO ONE (11:15)
[2021-01-10] MEDS ORDERED: CHL4PW PO (11:28)
[2021-01-10] MEDS ORDERED: ONDA-144 PO (11:31)
[2021-01-10 12:54] VITALS: BP 112/67
[2021-01-10 13:00] VITALS: BP 132/69
[2021-01-10] MEDS ORDERED: CHOLESTYRAMINE 4 GM POWDER PO SCH (14:00)
== END 2021-01-10 16:25 | disposition home health service (06) | DRG 391 ==
LOC: EDBD 00:51 → ER 00:53 → OVERFLOW 05:37 → TELE-CENTR 08:34
PROVIDERS: ADMIT Nurse Practitioner; ATTEND Internal Medicine
DX: K59.1 Functional diarrhea (principal); N17.0 Acute kidney failure with tubular necrosis; A04.72 Enterocolitis due to Clostridium difficile, not specified as recurrent; R65.10 Systemic inflammatory response syndrome (SIRS) of non-infectious origin without acute organ dysfunction; E87.8 Other disorders of electrolyte and fluid balance, not elsewhere classified; Z20.822 Contact with and (suspected) exposure to COVID-19; E11.22 Type 2 diabetes mellitus with diabetic chronic kidney disease; E78.5 Hyperlipidemia, unspecified; F32.9 Major depressive disorder, single episode, unspecified; I12.9 Hypertensive chronic kidney disease with stage 1 through stage 4 chronic kidney disease, or unspecified chronic kidney disease; N18.31 Chronic kidney disease, stage 3a; Z80.0 Family history of malignant neoplasm of digestive organs; Z80.3 Family history of malignant neoplasm of breast; Z90.49 Acquired absence of other specified parts of digestive tract; Z90.710 Acquired absence of both cervix and uterus
CPT/HCPCS: 36415; 80048; 80053; 81001; 82962; 83605; 83690; 83735; 85025; 85049; 87081; 87426; 87493; 93005; 96361; 96365; 97163; G0378; J1815; J2405; J3490

== ENCOUNTER 2021-02-02 10:08 | Inpatient (IN) | payer MEDICARE, BC ==
[~2021-02-02] VITALS: Ht 167.6 cm; Wt 71.3 kg
[~2021-02-02 10:08] MED LIST changes: +CHL4PW PO; +ONDA-144 PO; +ZOLP10TA PO
[2021-02-02 11:07] LABS: Basophils # (auto) 0 10 ^3/uL (0-0.2); Basophils % (auto) 0.4 % (0.0-2.0); Eosinophils # (auto) 0.1 10 ^3/uL (0-0.8); Eosinophils % (auto) 1.7 % (0.0-7.0); Hematocrit 41.3 % (36.0-46.0); Hemoglobin 13.3 g/dL (12.2-16.2); Lymphocytes % (auto) 23.1 % (10.0-50.0); Mean Corpuscular Hemoglobin 28.7 pg (28.0-32.0); Mean Corpuscular Hgb Conc. 32.1 g/dL (32.0-36.0); Mean Corpuscular Volume 89.4 fL (80.0-100.0); Monocytes # (auto) 0.8 10 ^3/uL (0-1.3); Neutrophils # (auto) 5.8 10 ^3/uL (1.6-8.6); Neutrophils % (auto) 65.8 % (37.0-80.0); Nucleated Red Blood Cells % 0.2 %; Red Blood Cells 4.62 10^6/uL (4.0-5.20); Red Cell Distribution Width 15.8 % (11.8-14.3); White Blood Cell 8.8 10^3/uL (4.4-10.8)
[2021-02-02 11:21] LABS: Chloride 115 mmol/L (98-107); Potassium 3.6 mmol/L (3.5-5.1); Sodium 144 mmol/L (136-145)
[2021-02-02 11:30] LABS: Alanine Aminotransferase 16 U/L (13-56); Albumin 3.2 g/dL (3.4-5.0); Alkaline Phosphatase 77 U/L (45-117); Anion Gap 10 (5-15); Aspartate Aminotransferase 12 U/L (15-37); BUN/Creatinine Ratio 10.8; Bilirubin, Total 0.3 mg/dL (0.2-1.0); Blood Urea Nitrogen 16 mg/dL (7-18); Calcium 8.1 mg/dL (8.5-10.1); Carbon Dioxide 19 mmol/L (21-32); GFR African American 44 mL/min; GFR Non-African American 36 mL/min; Glucose 195 mg/dL (74-106); Magnesium 1.4 mg/dL (1.6-2.6); Total Protein 6.4 g/dL (6.4-8.2)
[2021-02-02] MEDS ORDERED: cefTRIAXone 1GM/50ML D5W 50 ML IV ONE (12:30)
[2021-02-02] MEDS ORDERED: ONDANSETRON HCL 4 MG/2 ML VIAL IV ONE (12:30)
[2021-02-02] MEDS ORDERED: metroNIDAZOLE 500MG/100ML 100 ML IV ONE (12:30)
[2021-02-02 13:07] LABS: Lactic Acid w/Reflex 2.5 mmol/L (0.4-2.0)
[2021-02-02] MEDS ORDERED: MORPHINE SULFATE INJECTION 2 MG/ML SYRG IV PRN ×2 (13:45)
[2021-02-02] MEDS ORDERED: NITROGLYCERIN 0.4 MG SL TAB SL PRN (13:45)
[2021-02-02] MEDS ORDERED: LACTATED RINGER'S 1,000 ML IV ONE (13:45)
[2021-02-02] MEDS ORDERED: ONDANSETRON HCL 4 MG/2 ML VIAL IV PRN (13:45)
[2021-02-02] MEDS: metroNIDAZOLE 500MG/100ML 100 ML IV SCH ×2 (14:00→23:35)
[2021-02-02] MEDS: LACTATED RINGER'S 1,000 ML IV SCH ×2 (16:25→19:06)
[2021-02-02] MEDS ORDERED: BUSP5TAB51 PO (17:58)
[2021-02-02] MEDS ORDERED: LISI-275 PO (17:58)
[2021-02-02] MEDS ORDERED: MET25T PO (17:58)
[2021-02-02] MEDS: VANCOMYCIN HCL 125MG/5ML ORAL SOL PO SCH ×2 (18:00→21:57)
[2021-02-02 22:00] VITALS: BP 146/68
[2021-02-02] MEDS: ZOLPIDEM TARTRATE 5 MG TAB PO SCH (23:34)
[2021-02-02] MEDS: FLORASTOR (S. BOULARDII) 250 MG CAP PO SCH (23:35)
[2021-02-03 05:00] VITALS: BP 117/71
[2021-02-03] MEDS: VANCOMYCIN HCL 125MG/5ML ORAL SOL PO SCH ×4 (06:00→20:47)
[2021-02-03] MEDS: metroNIDAZOLE 500MG/100ML 100 ML IV SCH ×3 (06:49→20:47)
[2021-02-03 07:11] LABS: Basophils # (auto) 0 10 ^3/uL (0-0.2); Basophils % (auto) 0.4 % (0.0-2.0); Eosinophils # (auto) 0.2 10 ^3/uL (0-0.8); Eosinophils % (auto) 2.3 % (0.0-7.0); Hematocrit 39.2 % (36.0-46.0); Lymphocytes # (auto) 2.5 10 ^3/uL (0.4-5.4); Lymphocytes % (auto) 28.1 % (10.0-50.0); Mean Corpuscular Hemoglobin 29.2 pg (28.0-32.0); Mean Corpuscular Hgb Conc. 33.1 g/dL (32.0-36.0); Mean Corpuscular Volume 88.1 fL (80.0-100.0); Monocytes # (auto) 0.8 10 ^3/uL (0-1.3); Monocytes % (auto) 9.1 % (0.0-12.0); Neutrophils # (auto) 5.4 10 ^3/uL (1.6-8.6); Neutrophils % (auto) 60.1 % (37.0-80.0); Nucleated Red Blood Cells % 0.1 %; Red Blood Cells 4.45 10^6/uL (4.0-5.20); Red Cell Distribution Width 15.8 % (11.8-14.3)
[2021-02-03 07:29] LABS: Albumin 3.1 g/dL (3.4-5.0); Calcium 8.2 mg/dL (8.5-10.1); Magnesium 1.5 mg/dL (1.6-2.6); Potassium 3.1 mmol/L (3.5-5.1)
[2021-02-03 07:32] LABS: BUN/Creatinine Ratio 11.3; Bilirubin, Total 0.4 mg/dL (0.2-1.0); Total Protein 6.4 g/dL (6.4-8.2)
[2021-02-03 09:00] VITALS: BP 115/68
[2021-02-03] MEDS ORDERED: TPN PER PHARMACY 0 ML IV SCH (09:30)
[2021-02-03] MEDS: LACTATED RINGER'S 1,000 ML IV SCH ×2 (09:45→19:45)
[2021-02-03] MEDS: FLORASTOR (S. BOULARDII) 250 MG CAP PO SCH ×2 (09:46→20:47)
[2021-02-03] MEDS: ENOXAPARIN SOD 40 MG/0.4 ML SYRINGE SC SCH (09:47)
[2021-02-03] MEDS: SERTRALINE HCL 50 MG TAB PO SCH (09:47)
[2021-02-03] MEDS: PANTOPRAZOLE 40 MG TAB PO SCH (09:47)
[2021-02-03 10:15] LABS: Magnesium 1.4 mg/dL (1.6-2.6); Phosphorus 2.8 mg/dL (2.5-4.90)
[2021-02-03 10:19] LABS: Pre Albumin 20.1 mg/dL (20.0-40.0)
[2021-02-03] MEDS ORDERED: PPN PER PHARMACY 0 ML IV SCH (10:45)
[2021-02-03] MEDS ORDERED: POTASSIUM CHL 20 Meq TABLET PO ONE (11:30)
[2021-02-03] MEDS: MAGNESIUM SULFATE 1GM/100ML 100 ML IV SCH ×2 (12:15→13:19)
[2021-02-03 13:00] VITALS: BP 130/66
[2021-02-03] MEDS ORDERED: PROMETHAZINE HCL 25 MG/ML 1ML IV PRN (13:30)
[2021-02-03 17:00] VITALS: BP 136/84
[2021-02-03] MEDS ORDERED: AMINO ACID INFUSION IN D10W 1,000 ML IV ONE (20:00)
[2021-02-03 22:00] VITALS: BP 152/96
[2021-02-04] MEDS ORDERED: DEXTROSE (50%) 50ML SYRG IV SCH
[2021-02-04] MEDS: InsuLIN REG 1unit/0.01ml Soln (100units/ml) SC SCH ×5 (00:01→22:34)
[2021-02-04] MEDS: ZOLPIDEM TARTRATE 5 MG TAB PO SCH ×2 (00:02→17:50)
[2021-02-04] MEDS: ACCU-CHEK COMFORT CURVE STRIP VI SCH ×5 (00:15→22:34)
[2021-02-04] MEDS: LACTATED RINGER'S 1,000 ML IV SCH ×2 (04:43→14:07)
[2021-02-04] MEDS: metroNIDAZOLE 500MG/100ML 100 ML IV SCH ×3 (04:48→20:28)
[2021-02-04] MEDS: VANCOMYCIN HCL 125MG/5ML ORAL SOL PO SCH ×2 (04:48→12:00)
[2021-02-04 05:00] VITALS: BP 109/53
[2021-02-04 05:50] LABS: Basophils # (auto) 0 10 ^3/uL (0-0.2); Basophils % (auto) 0.3 % (0.0-2.0); Eosinophils # (auto) 0.2 10 ^3/uL (0-0.8); Eosinophils % (auto) 1.6 % (0.0-7.0); Hematocrit 38.5 % (36.0-46.0); Hemoglobin 12.8 g/dL (12.2-16.2); Lymphocytes # (auto) 2.4 10 ^3/uL (0.4-5.4); Lymphocytes % (auto) 23.6 % (10.0-50.0); Mean Corpuscular Hemoglobin 29.5 pg (28.0-32.0); Mean Corpuscular Hgb Conc. 33.2 g/dL (32.0-36.0); Mean Corpuscular Volume 88.7 fL (80.0-100.0); Monocytes % (auto) 9.6 % (0.0-12.0); Neutrophils # (auto) 6.6 10 ^3/uL (1.6-8.6); Neutrophils % (auto) 64.9 % (37.0-80.0); Nucleated Red Blood Cells % 0.1 %; Red Blood Cells 4.34 10^6/uL (4.0-5.20); Red Cell Distribution Width 15.6 % (11.8-14.3); White Blood Cell 10.1 10^3/uL (4.4-10.8)
[2021-02-04 07:01] LABS: Albumin 2.9 g/dL (3.4-5.0); BUN/Creatinine Ratio 13.3; Bilirubin, Total 0.3 mg/dL (0.2-1.0); Calcium 7.9 mg/dL (8.5-10.1); Phosphorus 2.5 mg/dL (2.5-4.90); Total Protein 5.9 g/dL (6.4-8.2)
[2021-02-04 09:00] VITALS: BP 84/43
[2021-02-04] MEDS: PANTOPRAZOLE 40 MG TAB PO SCH (09:54)
[2021-02-04] MEDS: FLORASTOR (S. BOULARDII) 250 MG CAP PO SCH ×2 (09:54→20:28)
[2021-02-04 09:55] LABS: INR 1.05 (0.9-1.15)
[2021-02-04] MEDS: ENOXAPARIN SOD 40 MG/0.4 ML SYRINGE SC SCH (09:55)
[2021-02-04] MEDS: SERTRALINE HCL 50 MG TAB PO SCH (09:55)
[2021-02-04 12:58] VITALS: BP 113/66
[2021-02-04] MEDS ORDERED: LIDOCAINE 1% (LOCAL ANESTH.) PF 5ml SDV ID ONE (16:00)
[2021-02-04 16:58] VITALS: BP 132/72
[2021-02-04] MEDS ORDERED: PPN PER PHARMACY IV NR ×10 (20:00)
[2021-02-04] MEDS: SODIUM CHLOR 0.9% PF (SALINE LOCK) 10ML VIAL/SYR IV SCH (20:28)
[2021-02-04 22:59] VITALS: BP 143/86
[2021-02-05] MEDS: LACTATED RINGER'S 1,000 ML IV SCH ×3 (01:45→21:21)
[2021-02-05 05:19] VITALS: BP 113/63
[2021-02-05] MEDS: ACCU-CHEK COMFORT CURVE STRIP VI SCH ×4 (05:33→23:44)
[2021-02-05] MEDS: InsuLIN REG 1unit/0.01ml Soln (100units/ml) SC SCH ×4 (05:33→23:43)
[2021-02-05] MEDS: metroNIDAZOLE 500MG/100ML 100 ML IV SCH ×3 (05:33→21:20)
[2021-02-05 06:25] LABS: Potassium 3.6 mmol/L (3.5-5.1)
[2021-02-05 06:40] LABS: Albumin 2.6 g/dL (3.4-5.0); BUN/Creatinine Ratio 16.1; Bilirubin, Total 0.2 mg/dL (0.2-1.0); Magnesium 1.7 mg/dL (1.6-2.6); Phosphorus 2.4 mg/dL (2.5-4.90); Total Protein 5.4 g/dL (6.4-8.2)
[2021-02-05 09:00] VITALS: BP 132/66
[2021-02-05] MEDS: FLORASTOR (S. BOULARDII) 250 MG CAP PO SCH ×2 (09:45→21:20)
[2021-02-05] MEDS: PANTOPRAZOLE 40 MG TAB PO SCH (10:00)
[2021-02-05] MEDS: SODIUM CHLOR 0.9% PF (SALINE LOCK) 10ML VIAL/SYR IV SCH ×2 (10:00→21:20)
[2021-02-05] MEDS: SERTRALINE HCL 50 MG TAB PO SCH (10:00)
[2021-02-05] MEDS: ENOXAPARIN SOD 40 MG/0.4 ML SYRINGE SC SCH (10:15)
[2021-02-05 13:00] VITALS: BP 129/65
[2021-02-05] MEDS ORDERED: MAGNESIUM CITRATE SOLUTION 300 ML BTL PO ONE (13:00)
[2021-02-05 16:59] VITALS: BP 137/76
[2021-02-05] MEDS ORDERED: TPN PER PHARMACY IV NR ×9 (20:00)
[2021-02-05 22:00] VITALS: BP 156/80
[2021-02-06] MEDS: ZOLPIDEM TARTRATE 5 MG TAB PO SCH ×2 (01:03→21:30)
[2021-02-06 04:52] LABS: Urine Bacteria FEW /hpf (None Seen); Urine Blood Negative /uL (Negative); Urine Specific Gravity 1.007 (1.001-1.035); Urine WBC 1 /hpf (0 - 5)
[2021-02-06] MEDS: ACCU-CHEK COMFORT CURVE STRIP VI SCH ×3 (04:57→18:00)
[2021-02-06] MEDS: metroNIDAZOLE 500MG/100ML 100 ML IV SCH (04:57)
[2021-02-06] MEDS: InsuLIN REG 1unit/0.01ml Soln (100units/ml) SC SCH ×3 (04:58→18:00)
[2021-02-06 05:00] VITALS: BP 127/75
[2021-02-06 05:40] LABS: Potassium 3.2 mmol/L (3.5-5.1)
[2021-02-06 05:47] LABS: Albumin 2.7 g/dL (3.4-5.0); BUN/Creatinine Ratio 20.2; Bilirubin, Total 0.2 mg/dL (0.2-1.0); Calcium 7.9 mg/dL (8.5-10.1); Magnesium 1.7 mg/dL (1.6-2.6); Phosphorus 2.9 mg/dL (2.5-4.90); Total Protein 5.4 g/dL (6.4-8.2)
[2021-02-06] MEDS ORDERED: SODIUM CHLORIDE LOCK 10 ML ONE (07:43)
[2021-02-06] MEDS ORDERED: diphenhdrAMINE HCL 50 MG/1 ML VL ONE (07:43)
[2021-02-06] MEDS: LACTATED RINGER'S 1,000 ML IV SCH ×2 (08:15→17:45)
[2021-02-06] MEDS: SODIUM CHLOR 0.9% PF (SALINE LOCK) 10ML VIAL/SYR IV SCH ×2 (08:57→22:03)
[2021-02-06] MEDS: ENOXAPARIN SOD 40 MG/0.4 ML SYRINGE SC SCH (08:57)
[2021-02-06] MEDS: PANTOPRAZOLE 40 MG TAB PO SCH (08:57)
[2021-02-06] MEDS: FLORASTOR (S. BOULARDII) 250 MG CAP PO SCH ×2 (08:58→22:03)
[2021-02-06] MEDS: fentaNYL CITRATE 100 MCG/2 ML VL ONE ×2 (08:59→09:03)
[2021-02-06] MEDS: MIDAZOLAM HCL 5 MG/ML-1ML VIAL ONE ×2 (08:59→09:03)
[2021-02-06 09:00] VITALS: BP 135/74
[2021-02-06] MEDS ORDERED: POTASSIUM PHOSP 22MEQ(15MMOLE) in NS 100 ML IV ONE (12:00)
[2021-02-06] MEDS: SERTRALINE HCL 50 MG TAB PO SCH (12:32)
[2021-02-06] MEDS: CHOLESTYRAMINE 4 GM POWDER PO SCH ×3 (12:33→22:00)
[2021-02-06 13:00] VITALS: BP 124/59
[2021-02-06 16:43] VITALS: BP 142/75
[2021-02-06] MEDS ORDERED: TPN PER PHARMACY IV NR ×17 (20:00)
[2021-02-06 22:00] VITALS: BP 144/83
[2021-02-07] MEDS: ACCU-CHEK COMFORT CURVE STRIP VI SCH ×3 (00:23→12:31)
[2021-02-07] MEDS: LACTATED RINGER'S 1,000 ML IV SCH ×3 (03:45→23:45)
[2021-02-07 05:00] VITALS: BP 138/72
[2021-02-07 05:49] LABS: Calcium 8.1 mg/dL (8.5-10.1); Magnesium 1.7 mg/dL (1.6-2.6); Potassium 3.8 mmol/L (3.5-5.1)
[2021-02-07 05:53] LABS: BUN/Creatinine Ratio 22.6; Bilirubin, Total 0.2 mg/dL (0.2-1.0); Phosphorus 4.2 mg/dL (2.5-4.90); Total Protein 6.1 g/dL (6.4-8.2)
[2021-02-07] MEDS: InsuLIN REG 1unit/0.01ml Soln (100units/ml) SC SCH ×3 (06:00→12:31)
[2021-02-07] MEDS: CHOLESTYRAMINE 4 GM POWDER PO SCH ×4 (06:12→21:58)
[2021-02-07 09:04] VITALS: BP 130/69
[2021-02-07] MEDS: FLORASTOR (S. BOULARDII) 250 MG CAP PO SCH ×2 (09:30→21:58)
[2021-02-07] MEDS: ENOXAPARIN SOD 40 MG/0.4 ML SYRINGE SC SCH (09:30)
[2021-02-07] MEDS: SERTRALINE HCL 50 MG TAB PO SCH (09:30)
[2021-02-07] MEDS: SODIUM CHLOR 0.9% PF (SALINE LOCK) 10ML VIAL/SYR IV SCH ×2 (09:30→22:00)
[2021-02-07] MEDS: PANTOPRAZOLE 40 MG TAB PO SCH (09:30)
[2021-02-07 12:38] VITALS: BP 140/87
[2021-02-07 16:26] VITALS: BP 151/89
[2021-02-07 22:17] VITALS: BP 116/70
[2021-02-08] MEDS: ZOLPIDEM TARTRATE 5 MG TAB PO SCH (01:02)
[2021-02-08 05:00] VITALS: BP 115/63
[2021-02-08] MEDS: CHOLESTYRAMINE 4 GM POWDER PO SCH ×2 (06:00→12:00)
[2021-02-08 08:48] VITALS: BP 144/81
[2021-02-08] MEDS: LACTATED RINGER'S 1,000 ML IV SCH ×2 (10:50→12:50)
[2021-02-08] MEDS: SODIUM CHLOR 0.9% PF (SALINE LOCK) 10ML VIAL/SYR IV SCH (10:51)
[2021-02-08] MEDS: ENOXAPARIN SOD 40 MG/0.4 ML SYRINGE SC SCH (10:52)
[2021-02-08] MEDS: FLORASTOR (S. BOULARDII) 250 MG CAP PO SCH (10:52)
[2021-02-08] MEDS: PANTOPRAZOLE 40 MG TAB PO SCH (10:52)
[2021-02-08] MEDS: SERTRALINE HCL 50 MG TAB PO SCH (10:53)
[2021-02-08 12:33] VITALS: BP 140/66
[2021-04-11] MEDS ORDERED: ONDA-144 PO (13:48)
[2021-04-12] MEDS ORDERED: VANC125PO PO (13:15)
== END 2021-02-08 14:40 | disposition home or self-care (01) | DRG 391 ==
LOC: EDBD 10:08 → ER 10:08 → TELE 13:42 → TELE-WESTW 18:30
PROVIDERS: ADMIT Nurse Practitioner Acute Care; ATTEND Family Medicine
PROC: 05H933Z Insertion of Infusion Device into Right Brachial Vein, Percutaneous Approach (ICD-10-PCS; 2021-02-04)
PROC: B54MZZA Ultrasonography of Right Upper Extremity Veins, Guidance (ICD-10-PCS; 2021-02-04)
PROC: 3E0436Z Introduction of Nutritional Substance into Central Vein, Percutaneous Approach (ICD-10-PCS; 2021-02-04)
PROC: 0DBE8ZX Excision of Large Intestine, Via Natural or Artificial Opening Endoscopic, Diagnostic (ICD-10-PCS; 2021-02-06)
PROC: 0DBH8ZX Excision of Cecum, Via Natural or Artificial Opening Endoscopic, Diagnostic (ICD-10-PCS; principal; 2021-02-06 08:43)
DX: K52.9 Noninfective gastroenteritis and colitis, unspecified (principal); N17.0 Acute kidney failure with tubular necrosis; E44.1 Mild protein-calorie malnutrition; E86.0 Dehydration; R55 Syncope and collapse; E11.9 Type 2 diabetes mellitus without complications; I10 Essential (primary) hypertension; D12.0 Benign neoplasm of cecum; E78.5 Hyperlipidemia, unspecified; Z20.822 Contact with and (suspected) exposure to COVID-19; K57.90 Diverticulosis of intestine, part unspecified, without perforation or abscess without bleeding; E78.00 Pure hypercholesterolemia, unspecified; Z79.899 Other long term (current) drug therapy; Z80.0 Family history of malignant neoplasm of digestive organs; Z80.3 Family history of malignant neoplasm of breast; Z82.49 Family history of ischemic heart disease and other diseases of the circulatory system; Z86.19 Personal history of other infectious and parasitic diseases; Z90.49 Acquired absence of other specified parts of digestive tract; Z90.710 Acquired absence of both cervix and uterus; Z68.24 Body mass index [BMI] 24.0-24.9, adult
CPT/HCPCS: 36415; 36569; 45380; 71045; 74176; 80053; 81001; 82040; 82962; 83036; 83605; 83735; 84100; 84478; 84484; 85025; 85610; 86850; 86900; 86901; 87040; 87081; 87426; 87493; 93005; 96361; 96365; 96368; 96375; 97110; 97116; 97163; 97530; G0378; J0696; J1815; J2250; J2405; J3490

== ENCOUNTER 2021-04-08 16:00 | Inpatient (IN) | payer MEDICARE, BC ==
[~2021-04-08] VITALS: Ht 170.2 cm; Wt 75.0 kg
[~2021-04-08 16:00] MED LIST changes: +BUSP5TAB51 PO; +LISI-275 PO; +MET25T PO; -ZOLP10TA PO
[2021-04-08] MEDS ORDERED: SODIUM CHLORIDE 0.9% 500 ML IVB ONE (16:15)
[2021-04-08] MEDS ORDERED: MORPHINE SULFATE 4 MG/ML SYR/VIAL IV ONE (16:15)
[2021-04-08] MEDS ORDERED: ONDANSETRON HCL 4 MG/2 ML VIAL IV ONE (16:15)
[2021-04-08 16:39] LABS: Basophils # (auto) 0 10 ^3/uL (0-0.2); Basophils % (auto) 0.4 % (0.0-2.0); Eosinophils # (auto) 0.1 10 ^3/uL (0-0.8); Eosinophils % (auto) 1.2 % (0.0-7.0); Hematocrit 46.7 % (36.0-46.0); Hemoglobin 15.2 g/dL (12.2-16.2); Lymphocytes # (auto) 1.7 10 ^3/uL (0.4-5.4); Lymphocytes % (auto) 16.9 % (10.0-50.0); Mean Corpuscular Hgb Conc. 32.5 g/dL (32.0-36.0); Monocytes # (auto) 0.8 10 ^3/uL (0-1.3); Monocytes % (auto) 8.2 % (0.0-12.0); Neutrophils # (auto) 7.6 10 ^3/uL (1.6-8.6); Neutrophils % (auto) 73.3 % (37.0-80.0); Nucleated Red Blood Cells % 0.1 %; Red Blood Cells 5.24 10^6/uL (4.0-5.20); Red Cell Distribution Width 15.6 % (11.8-14.3); White Blood Cell 10.3 10^3/uL (4.4-10.8)
[2021-04-08 16:51] LABS: Albumin 4.1 g/dL (3.4-5.0); Calcium 9.4 mg/dL (8.5-10.1); Potassium 3.6 mmol/L (3.5-5.1)
[2021-04-08 16:54] LABS: BUN/Creatinine Ratio 18.3; Bilirubin, Total 0.7 mg/dL (0.2-1.0)
[2021-04-08] MEDS ORDERED: metroNIDAZOLE 500MG/100ML 100 ML IV ONE (19:30)
[2021-04-08] MEDS ORDERED: PANTOPRAZOLE 40 MG/10 ML VIAL INJ IV ONE (19:30)
[2021-04-08] MEDS ORDERED: PPN PER PHARMACY 0 ML IV SCH (22:00)
[2021-04-08] MEDS ORDERED: LOPERAMIDE HCL 2 MG CAP PO PRN (22:00)
[2021-04-08] MEDS: metroNIDAZOLE 500MG/100ML 100 ML IV SCH (22:00)
[2021-04-08] MEDS ORDERED: ONDANSETRON HCL 4 MG/2 ML VIAL IV PRN (22:00)
[2021-04-08] MEDS ORDERED: ACETAMINOPHEN 325 MG TAB PO PRN (22:00)
[2021-04-08] MEDS ORDERED: HYDROcodone-ACET 5/325MG TAB PO PRN (22:00)
[2021-04-08] MEDS: CHOLESTYRAMINE 4 GM POWDER PO SCH (23:19)
[2021-04-08] MEDS: AMINO ACID INFUSION IN D10W 1,000 ML IV NR (23:45)
[2021-04-09 04:51] LABS: Basophils # (auto) 0 10 ^3/uL (0-0.2); Basophils % (auto) 0.2 % (0.0-2.0); Eosinophils # (auto) 0 10 ^3/uL (0-0.8); Eosinophils % (auto) 0.4 % (0.0-7.0); Hematocrit 40.6 % (36.0-46.0); Hemoglobin 13.3 g/dL (12.2-16.2); Lymphocytes # (auto) 2.4 10 ^3/uL (0.4-5.4); Mean Corpuscular Hemoglobin 29.1 pg (28.0-32.0); Mean Corpuscular Hgb Conc. 32.7 g/dL (32.0-36.0); Mean Corpuscular Volume 89.1 fL (80.0-100.0); Monocytes # (auto) 1.1 10 ^3/uL (0-1.3); Neutrophils # (auto) 8.5 10 ^3/uL (1.6-8.6); Neutrophils % (auto) 70.4 % (37.0-80.0); Nucleated Red Blood Cells % 0.1 %; Red Blood Cells 4.55 10^6/uL (4.0-5.20); Red Cell Distribution Width 15.7 % (11.8-14.3); White Blood Cell 12.1 10^3/uL (4.4-10.8)
[2021-04-09 05:38] LABS: Albumin 3.3 g/dL (3.4-5.0); Calcium 8.4 mg/dL (8.5-10.1); Magnesium 1.6 mg/dL (1.6-2.6); Potassium 4.2 mmol/L (3.5-5.1)
[2021-04-09 05:45] LABS: Bilirubin, Total 0.4 mg/dL (0.2-1.0); Phosphorus 3.8 mg/dL (2.5-4.90); Pre Albumin 23.2 mg/dL (20.0-40.0); Total Protein 6.7 g/dL (6.4-8.2)
[2021-04-09] MEDS: metroNIDAZOLE 500MG/100ML 100 ML IV SCH ×3 (06:42→21:46)
[2021-04-09] MEDS ORDERED: DEXTROSE (50%) 50ML SYRG IV SCH (08:45)
[2021-04-09] MEDS: cefTRIAXone 1GM/50ML D5W 50 ML IV SCH (08:54)
[2021-04-09] MEDS: PANTOPRAZOLE 40 MG/10 ML VIAL INJ IV SCH (08:54)
[2021-04-09] MEDS: CHOLESTYRAMINE 4 GM POWDER PO SCH (11:09)
[2021-04-09] MEDS ORDERED: InsuLIN REG 1unit/0.01ml Soln (100units/ml) SC SCH (12:00)
[2021-04-09] MEDS ORDERED: ACCU-CHEK COMFORT CURVE STRIP VI SCH (12:00)
[2021-04-09] MEDS: SODIUM CHLORIDE 0.9% 1,000 ML IV SCH (14:45)
[2021-04-09 17:00] VITALS: BP 113/57
[2021-04-09] MEDS ORDERED: TPN PER PHARMACY IV NR ×8 (20:00)
[2021-04-09] MEDS ORDERED: PPN PER PHARMACY IV NR ×8 (20:00)
[2021-04-09 22:00] VITALS: BP 106/61
[2021-04-09] MEDS: AMINO ACID INFUSION IN D10W 1,000 ML IV NR (22:19)
[2021-04-10] MEDS: CHOLESTYRAMINE 4 GM POWDER PO SCH ×3 (01:04→23:00)
[2021-04-10] MEDS ORDERED: TEMAZEPAM 15 MG CAP PO ONE (03:15)
[2021-04-10 05:00] VITALS: BP 112/55
[2021-04-10 06:32] LABS: Basophils # (auto) 0 10 ^3/uL (0-0.2); Basophils % (auto) 0.4 % (0.0-2.0); Eosinophils # (auto) 0.2 10 ^3/uL (0-0.8); Eosinophils % (auto) 2.2 % (0.0-7.0); Hematocrit 37.2 % (36.0-46.0); Hemoglobin 12.2 g/dL (12.2-16.2); Lymphocytes # (auto) 2.4 10 ^3/uL (0.4-5.4); Lymphocytes % (auto) 33.3 % (10.0-50.0); Mean Corpuscular Hemoglobin 29.5 pg (28.0-32.0); Mean Corpuscular Hgb Conc. 32.8 g/dL (32.0-36.0); Monocytes # (auto) 0.6 10 ^3/uL (0-1.3); Neutrophils # (auto) 3.9 10 ^3/uL (1.6-8.6); Neutrophils % (auto) 55.1 % (37.0-80.0); Nucleated Red Blood Cells % 0.1 %; Red Blood Cells 4.13 10^6/uL (4.0-5.20); Red Cell Distribution Width 15.5 % (11.8-14.3); White Blood Cell 7.1 10^3/uL (4.4-10.8)
[2021-04-10] MEDS: metroNIDAZOLE 500MG/100ML 100 ML IV SCH ×3 (06:43→21:12)
[2021-04-10 06:47] LABS: BUN/Creatinine Ratio 21.1; Calcium 8.4 mg/dL (8.5-10.1)
[2021-04-10 09:00] VITALS: BP 109/63
[2021-04-10] MEDS: cefTRIAXone 1GM/50ML D5W 50 ML IV SCH (09:00)
[2021-04-10] MEDS: PANTOPRAZOLE 40 MG/10 ML VIAL INJ IV SCH (10:00)
[2021-04-10] MEDS: SODIUM CHLORIDE 0.9% 1,000 ML IV SCH (10:39)
[2021-04-10 12:40] VITALS: BP 124/65
[2021-04-10 13:30] LABS: Urine Bacteria NONE SEEN /hpf (None Seen); Urine Blood Negative /uL (Negative); Urine WBC 7 /hpf (0 - 5)
[2021-04-10 17:00] VITALS: BP 128/66
[2021-04-10 22:00] VITALS: BP 140/69
[2021-04-11] MEDS: SODIUM CHLORIDE 0.9% 1,000 ML IV SCH (00:05)
[2021-04-11 05:00] VITALS: BP 126/70
[2021-04-11 06:23] LABS: BUN/Creatinine Ratio 24.5; Calcium 8.2 mg/dL (8.5-10.1); Magnesium 1.5 mg/dL (1.6-2.6); Potassium 3.7 mmol/L (3.5-5.1)
[2021-04-11] MEDS: metroNIDAZOLE 500MG/100ML 100 ML IV SCH ×3 (07:10→17:00)
[2021-04-11 09:00] VITALS: BP 138/76
[2021-04-11] MEDS: PANTOPRAZOLE 40 MG/10 ML VIAL INJ IV SCH (09:36)
[2021-04-11] MEDS: cefTRIAXone 1GM/50ML D5W 50 ML IV SCH (09:36)
[2021-04-11] MEDS: CHOLESTYRAMINE 4 GM POWDER PO SCH ×2 (11:00→22:28)
[2021-04-11] MEDS: MAGNESIUM SULFATE 1GM/100ML 100 ML IV SCH ×2 (12:00→13:00)
[2021-04-11 12:49] VITALS: BP 148/76
[2021-04-11] MEDS ORDERED: ONDA-144 PO (13:48)
[2021-04-11] MEDS ORDERED: VANCOMYCIN PER PHARMACY 0 MG IV SCH (16:15)
[2021-04-11 17:00] VITALS: BP 163/87
[2021-04-11] MEDS ORDERED: VANCOMYCIN 1GM/250ML 250 ML IV SCH (17:00)
[2021-04-11] MEDS ORDERED: TEMAZEPAM 15 MG CAP PO ONE (17:15)
[2021-04-11] MEDS: VANCOMYCIN HCL 125MG/5ML ORAL SOL PO SCH ×2 (18:00→22:28)
[2021-04-11 22:00] VITALS: BP 116/72
[2021-04-12 05:00] VITALS: BP 126/77
[2021-04-12] MEDS: metroNIDAZOLE 500MG/100ML 100 ML IV SCH (07:00)
[2021-04-12] MEDS: VANCOMYCIN HCL 125MG/5ML ORAL SOL PO SCH (07:02)
[2021-04-12 09:00] VITALS: BP 135/86
[2021-04-12] MEDS: cefTRIAXone 1GM/50ML D5W 50 ML IV SCH (09:00)
[2021-04-12] MEDS: PANTOPRAZOLE 40 MG/10 ML VIAL INJ IV SCH (10:00)
[2021-04-12] MEDS: CHOLESTYRAMINE 4 GM POWDER PO SCH (11:40)
[2021-04-12 13:00] VITALS: BP 135/76
[2021-04-12] MEDS ORDERED: VANC125PO PO (13:15)
== END 2021-04-12 16:48 | disposition home or self-care (01) | DRG 391 ==
LOC: ER 16:00 → EDBD 16:00 → OVERFLOW 21:56 → WEST WING 04-09 12:34
PROVIDERS: ADMIT Nurse Practitioner; ATTEND Internal Medicine
DX: A08.4 Viral intestinal infection, unspecified (principal); N17.0 Acute kidney failure with tubular necrosis; K86.1 Other chronic pancreatitis; R65.10 Systemic inflammatory response syndrome (SIRS) of non-infectious origin without acute organ dysfunction; A04.72 Enterocolitis due to Clostridium difficile, not specified as recurrent; E86.0 Dehydration; E11.22 Type 2 diabetes mellitus with diabetic chronic kidney disease; N18.31 Chronic kidney disease, stage 3a; I12.9 Hypertensive chronic kidney disease with stage 1 through stage 4 chronic kidney disease, or unspecified chronic kidney disease; E78.5 Hyperlipidemia, unspecified; E87.6 Hypokalemia; F32.9 Major depressive disorder, single episode, unspecified; N28.89 Other specified disorders of kidney and ureter; F41.9 Anxiety disorder, unspecified; K21.9 Gastro-esophageal reflux disease without esophagitis; Z20.822 Contact with and (suspected) exposure to COVID-19; Z79.4 Long term (current) use of insulin; Z79.899 Other long term (current) drug therapy; Z80.0 Family history of malignant neoplasm of digestive organs; Z80.3 Family history of malignant neoplasm of breast; Z82.49 Family history of ischemic heart disease and other diseases of the circulatory system; Z90.49 Acquired absence of other specified parts of digestive tract; Z90.711 Acquired absence of uterus with remaining cervical stump
CPT/HCPCS: 36415; 74176; 76775; 80048; 80053; 81001; 82040; 82150; 83690; 83735; 84100; 84478; 85025; 87045; 87426; 87427; 87493; 93005; 96365; 96366; 96367; 96375; 96376; C9113; G0378; J0696; J2405; J3490

== ENCOUNTER 2021-05-04 17:46 | Inpatient (IN) | payer MEDICARE, BC ==
[~2021-05-04] VITALS: Ht 162.6 cm; Wt 71.2 kg
[~2021-05-04 17:46] MED LIST changes: +VANC125PO PO
[2021-05-04] MEDS ORDERED: SODIUM CHLORIDE 0.9% 1,000 ML IV ONE (18:15)
[2021-05-04] MEDS ORDERED: SODIUM CHLORIDE 0.9% 1,000 ML IVB ONE (18:15)
[2021-05-04 18:36] LABS: Basophils # (auto) 0 10 ^3/uL (0-0.2); Basophils % (auto) 0.4 % (0.0-2.0); Eosinophils # (auto) 0.1 10 ^3/uL (0-0.8); Eosinophils % (auto) 1.1 % (0.0-7.0); Hematocrit 46.8 % (36.0-46.0); Hemoglobin 15.2 g/dL (12.2-16.2); Lymphocytes # (auto) 2.1 10 ^3/uL (0.4-5.4); Lymphocytes % (auto) 20.2 % (10.0-50.0); Mean Corpuscular Hemoglobin 29.3 pg (28.0-32.0); Mean Corpuscular Hgb Conc. 32.5 g/dL (32.0-36.0); Mean Corpuscular Volume 90.1 fL (80.0-100.0); Monocytes # (auto) 0.7 10 ^3/uL (0-1.3); Monocytes % (auto) 6.7 % (0.0-12.0); Neutrophils # (auto) 7.6 10 ^3/uL (1.6-8.6); Neutrophils % (auto) 71.6 % (37.0-80.0); Red Blood Cells 5.19 10^6/uL (4.0-5.20); Red Cell Distribution Width 15.6 % (11.8-14.3); White Blood Cell 10.6 10^3/uL (4.4-10.8)
[2021-05-04 18:51] LABS: Albumin 3.9 g/dL (3.4-5.0); Calcium 9.1 mg/dL (8.5-10.1); Magnesium 2.3 mg/dL (1.6-2.6); Potassium 4.2 mmol/L (3.5-5.1)
[2021-05-04 18:54] LABS: Bilirubin, Total 0.6 mg/dL (0.2-1.0); Total Protein 7.8 g/dL (6.4-8.2)
[2021-05-04 19:02] LABS: BUN/Creatinine Ratio 15.1
[2021-05-04] MEDS ORDERED: MORPHINE SULFATE 4 MG/ML SYR/VIAL IV PRN (23:15)
[2021-05-04] MEDS ORDERED: ACETAMINOPHEN 325 MG TAB PO PRN (23:15)
[2021-05-04] MEDS ORDERED: DEXTROSE (50%) 50ML SYRG IV PRN (23:15)
[2021-05-04] MEDS ORDERED: HYDROcodone-ACET 5/325MG TAB PO PRN (23:15)
[2021-05-05] MEDS ORDERED: NITROGLYCERIN 0.4 MG SL TAB SL PRN (00:30)
[2021-05-05] MEDS ORDERED: MORPHINE SULFATE INJECTION 2 MG/ML SYRG IV PRN (00:30)
[2021-05-05] MEDS: ONDANSETRON HCL 4 MG/2 ML VIAL IV PRN ×3 (00:35→10:28)
[2021-05-05 02:00] VITALS: BP 142/89
[2021-05-05] MEDS: SODIUM CHLORIDE 0.9% 1,000 ML IV SCH ×2 (03:22→15:40)
[2021-05-05] MEDS: InsuLIN REG 1unit/0.01ml Soln (100units/ml) SC SCH ×4 (06:50→21:39)
[2021-05-05] MEDS: VANCOMYCIN HCL 500MG/5ML ORAL SOL PO SCH ×4 (06:52→21:38)
[2021-05-05] MEDS: ACCU-CHEK COMFORT CURVE STRIP VI SCH ×4 (06:52→21:38)
[2021-05-05 08:00] VITALS: BP 132/87
[2021-05-05] MEDS ORDERED: FAMOTIDINE (10MG/ML) 2ML VL IV SCH (10:00)
[2021-05-05] MEDS: HEPARIN SODIUM (PORCINE) 5000 UNITS/ML 1ML VIAL SC SCH ×2 (10:06→21:40)
[2021-05-05 10:58] LABS: Basophils # (auto) 0 10 ^3/uL (0-0.2); Basophils % (auto) 0.1 % (0.0-2.0); Eosinophils # (auto) 0 10 ^3/uL (0-0.8); Eosinophils % (auto) 0.1 % (0.0-7.0); Hematocrit 44.1 % (36.0-46.0); Hemoglobin 14.8 g/dL (12.2-16.2); Lymphocytes # (auto) 1.8 10 ^3/uL (0.4-5.4); Lymphocytes % (auto) 12.7 % (10.0-50.0); Mean Corpuscular Hemoglobin 29.9 pg (28.0-32.0); Mean Corpuscular Hgb Conc. 33.5 g/dL (32.0-36.0); Mean Corpuscular Volume 89.1 fL (80.0-100.0); Monocytes # (auto) 1.1 10 ^3/uL (0-1.3); Monocytes % (auto) 7.8 % (0.0-12.0); Neutrophils % (auto) 79.3 % (37.0-80.0); Red Blood Cells 4.95 10^6/uL (4.0-5.20); Red Cell Distribution Width 15.7 % (11.8-14.3); White Blood Cell 13.8 10^3/uL (4.4-10.8)
[2021-05-05 11:18] LABS: Albumin 3.6 g/dL (3.4-5.0); Calcium 8.5 mg/dL (8.5-10.1); Potassium 3.6 mmol/L (3.5-5.1)
[2021-05-05 11:21] LABS: BUN/Creatinine Ratio 19.3; Bilirubin, Total 0.4 mg/dL (0.2-1.0); Total Protein 7.3 g/dL (6.4-8.2)
[2021-05-05 12:00] VITALS: BP 111/65
[2021-05-05] MEDS ORDERED: ZOLPIDEM TARTRATE 5 MG TAB PO PRN (13:30)
[2021-05-05 16:00] VITALS: BP 133/71
[2021-05-05 22:00] VITALS: BP 113/56
[2021-05-05] MEDS ORDERED: InsuLIN REG 1unit/0.01ml Soln (100units/ml) SC SCH (22:00)
[2021-05-06 05:00] VITALS: BP 101/62
[2021-05-06] MEDS: VANCOMYCIN HCL 500MG/5ML ORAL SOL PO SCH (05:18)
[2021-05-06] MEDS: ACCU-CHEK COMFORT CURVE STRIP VI SCH ×2 (06:28→11:57)
[2021-05-06] MEDS: SODIUM CHLORIDE 0.9% 1,000 ML IV SCH (08:35)
[2021-05-06 09:00] VITALS: BP 152/80
[2021-05-06] MEDS: HEPARIN SODIUM (PORCINE) 5000 UNITS/ML 1ML VIAL SC SCH (09:39)
[2021-05-06] MEDS: InsuLIN REG 1unit/0.01ml Soln (100units/ml) SC SCH (11:30)
[2021-05-06 13:00] VITALS: BP 143/66
== END 2021-05-06 17:03 | disposition home or self-care (01) | DRG 371 ==
LOC: ER 17:48 → TELE 05-05 00:16 → TELE-WESTW 05-05 01:56
PROVIDERS: ADMIT Nurse Practitioner Family; ATTEND Internal Medicine
DX: A04.72 Enterocolitis due to Clostridium difficile, not specified as recurrent (principal); N17.0 Acute kidney failure with tubular necrosis; E11.21 Type 2 diabetes mellitus with diabetic nephropathy; E78.5 Hyperlipidemia, unspecified; I10 Essential (primary) hypertension; E11.65 Type 2 diabetes mellitus with hyperglycemia; Z20.822 Contact with and (suspected) exposure to COVID-19; N28.89 Other specified disorders of kidney and ureter; Z80.0 Family history of malignant neoplasm of digestive organs; Z80.3 Family history of malignant neoplasm of breast; Z90.711 Acquired absence of uterus with remaining cervical stump; Z90.49 Acquired absence of other specified parts of digestive tract; Z90.710 Acquired absence of both cervix and uterus
CPT/HCPCS: 36415; 71046; 74176; 80053; 82962; 83036; 83690; 83735; 85025; 87426; 96360; G0378; J1815; J2405; J3490

== ENCOUNTER 2021-05-08 22:21 | Inpatient (IN) | payer MEDICARE, BC ==
[~2021-05-08] VITALS: Ht 154.9 cm; Wt 73.0 kg
[2021-05-08] MEDS ORDERED: SODIUM CHLORIDE 0.9% 2,000 ML IV ONE (23:00)
[2021-05-08] MEDS ORDERED: VANCOMYCIN HCL 500MG/5ML ORAL SOL PO ONE (23:00)
[2021-05-08 23:24] LABS: Basophils # (auto) 0.1 10 ^3/uL (0-0.2); Basophils % (auto) 0.4 % (0.0-2.0); Eosinophils # (auto) 0 10 ^3/uL (0-0.8); Eosinophils % (auto) 0.2 % (0.0-7.0); Hematocrit 51.2 % (36.0-46.0); Hemoglobin 16.8 g/dL (12.2-16.2); Lymphocytes # (auto) 2.2 10 ^3/uL (0.4-5.4); Lymphocytes % (auto) 14.3 % (10.0-50.0); Mean Corpuscular Hgb Conc. 32.9 g/dL (32.0-36.0); Mean Corpuscular Volume 88.3 fL (80.0-100.0); Monocytes # (auto) 1.2 10 ^3/uL (0-1.3); Monocytes % (auto) 7.6 % (0.0-12.0); Neutrophils % (auto) 77.5 % (37.0-80.0); Red Cell Distribution Width 15.7 % (11.8-14.3); White Blood Cell 15.4 10^3/uL (4.4-10.8)
[2021-05-08 23:41] LABS: Albumin 4.3 g/dL (3.4-5.0); Calcium 9.2 mg/dL (8.5-10.1); Magnesium 2.1 mg/dL (1.6-2.6); Potassium 3.1 mmol/L (3.5-5.1)
[2021-05-08 23:47] LABS: BUN/Creatinine Ratio 14.4; Bilirubin, Total 0.7 mg/dL (0.2-1.0); Total Protein 8.6 g/dL (6.4-8.2)
[2021-05-09] MEDS ORDERED: POTASSIUM EFFERVESENT TAB 25 MEQ PO ONE (03:30)
[2021-05-09] MEDS ORDERED: DEXTROSE (50%) 50ML SYRG IV PRN (04:00)
[2021-05-09] MEDS ORDERED: MORPHINE SULFATE 4 MG/ML SYR/VIAL IV ONE (04:00)
[2021-05-09] MEDS ORDERED: ACETAMINOPHEN 325 MG TAB PO PRN (04:00)
[2021-05-09] MEDS ORDERED: HYDROcodone-ACET 5/325MG TAB PO PRN (04:00)
[2021-05-09] MEDS: ONDANSETRON HCL 4 MG/2 ML VIAL IV PRN ×2 (04:29→11:40)
[2021-05-09] MEDS: SODIUM CHLORIDE 0.9% 1,000 ML IV SCH ×2 (04:30→16:24)
[2021-05-09] MEDS: metroNIDAZOLE 500MG/100ML 100 ML IV SCH ×3 (04:31→21:50)
[2021-05-09] MEDS: ACCU-CHEK COMFORT CURVE STRIP VI SCH ×4 (05:52→23:30)
[2021-05-09] MEDS: InsuLIN REG 1unit/0.01ml Soln (100units/ml) SC SCH ×4 (06:05→23:29)
[2021-05-09 07:50] VITALS: BP_SYST 130; BP_DIAS 71; BP_DIAS 72
[2021-05-09] MEDS: PANTOPRAZOLE 40 MG/10 ML VIAL INJ IV SCH (10:48)
[2021-05-09] MEDS: HEPARIN SODIUM (PORCINE) 5000 UNITS/ML 1ML VIAL SC SCH ×2 (10:49→21:49)
[2021-05-09 13:00] VITALS: BP 133/74
[2021-05-09 13:32] LABS: Basophils # (auto) 0.1 10 ^3/uL (0-0.2); Basophils % (auto) 0.6 % (0.0-2.0); Eosinophils # (auto) 0 10 ^3/uL (0-0.8); Eosinophils % (auto) 0.2 % (0.0-7.0); Hematocrit 45.3 % (36.0-46.0); Lymphocytes # (auto) 2.6 10 ^3/uL (0.4-5.4); Mean Corpuscular Hemoglobin 29.7 pg (28.0-32.0); Mean Corpuscular Hgb Conc. 33.1 g/dL (32.0-36.0); Mean Corpuscular Volume 89.7 fL (80.0-100.0); Monocytes # (auto) 1.7 10 ^3/uL (0-1.3); Monocytes % (auto) 9.2 % (0.0-12.0); Neutrophils # (auto) 14.1 10 ^3/uL (1.6-8.6); Nucleated Red Blood Cells % 0.1 %; Red Blood Cells 5.05 10^6/uL (4.0-5.20); Red Cell Distribution Width 15.9 % (11.8-14.3); White Blood Cell 18.5 10^3/uL (4.4-10.8)
[2021-05-09 13:48] LABS: BUN/Creatinine Ratio 15.4; Potassium 4.5 mmol/L (3.5-5.1)
[2021-05-09 17:00] VITALS: BP 117/76
[2021-05-09 22:00] VITALS: BP 130/77
[2021-05-09] MEDS ORDERED: ZOLPIDEM TARTRATE 5 MG TAB PO SCH (22:00)
[2021-05-10 00:05] LABS: Urine Bacteria FEW /hpf (None Seen); Urine Blood Negative /uL (Negative); Urine Hyaline Cast MOD /lpf (0 - 2); Urine Mucus FEW (None Seen); Urine Specific Gravity 1.021 (1.001-1.035); Urine WBC 13 /hpf (0 - 5)
[2021-05-10 04:59] VITALS: BP 121/74
[2021-05-10] MEDS: metroNIDAZOLE 500MG/100ML 100 ML IV SCH ×2 (05:39→14:40)
[2021-05-10] MEDS: InsuLIN REG 1unit/0.01ml Soln (100units/ml) SC SCH ×4 (05:44→23:10)
[2021-05-10] MEDS: ACCU-CHEK COMFORT CURVE STRIP VI SCH ×4 (05:44→23:09)
[2021-05-10 06:14] LABS: Basophils # (auto) 0 10 ^3/uL (0-0.2); Basophils % (auto) 0.2 % (0.0-2.0); Eosinophils # (auto) 0.1 10 ^3/uL (0-0.8); Eosinophils % (auto) 0.8 % (0.0-7.0); Hematocrit 39.5 % (36.0-46.0); Hemoglobin 12.8 g/dL (12.2-16.2); Lymphocytes # (auto) 2.6 10 ^3/uL (0.4-5.4); Lymphocytes % (auto) 21.3 % (10.0-50.0); Mean Corpuscular Hgb Conc. 32.4 g/dL (32.0-36.0); Mean Corpuscular Volume 89.6 fL (80.0-100.0); Monocytes # (auto) 1.2 10 ^3/uL (0-1.3); Monocytes % (auto) 9.7 % (0.0-12.0); Neutrophils # (auto) 8.2 10 ^3/uL (1.6-8.6); Red Blood Cells 4.41 10^6/uL (4.0-5.20); Red Cell Distribution Width 15.7 % (11.8-14.3); White Blood Cell 12.1 10^3/uL (4.4-10.8)
[2021-05-10 06:27] LABS: Potassium 3.6 mmol/L (3.5-5.1)
[2021-05-10 06:42] LABS: Albumin 2.9 g/dL (3.4-5.0); BUN/Creatinine Ratio 20.6; Bilirubin, Total 0.5 mg/dL (0.2-1.0); Total Protein 5.8 g/dL (6.4-8.2)
[2021-05-10 08:52] VITALS: BP 114/77
[2021-05-10] MEDS: HEPARIN SODIUM (PORCINE) 5000 UNITS/ML 1ML VIAL SC SCH ×2 (09:46→23:01)
[2021-05-10] MEDS: PANTOPRAZOLE 40 MG/10 ML VIAL INJ IV SCH (09:46)
[2021-05-10] MEDS: SODIUM CHLORIDE 0.9% 1,000 ML IV SCH ×3 (09:50→23:52)
[2021-05-10 13:00] VITALS: BP 140/65
[2021-05-10 16:27] VITALS: BP 98/56
[2021-05-10] MEDS: ONDANSETRON HCL 4 MG/2 ML VIAL IV PRN (16:42)
[2021-05-10] MEDS: PANCREATIC ENZYMES 4200 UNIT CAP PO SCH (18:39)
[2021-05-10 22:00] VITALS: BP 109/66
[2021-05-10] MEDS: ZOLPIDEM TARTRATE 5 MG TAB PO PRN (23:01)
[2021-05-11 05:00] VITALS: BP 102/68
[2021-05-11] MEDS: InsuLIN REG 1unit/0.01ml Soln (100units/ml) SC SCH (06:00)
[2021-05-11] MEDS: ACCU-CHEK COMFORT CURVE STRIP VI SCH (06:05)
[2021-05-11 07:58] LABS: BUN/Creatinine Ratio 18.4; Potassium 3.6 mmol/L (3.5-5.1)
[2021-05-11] MEDS: PANCREATIC ENZYMES 4200 UNIT CAP PO SCH ×3 (08:59→17:44)
[2021-05-11] MEDS: PANTOPRAZOLE 40 MG/10 ML VIAL INJ IV SCH (08:59)
[2021-05-11] MEDS: SERTRALINE HCL 50 MG TAB PO SCH (08:59)
[2021-05-11 09:00] VITALS: BP 128/68
[2021-05-11] MEDS: HEPARIN SODIUM (PORCINE) 5000 UNITS/ML 1ML VIAL SC SCH ×2 (09:00→22:16)
[2021-05-11] MEDS ORDERED: CHOLESTYRAMINE 4 GM POWDER PO ONE (11:45)
[2021-05-11 13:00] VITALS: BP 132/74
[2021-05-11 17:00] VITALS: BP 141/83
[2021-05-11 22:00] VITALS: BP 139/71
[2021-05-11] MEDS: SUCRALFATE 1 GM/10 ML ORAL SUSP PO SCH (22:07)
[2021-05-12] MEDS: ZOLPIDEM TARTRATE 5 MG TAB PO PRN (00:07)
[2021-05-12] MEDS: SODIUM CHLORIDE 0.9% 1,000 ML IV SCH ×2 (00:07→12:10)
[2021-05-12 05:00] VITALS: BP 126/71
[2021-05-12 05:34] LABS: Basophils # (auto) 0 10 ^3/uL (0-0.2); Basophils % (auto) 0.4 % (0.0-2.0); Eosinophils # (auto) 0.2 10 ^3/uL (0-0.8); Eosinophils % (auto) 2.4 % (0.0-7.0); Hematocrit 35.7 % (36.0-46.0); Hemoglobin 11.7 g/dL (12.2-16.2); Lymphocytes # (auto) 2.3 10 ^3/uL (0.4-5.4); Lymphocytes % (auto) 32.6 % (10.0-50.0); Mean Corpuscular Hemoglobin 29.3 pg (28.0-32.0); Mean Corpuscular Hgb Conc. 32.7 g/dL (32.0-36.0); Mean Corpuscular Volume 89.5 fL (80.0-100.0); Monocytes # (auto) 0.7 10 ^3/uL (0-1.3); Monocytes % (auto) 9.3 % (0.0-12.0); Neutrophils # (auto) 3.9 10 ^3/uL (1.6-8.6); Neutrophils % (auto) 55.3 % (37.0-80.0); Red Blood Cells 3.98 10^6/uL (4.0-5.20); Red Cell Distribution Width 15.3 % (11.8-14.3)
[2021-05-12 05:57] LABS: Calcium 7.9 mg/dL (8.5-10.1); Magnesium 1.5 mg/dL (1.6-2.6)
[2021-05-12] MEDS: SUCRALFATE 1 GM/10 ML ORAL SUSP PO SCH ×4 (07:41→21:30)
[2021-05-12] MEDS: ONDANSETRON HCL 4 MG/2 ML VIAL IV PRN (08:27)
[2021-05-12] MEDS: PANTOPRAZOLE 40 MG/10 ML VIAL INJ IV SCH (08:28)
[2021-05-12] MEDS: SERTRALINE HCL 50 MG TAB PO SCH (08:28)
[2021-05-12] MEDS: PANCREATIC ENZYMES 4200 UNIT CAP PO SCH ×3 (08:30→17:22)
[2021-05-12] MEDS: HEPARIN SODIUM (PORCINE) 5000 UNITS/ML 1ML VIAL SC SCH ×2 (08:38→21:38)
[2021-05-12 09:00] VITALS: BP 135/72
[2021-05-12] MEDS: MAGNESIUM SULFATE 1GM/100ML 100 ML IV SCH ×2 (11:54→12:17)
[2021-05-12] MEDS: CHOLESTYRAMINE 4 GM POWDER PO SCH (11:55)
[2021-05-12 13:00] VITALS: BP 132/69
[2021-05-12 17:00] VITALS: BP 141/69
[2021-05-12 22:00] VITALS: BP 132/72
[2021-05-13] MEDS: ZOLPIDEM TARTRATE 5 MG TAB PO PRN (00:16)
[2021-05-13] MEDS: SODIUM CHLORIDE 0.9% 1,000 ML IV SCH ×2 (00:51→04:12)
[2021-05-13 05:00] VITALS: BP 141/75
[2021-05-13] MEDS: SUCRALFATE 1 GM/10 ML ORAL SUSP PO SCH ×2 (06:04→10:12)
[2021-05-13 06:18] LABS: Basophils # (auto) 0 10 ^3/uL (0-0.2); Basophils % (auto) 0.5 % (0.0-2.0); Eosinophils # (auto) 0.2 10 ^3/uL (0-0.8); Eosinophils % (auto) 3.1 % (0.0-7.0); Hematocrit 36.3 % (36.0-46.0); Hemoglobin 11.8 g/dL (12.2-16.2); Lymphocytes # (auto) 2.4 10 ^3/uL (0.4-5.4); Lymphocytes % (auto) 33.4 % (10.0-50.0); Mean Corpuscular Hemoglobin 29.1 pg (28.0-32.0); Mean Corpuscular Hgb Conc. 32.5 g/dL (32.0-36.0); Mean Corpuscular Volume 89.4 fL (80.0-100.0); Monocytes # (auto) 0.7 10 ^3/uL (0-1.3); Monocytes % (auto) 9.5 % (0.0-12.0); Neutrophils # (auto) 3.8 10 ^3/uL (1.6-8.6); Neutrophils % (auto) 53.5 % (37.0-80.0); Red Blood Cells 4.05 10^6/uL (4.0-5.20); Red Cell Distribution Width 15.3 % (11.8-14.3); White Blood Cell 7.1 10^3/uL (4.4-10.8)
[2021-05-13 06:19] LABS: Calcium 8.2 mg/dL (8.5-10.1); Magnesium 1.8 mg/dL (1.6-2.6); Potassium 3.9 mmol/L (3.5-5.1)
[2021-05-13 06:21] LABS: BUN/Creatinine Ratio 12.4
[2021-05-13] MEDS: PANTOPRAZOLE 40 MG/10 ML VIAL INJ IV SCH (08:05)
[2021-05-13] MEDS: SERTRALINE HCL 50 MG TAB PO SCH (08:05)
[2021-05-13] MEDS: PANCREATIC ENZYMES 4200 UNIT CAP PO SCH ×2 (08:05→11:10)
[2021-05-13] MEDS: HEPARIN SODIUM (PORCINE) 5000 UNITS/ML 1ML VIAL SC SCH (08:08)
[2021-05-13 09:00] VITALS: BP 124/58
[2021-05-13] MEDS: CHOLESTYRAMINE 4 GM POWDER PO SCH (10:11)
[2021-05-13 10:44] VITALS: BP 124/58
[2021-05-13 13:00] VITALS: BP 154/82
== END 2021-05-13 13:25 | disposition home health service (06) | DRG 640 ==
LOC: EDUNIT# 22:21 → EDBD 22:21 → ER 22:26 → OVERFLOW 05-09 03:57 → CENTRAL 05-09 08:24
PROVIDERS: ADMIT Nurse Practitioner; ATTEND Internal Medicine
DX: E86.0 Dehydration (principal); N17.0 Acute kidney failure with tubular necrosis; K57.32 Diverticulitis of large intestine without perforation or abscess without bleeding; K86.1 Other chronic pancreatitis; R11.2 Nausea with vomiting, unspecified; E87.8 Other disorders of electrolyte and fluid balance, not elsewhere classified; E87.6 Hypokalemia; E11.22 Type 2 diabetes mellitus with diabetic chronic kidney disease; E78.5 Hyperlipidemia, unspecified; F32.A Depression, unspecified; F41.9 Anxiety disorder, unspecified; G62.9 Polyneuropathy, unspecified; I12.9 Hypertensive chronic kidney disease with stage 1 through stage 4 chronic kidney disease, or unspecified chronic kidney disease; K21.9 Gastro-esophageal reflux disease without esophagitis; K58.9 Irritable bowel syndrome, unspecified; N18.30 Chronic kidney disease, stage 3 unspecified; Z80.3 Family history of malignant neoplasm of breast; Z82.49 Family history of ischemic heart disease and other diseases of the circulatory system; Z90.49 Acquired absence of other specified parts of digestive tract; Z90.710 Acquired absence of both cervix and uterus; Z80.0 Family history of malignant neoplasm of digestive organs; Z20.822 Contact with and (suspected) exposure to COVID-19
CPT/HCPCS: 36415; 76775; 80048; 80053; 81001; 82150; 82962; 83605; 83690; 83735; 84484; 85025; 87045; 87081; 87086; 87426; 87427; 87493; 93005; 96361; 96374; C9113; G0378; J1815; J2405; J3490

== ENCOUNTER 2021-07-11 15:44 | Inpatient (IN) | payer MEDICARE, BC ==
[~2021-07-11] VITALS: Ht 160 cm; Wt 70.1 kg
[~2021-07-11 15:44] MED LIST changes: -BUSP5TAB51 PO; -CHL4PW PO; -LISI-275 PO; -MET25T PO; -ONDA-144 PO; -VANC125PO PO
[2021-07-11] MEDS ORDERED: SODIUM CHLORIDE 0.9% 500 ML IVB ONE (17:15)
[2021-07-11 17:25] LABS: Basophils # (auto) 0 10 ^3/uL (0-0.2); Basophils % (auto) 0.2 % (0.0-2.0); Eosinophils # (auto) 0 10 ^3/uL (0-0.8); Hematocrit 42.3 % (36.0-46.0); Hemoglobin 13.9 g/dL (12.2-16.2); Lymphocytes # (auto) 1.7 10 ^3/uL (0.4-5.4); Lymphocytes % (auto) 8.3 % (10.0-50.0); Mean Corpuscular Hemoglobin 28.9 pg (28.0-32.0); Mean Corpuscular Hgb Conc. 32.8 g/dL (32.0-36.0); Mean Corpuscular Volume 88.2 fL (80.0-100.0); Monocytes # (auto) 1.1 10 ^3/uL (0-1.3); Monocytes % (auto) 5.5 % (0.0-12.0); Neutrophils # (auto) 17.7 10 ^3/uL (1.6-8.6); Nucleated Red Blood Cells % 0.1 %; Red Cell Distribution Width 14.7 % (11.8-14.3); White Blood Cell 20.6 10^3/uL (4.4-10.8)
[2021-07-11 17:38] LABS: Albumin 3.3 g/dL (3.4-5.0); BUN/Creatinine Ratio 23.8; Potassium 3.3 mmol/L (3.5-5.1)
[2021-07-11 17:47] LABS: Bilirubin, Total 0.5 mg/dL (0.2-1.0); Total Protein 6.3 g/dL (6.4-8.2)
[2021-07-11] MEDS ORDERED: HYDROcodone-ACET 5/325MG TAB PO PRN (22:15)
[2021-07-11] MEDS ORDERED: MORPHINE SULFATE 4 MG/ML SYR/VIAL IV PRN (22:15)
[2021-07-11] MEDS ORDERED: DEXTROSE (50%) 50ML SYRG IV PRN (22:15)
[2021-07-11] MEDS ORDERED: ACETAMINOPHEN 325 MG TAB PO PRN (22:15)
[2021-07-11] MEDS ORDERED: SODIUM CHLORIDE 0.9% 1,000 ML IV SCH (22:15)
[2021-07-11] MEDS ORDERED: ONDANSETRON HCL 4 MG/2 ML VIAL ONE (22:25)
[2021-07-11] MEDS ORDERED: hydrALAZINE HCL 20 MG/ML VL IV PRN (22:30)
[2021-07-11] MEDS: ONDANSETRON HCL 4 MG/2 ML VIAL IV PRN (23:07)
[2021-07-11] MEDS: POTASSIUM CHL 20MEQ/50ML 50 ML IV SCH (23:31)
[2021-07-12] VITALS (7 sets, daily range): BP systolic 116–153; BP diastolic 48–73
[2021-07-12] MEDS ORDERED: MORPHINE SULFATE INJECTION 2 MG/ML SYRG IV PRN
[2021-07-12] MEDS ORDERED: NITROGLYCERIN 0.4 MG SL TAB SL PRN
[2021-07-12] MEDS: POTASSIUM CHL 20MEQ/50ML 50 ML IV SCH (00:44)
[2021-07-12] MEDS: metroNIDAZOLE 500MG/100ML 100 ML IV SCH ×3 (02:52→23:51)
[2021-07-12] MEDS: ONDANSETRON HCL 4 MG/2 ML VIAL IV PRN ×3 (04:37→18:34)
[2021-07-12] MEDS: VANCOMYCIN HCL 125MG/5ML ORAL SOL PO SCH ×4 (06:00→23:52)
[2021-07-12] MEDS: InsuLIN REG 1unit/0.01ml Soln (100units/ml) SC SCH ×4 (06:33→22:00)
[2021-07-12] MEDS: ACCU-CHEK COMFORT CURVE STRIP VI SCH ×4 (07:00→22:00)
[2021-07-12 08:01] LABS: Basophils # (auto) 0 10 ^3/uL (0-0.2); Basophils % (auto) 0.2 % (0.0-2.0); Eosinophils # (auto) 0 10 ^3/uL (0-0.8); Eosinophils % (auto) 0.1 % (0.0-7.0); Hematocrit 37.7 % (36.0-46.0); Hemoglobin 12.4 g/dL (12.2-16.2); Lymphocytes # (auto) 2.3 10 ^3/uL (0.4-5.4); Lymphocytes % (auto) 11.3 % (10.0-50.0); Mean Corpuscular Hemoglobin 29.4 pg (28.0-32.0); Mean Corpuscular Volume 89.1 fL (80.0-100.0); Monocytes # (auto) 1.5 10 ^3/uL (0-1.3); Monocytes % (auto) 7.7 % (0.0-12.0); Neutrophils # (auto) 16.1 10 ^3/uL (1.6-8.6); Neutrophils % (auto) 80.7 % (37.0-80.0); Red Blood Cells 4.23 10^6/uL (4.0-5.20); Red Cell Distribution Width 14.7 % (11.8-14.3); White Blood Cell 19.9 10^3/uL (4.4-10.8)
[2021-07-12 08:21] LABS: Potassium 3.4 mmol/L (3.5-5.1)
[2021-07-12 08:41] LABS: Albumin 2.8 g/dL (3.4-5.0); BUN/Creatinine Ratio 22.6; Bilirubin, Total 0.6 mg/dL (0.2-1.0); Calcium 7.8 mg/dL (8.5-10.1); Total Protein 5.8 g/dL (6.4-8.2)
[2021-07-12] MEDS: FAMOTIDINE (10MG/ML) 2ML VL IV SCH (09:02)
[2021-07-12] MEDS: ASPirin 81 mg TAB PO SCH (09:04)
[2021-07-12] MEDS: ZINC SULFATE 220mg CAP or TAB PO SCH (09:04)
[2021-07-12] MEDS: ASCORBIC ACID 500 MG TAB PO SCH ×2 (09:04→23:52)
[2021-07-12] MEDS: MULTIPLE VITAMIN TAB PO SCH (09:05)
[2021-07-12] MEDS: HEPARIN SODIUM (PORCINE) 5000 UNITS/ML 1ML VIAL SC SCH ×2 (09:20→23:53)
[2021-07-12] MEDS ORDERED: VANCOMYCIN 1GM/250ML 250 ML IV ONE (11:45)
[2021-07-12] MEDS ORDERED: VANCOMYCIN PER PHARMACY 0 MG IV SCH (11:45)
[2021-07-12] MEDS: SODIUM CHLORIDE 0.9% 1,000 ML IV SCH ×2 (11:45→19:45)
[2021-07-13] VITALS (7 sets, daily range): BP systolic 95–145; BP diastolic 39–49
[2021-07-13] MEDS ORDERED: VANCOMYCIN 1GM/250ML 250 ML IV SCH
[2021-07-13] MEDS: ZOLPIDEM TARTRATE 5 MG TAB PO PRN (01:01)
[2021-07-13] MEDS: SODIUM CHLORIDE 0.9% 1,000 ML IV SCH ×3 (03:45→22:45)
[2021-07-13] MEDS: InsuLIN REG 1unit/0.01ml Soln (100units/ml) SC SCH ×4 (05:35→22:00)
[2021-07-13] MEDS: metroNIDAZOLE 500MG/100ML 100 ML IV SCH (05:35)
[2021-07-13] MEDS: ACCU-CHEK COMFORT CURVE STRIP VI SCH ×4 (05:35→22:42)
[2021-07-13] MEDS: VANCOMYCIN HCL 125MG/5ML ORAL SOL PO SCH (05:35)
[2021-07-13 05:42] LABS: Basophils # (auto) 0 10 ^3/uL (0-0.2); Basophils % (auto) 0.4 % (0.0-2.0); Eosinophils # (auto) 0.1 10 ^3/uL (0-0.8); Eosinophils % (auto) 1.5 % (0.0-7.0); Hematocrit 32.8 % (36.0-46.0); Lymphocytes # (auto) 2.2 10 ^3/uL (0.4-5.4); Lymphocytes % (auto) 22.6 % (10.0-50.0); Mean Corpuscular Hemoglobin 29.8 pg (28.0-32.0); Mean Corpuscular Hgb Conc. 33.5 g/dL (32.0-36.0); Monocytes # (auto) 0.9 10 ^3/uL (0-1.3); Monocytes % (auto) 9.1 % (0.0-12.0); Neutrophils # (auto) 6.4 10 ^3/uL (1.6-8.6); Neutrophils % (auto) 66.4 % (37.0-80.0); Red Blood Cells 3.69 10^6/uL (4.0-5.20); Red Cell Distribution Width 14.6 % (11.8-14.3); White Blood Cell 9.6 10^3/uL (4.4-10.8)
[2021-07-13] MEDS: ASCORBIC ACID 500 MG TAB PO SCH ×2 (10:00→21:54)
[2021-07-13] MEDS: MULTIPLE VITAMIN TAB PO SCH (10:00)
[2021-07-13] MEDS: ASPirin 81 mg TAB PO SCH (10:00)
[2021-07-13] MEDS: ZINC SULFATE 220mg CAP or TAB PO SCH (10:00)
[2021-07-13] MEDS: FAMOTIDINE (10MG/ML) 2ML VL IV SCH (10:00)
[2021-07-13] MEDS: HEPARIN SODIUM (PORCINE) 5000 UNITS/ML 1ML VIAL SC SCH ×2 (10:00→21:54)
[2021-07-13] MEDS: PANTOPRAZOLE 40 MG TAB PO SCH (21:56)
[2021-07-14] MEDS: ZOLPIDEM TARTRATE 5 MG TAB PO PRN ×2 (00:45→22:26)
[2021-07-14 05:00] VITALS: BP 140/63
[2021-07-14 05:16] LABS: Basophils # (auto) 0 10 ^3/uL (0-0.2); Basophils % (auto) 0.6 % (0.0-2.0); Eosinophils # (auto) 0.2 10 ^3/uL (0-0.8); Eosinophils % (auto) 2.4 % (0.0-7.0); Hematocrit 32.8 % (36.0-46.0); Hemoglobin 10.7 g/dL (12.2-16.2); Lymphocytes # (auto) 1.8 10 ^3/uL (0.4-5.4); Lymphocytes % (auto) 26.8 % (10.0-50.0); Mean Corpuscular Hemoglobin 29.1 pg (28.0-32.0); Mean Corpuscular Hgb Conc. 32.6 g/dL (32.0-36.0); Mean Corpuscular Volume 89.2 fL (80.0-100.0); Monocytes # (auto) 0.5 10 ^3/uL (0-1.3); Neutrophils # (auto) 4.3 10 ^3/uL (1.6-8.6); Neutrophils % (auto) 62.2 % (37.0-80.0); Red Blood Cells 3.68 10^6/uL (4.0-5.20); Red Cell Distribution Width 14.5 % (11.8-14.3); White Blood Cell 6.9 10^3/uL (4.4-10.8)
[2021-07-14] MEDS: SODIUM CHLORIDE 0.9% 1,000 ML IV SCH ×3 (06:00→19:45)
[2021-07-14] MEDS: InsuLIN REG 1unit/0.01ml Soln (100units/ml) SC SCH ×4 (06:51→22:00)
[2021-07-14] MEDS: ACCU-CHEK COMFORT CURVE STRIP VI SCH ×4 (06:51→22:06)
[2021-07-14] MEDS: PANTOPRAZOLE 40 MG TAB PO SCH (08:00)
[2021-07-14 08:53] VITALS: BP 123/54
[2021-07-14] MEDS: ZINC SULFATE 220mg CAP or TAB PO SCH (10:00)
[2021-07-14] MEDS ORDERED: FECAL MICROBIOTA TRANSPLANTATION 30mL SUSPENSION NG ONE (10:00)
[2021-07-14] MEDS: ASPirin 81 mg TAB PO SCH (10:00)
[2021-07-14] MEDS: MULTIPLE VITAMIN TAB PO SCH (10:00)
[2021-07-14] MEDS: HEPARIN SODIUM (PORCINE) 5000 UNITS/ML 1ML VIAL SC SCH ×2 (10:00→21:42)
[2021-07-14] MEDS: ASCORBIC ACID 500 MG TAB PO SCH ×2 (10:00→21:41)
[2021-07-14] MEDS ORDERED: PANTOPRAZOLE 40 MG TAB PO ONE (11:45)
[2021-07-14 13:00] VITALS: BP 131/66
[2021-07-14 17:00] VITALS: BP 137/67
[2021-07-14 22:00] VITALS: BP 137/70
[2021-07-15] MEDS: SODIUM CHLORIDE 0.9% 1,000 ML IV SCH ×3 (04:54→18:10)
[2021-07-15 05:00] VITALS: BP 143/56
[2021-07-15] MEDS: InsuLIN REG 1unit/0.01ml Soln (100units/ml) SC SCH ×4 (07:00→21:40)
[2021-07-15] MEDS: ACCU-CHEK COMFORT CURVE STRIP VI SCH ×4 (07:00→21:41)
[2021-07-15 08:42] VITALS: BP 87/50
[2021-07-15 09:15] VITALS: BP 127/70
[2021-07-15] MEDS: MULTIPLE VITAMIN TAB PO SCH (09:45)
[2021-07-15] MEDS: ASCORBIC ACID 500 MG TAB PO SCH ×2 (09:45→21:44)
[2021-07-15] MEDS: ASPirin 81 mg TAB PO SCH (09:45)
[2021-07-15] MEDS: ZINC SULFATE 220mg CAP or TAB PO SCH (09:46)
[2021-07-15] MEDS: HEPARIN SODIUM (PORCINE) 5000 UNITS/ML 1ML VIAL SC SCH ×2 (09:48→21:43)
[2021-07-15 13:00] VITALS: BP 141/72
[2021-07-15 16:57] VITALS: BP 134/71
[2021-07-15] MEDS: ZOLPIDEM TARTRATE 5 MG TAB PO PRN (21:44)
[2021-07-15 22:02] VITALS: BP 134/74
[2021-07-16] MEDS: SODIUM CHLORIDE 0.9% 1,000 ML IV SCH ×3 (03:44→19:45)
[2021-07-16 05:14] VITALS: BP 128/66
[2021-07-16] MEDS: ACCU-CHEK COMFORT CURVE STRIP VI SCH ×4 (06:10→21:33)
[2021-07-16] MEDS: InsuLIN REG 1unit/0.01ml Soln (100units/ml) SC SCH ×4 (06:10→21:33)
[2021-07-16 09:00] VITALS: BP 128/60
[2021-07-16] MEDS: ASCORBIC ACID 500 MG TAB PO SCH ×2 (09:17→21:40)
[2021-07-16] MEDS: HEPARIN SODIUM (PORCINE) 5000 UNITS/ML 1ML VIAL SC SCH ×2 (09:17→21:40)
[2021-07-16] MEDS: ASPirin 81 mg TAB PO SCH (09:17)
[2021-07-16] MEDS: MULTIPLE VITAMIN TAB PO SCH (09:17)
[2021-07-16] MEDS: ZINC SULFATE 220mg CAP or TAB PO SCH (09:18)
[2021-07-16 13:13] VITALS: BP 137/76
[2021-07-16 17:00] VITALS: BP 146/79
[2021-07-16] MEDS: ZOLPIDEM TARTRATE 5 MG TAB PO PRN (21:40)
[2021-07-16 22:00] VITALS: BP 104/66
[2021-07-17] MEDS: SODIUM CHLORIDE 0.9% 1,000 ML IV SCH (03:45)
[2021-07-17 04:30] VITALS: BP 101/57
[2021-07-17] MEDS: InsuLIN REG 1unit/0.01ml Soln (100units/ml) SC SCH (06:26)
[2021-07-17] MEDS: ACCU-CHEK COMFORT CURVE STRIP VI SCH (06:27)
[2021-07-17 08:00] VITALS: BP 134/60
[2021-07-17] MEDS: ASCORBIC ACID 500 MG TAB PO SCH (10:49)
[2021-07-17] MEDS: HEPARIN SODIUM (PORCINE) 5000 UNITS/ML 1ML VIAL SC SCH (10:49)
[2021-07-17] MEDS: ASPirin 81 mg TAB PO SCH (10:49)
[2021-07-17] MEDS: ZINC SULFATE 220mg CAP or TAB PO SCH (10:49)
[2021-07-17] MEDS: MULTIPLE VITAMIN TAB PO SCH (10:50)
[2021-07-17 12:00] VITALS: BP 127/55
== END 2021-07-17 15:53 | disposition home or self-care (01) | DRG 871 ==
LOC: EDBD 15:44 → ER 15:44 → TELE 23:51 → TELE-WESTW 07-12 05:20
PROVIDERS: ADMIT Nurse Practitioner Family; ATTEND Family Medicine
DX: A41.9 Sepsis, unspecified organism (principal); N17.0 Acute kidney failure with tubular necrosis; I21.4 Non-ST elevation (NSTEMI) myocardial infarction; A04.71 Enterocolitis due to Clostridium difficile, recurrent; E87.6 Hypokalemia; E78.5 Hyperlipidemia, unspecified; I10 Essential (primary) hypertension; Z53.29 Procedure and treatment not carried out because of patient's decision for other reasons; Z20.822 Contact with and (suspected) exposure to COVID-19; E11.65 Type 2 diabetes mellitus with hyperglycemia; I48.91 Unspecified atrial fibrillation; E78.00 Pure hypercholesterolemia, unspecified; E86.0 Dehydration; N28.89 Other specified disorders of kidney and ureter; Z80.0 Family history of malignant neoplasm of digestive organs; Z80.3 Family history of malignant neoplasm of breast; Z82.49 Family history of ischemic heart disease and other diseases of the circulatory system; Z90.49 Acquired absence of other specified parts of digestive tract; Z90.710 Acquired absence of both cervix and uterus; Z93.3 Colostomy status
CPT/HCPCS: 36415; 71045; 74176; 80053; 82565; 82962; 83036; 83605; 83690; 84484; 85025; 87040; 87426; 87493; 93005; 96361; 96374; 96375; 97110; 97116; 97163; 97530; G0378; J1815; J2405; J3490

== ENCOUNTER 2021-07-28 01:27 | Inpatient (IN) | payer MEDICARE, BC ==
[~2021-07-28] VITALS: Ht 160 cm; Wt 67.6 kg
[2021-07-28] MEDS ORDERED: FAMOTIDINE (10MG/ML) 2ML VL IV ONE (03:00)
[2021-07-28] MEDS ORDERED: VANCOMYCIN HCL 500MG/5ML ORAL SOL PO ONE ×2 (03:00→03:15)
[2021-07-28] MEDS ORDERED: SODIUM CHLORIDE 0.9% 1,000 ML IV ONE (03:00)
[2021-07-28] MEDS ORDERED: ONDANSETRON HCL 4 MG/2 ML VIAL IV ONE (03:00)
[2021-07-28 03:31] LABS: Basophils # (auto) 0 10 ^3/uL (0-0.2); Basophils % (auto) 0.2 % (0.0-2.0); Eosinophils # (auto) 0 10 ^3/uL (0-0.8); Eosinophils % (auto) 0.3 % (0.0-7.0); Lymphocytes # (auto) 1.3 10 ^3/uL (0.4-5.4); Lymphocytes % (auto) 8.2 % (10.0-50.0); Mean Corpuscular Hemoglobin 28.6 pg (28.0-32.0); Mean Corpuscular Hgb Conc. 31.6 g/dL (32.0-36.0); Mean Corpuscular Volume 90.6 fL (80.0-100.0); Monocytes # (auto) 2.1 10 ^3/uL (0-1.3); Monocytes % (auto) 12.9 % (0.0-12.0); Neutrophils # (auto) 12.8 10 ^3/uL (1.6-8.6); Neutrophils % (auto) 78.4 % (37.0-80.0); Red Blood Cells 4.19 10^6/uL (4.0-5.20); Red Cell Distribution Width 15.9 % (11.8-14.3); White Blood Cell 16.4 10^3/uL (4.4-10.8)
[2021-07-28 03:49] LABS: Albumin 2.9 g/dL (3.4-5.0); BUN/Creatinine Ratio 8.1; Calcium 8.2 mg/dL (8.5-10.1); Potassium 3.2 mmol/L (3.5-5.1)
[2021-07-28 03:52] LABS: Bilirubin, Total 0.7 mg/dL (0.2-1.0); Total Protein 6.2 g/dL (6.4-8.2)
[2021-07-28] MEDS ORDERED: NITROGLYCERIN 0.4 MG SL TAB SL PRN (08:15)
[2021-07-28] MEDS ORDERED: MORPHINE SULFATE INJECTION 2 MG/ML SYRG IV PRN ×2 (08:15)
[2021-07-28] MEDS ORDERED: ACETAMINOPHEN 325 MG TAB PO PRN (08:15)
[2021-07-28] MEDS ORDERED: DEXTROSE (50%) 50ML SYRG IV PRN (09:15)
[2021-07-28] MEDS: SOD CHL 0.45% 1,000 ML IV SCH (09:29)
[2021-07-28] MEDS: POTASSIUM CHL 20MEQ/50ML 50 ML IV SCH ×3 (09:45→11:24)
[2021-07-28] MEDS: FLORASTOR (S. BOULARDII) 250 MG CAP PO SCH (10:09)
[2021-07-28] MEDS: InsuLIN REG 1unit/0.01ml Soln (100units/ml) SC SCH ×3 (11:30→21:30)
[2021-07-28] MEDS: ACCU-CHEK COMFORT CURVE STRIP VI SCH ×3 (11:41→21:30)
[2021-07-28] MEDS: POTASSIUM EFFERVESENT TAB 25 MEQ PO SCH ×2 (11:42→21:28)
[2021-07-28] MEDS ORDERED: VANCOMYCIN HCL 125MG/5ML ORAL SOL PO SCH ×3 (12:00→21:00)
[2021-07-28 13:28] LABS: Urine Bacteria FEW /hpf (None Seen); Urine Blood 1+ /uL (Negative); Urine Mucus FEW (None Seen); Urine Specific Gravity 1.014 (1.001-1.035); Urine WBC 1367 /hpf (0 - 5); Urine WBC Clumps PRESENT /hpf (None Seen)
[2021-07-28] MEDS: metroNIDAZOLE 500 MG TAB PO SCH ×2 (13:56→21:28)
[2021-07-29] MEDS: ONDANSETRON HCL 4 MG/2 ML VIAL IV PRN ×2 (00:28→06:13)
[2021-07-29] MEDS: HYDROcodone-ACET 5/325MG TAB PO PRN (00:28)
[2021-07-29] MEDS: SOD CHL 0.45% 1,000 ML IV SCH ×2 (00:55→17:00)
[2021-07-29] MEDS: ACCU-CHEK COMFORT CURVE STRIP VI SCH ×4 (06:14→21:41)
[2021-07-29] MEDS: InsuLIN REG 1unit/0.01ml Soln (100units/ml) SC SCH ×4 (06:14→21:40)
[2021-07-29] MEDS: metroNIDAZOLE 500 MG TAB PO SCH ×3 (06:15→21:39)
[2021-07-29] MEDS: VANCOMYCIN HCL 125MG/5ML ORAL SOL PO SCH ×4 (07:57→23:58)
[2021-07-29 09:00] VITALS: BP 118/63
[2021-07-29] MEDS: FLORASTOR (S. BOULARDII) 250 MG CAP PO SCH (09:20)
[2021-07-29] MEDS ORDERED: cefTRIAXone 1GM/50ML D5W 50 ML IV ONE (10:15)
[2021-07-29 13:00] VITALS: BP 135/85
[2021-07-29] MEDS ORDERED: ZOLPIDEM TARTRATE 5 MG TAB PO PRN (16:45)
[2021-07-29 17:00] VITALS: BP 105/77
[2021-07-29 22:00] VITALS: BP 119/74
[2021-07-29] MEDS: ZOLPIDEM TARTRATE 5 MG TAB PO PRN (23:57)
[2021-07-30] MEDS: SOD CHL 0.45% 1,000 ML IV SCH ×3 (02:45→22:17)
[2021-07-30] MEDS: ALUM & MAG HYDROX-SIMETH LIQ(MAALOX) 30 ML PO PRN ×3 (03:43→22:18)
[2021-07-30 05:00] VITALS: BP 118/67
[2021-07-30] MEDS: metroNIDAZOLE 500 MG TAB PO SCH ×3 (06:04→22:16)
[2021-07-30] MEDS: InsuLIN REG 1unit/0.01ml Soln (100units/ml) SC SCH ×4 (06:05→22:00)
[2021-07-30] MEDS: ACCU-CHEK COMFORT CURVE STRIP VI SCH ×4 (06:05→22:17)
[2021-07-30] MEDS: VANCOMYCIN HCL 125MG/5ML ORAL SOL PO SCH ×3 (06:36→20:38)
[2021-07-30 06:51] LABS: Potassium 3.1 mmol/L (3.5-5.1)
[2021-07-30 06:54] LABS: Basophils # (auto) 0 10 ^3/uL (0-0.2); Basophils % (auto) 0.5 % (0.0-2.0); Eosinophils # (auto) 0.2 10 ^3/uL (0-0.8); Eosinophils % (auto) 3.2 % (0.0-7.0); Hematocrit 41.1 % (36.0-46.0); Hemoglobin 13.5 g/dL (12.2-16.2); Lymphocytes # (auto) 2.4 10 ^3/uL (0.4-5.4); Lymphocytes % (auto) 31.7 % (10.0-50.0); Mean Corpuscular Hemoglobin 29.5 pg (28.0-32.0); Mean Corpuscular Hgb Conc. 32.8 g/dL (32.0-36.0); Mean Corpuscular Volume 90.1 fL (80.0-100.0); Monocytes # (auto) 0.8 10 ^3/uL (0-1.3); Monocytes % (auto) 9.8 % (0.0-12.0); Neutrophils # (auto) 4.2 10 ^3/uL (1.6-8.6); Neutrophils % (auto) 54.8 % (37.0-80.0); Nucleated Red Blood Cells % 0.1 %; Red Blood Cells 4.56 10^6/uL (4.0-5.20); Red Cell Distribution Width 15.5 % (11.8-14.3); White Blood Cell 7.6 10^3/uL (4.4-10.8)
[2021-07-30 06:56] LABS: Albumin 3.3 g/dL (3.4-5.0); BUN/Creatinine Ratio 9.1; Calcium 9.3 mg/dL (8.5-10.1)
[2021-07-30 06:58] LABS: Bilirubin, Total 0.4 mg/dL (0.2-1.0)
[2021-07-30 09:00] VITALS: BP 127/68
[2021-07-30] MEDS ORDERED: cefTRIAXone 1GM/50ML D5W 50 ML IV SCH (09:00)
[2021-07-30] MEDS: ONDANSETRON HCL 4 MG/2 ML VIAL IV PRN (09:19)
[2021-07-30] MEDS: FLORASTOR (S. BOULARDII) 250 MG CAP PO SCH (09:19)
[2021-07-30] MEDS ORDERED: POTASSIUM CHL 20 Meq TABLET PO ONE (13:00)
[2021-07-30] MEDS: MEROPENEM 1GM IVPB 100 ML IV SCH (13:33)
[2021-07-30 17:00] VITALS: BP 140/53
[2021-07-30 22:00] VITALS: BP 107/62
[2021-07-30] MEDS: HYDROcodone-ACET 5/325MG TAB PO PRN (22:19)
[2021-07-30] MEDS: ZOLPIDEM TARTRATE 5 MG TAB PO PRN (22:19)
[2021-07-31] MEDS: VANCOMYCIN HCL 125MG/5ML ORAL SOL PO SCH ×3 (02:53→14:33)
[2021-07-31] MEDS: MEROPENEM 1GM IVPB 100 ML IV SCH (02:53)
[2021-07-31] MEDS: ONDANSETRON HCL 4 MG/2 ML VIAL IV PRN ×2 (02:54→10:45)
[2021-07-31 05:00] VITALS: BP 107/61
[2021-07-31 06:45] LABS: Basophils # (auto) 0.1 10 ^3/uL (0-0.2); Basophils % (auto) 0.8 % (0.0-2.0); Eosinophils # (auto) 0.2 10 ^3/uL (0-0.8); Eosinophils % (auto) 1.8 % (0.0-7.0); Hematocrit 43.5 % (36.0-46.0); Hemoglobin 14.4 g/dL (12.2-16.2); Lymphocytes # (auto) 2.4 10 ^3/uL (0.4-5.4); Lymphocytes % (auto) 22.7 % (10.0-50.0); Mean Corpuscular Hemoglobin 29.6 pg (28.0-32.0); Mean Corpuscular Hgb Conc. 33.1 g/dL (32.0-36.0); Mean Corpuscular Volume 89.4 fL (80.0-100.0); Monocytes # (auto) 1.1 10 ^3/uL (0-1.3); Monocytes % (auto) 10.7 % (0.0-12.0); Neutrophils # (auto) 6.7 10 ^3/uL (1.6-8.6); Nucleated Red Blood Cells % 0.1 %; Red Blood Cells 4.86 10^6/uL (4.0-5.20); Red Cell Distribution Width 15.4 % (11.8-14.3); White Blood Cell 10.5 10^3/uL (4.4-10.8)
[2021-07-31] MEDS: metroNIDAZOLE 500 MG TAB PO SCH (06:47)
[2021-07-31] MEDS: ACCU-CHEK COMFORT CURVE STRIP VI SCH (06:48)
[2021-07-31] MEDS: InsuLIN REG 1unit/0.01ml Soln (100units/ml) SC SCH (06:48)
[2021-07-31] MEDS: SOD CHL 0.45% 1,000 ML IV SCH (07:12)
[2021-07-31 09:00] VITALS: BP 103/68
[2021-07-31] MEDS: FLORASTOR (S. BOULARDII) 250 MG CAP PO SCH (10:45)
[2021-07-31] MEDS: ALUM & MAG HYDROX-SIMETH LIQ(MAALOX) 30 ML PO PRN (11:01)
[2021-07-31 12:53] LABS: Albumin 3.6 g/dL (3.4-5.0); Calcium 8.9 mg/dL (8.5-10.1); Magnesium 2.6 mg/dL (1.6-2.6)
[2021-07-31 13:00] VITALS: BP 120/67
[2021-07-31] MEDS ORDERED: CLINIMIX PER PHARMACY 0 ML IV SCH (13:00)
[2021-07-31] MEDS ORDERED: DEXTROSE (50%) 50ML SYRG IV SCH (13:30)
[2021-07-31 14:32] LABS: BUN/Creatinine Ratio 8.3; Bilirubin, Total 0.3 mg/dL (0.2-1.0); Total Protein 7.5 g/dL (6.4-8.2)
[2021-07-31 14:55] LABS: Potassium 2.8 mmol/L (3.5-5.1)
[2021-07-31] MEDS ORDERED: POTASSIUM CHL 10MEQ/50ML 100 ML IV ONE (15:04)
[2021-07-31 15:21] VITALS: BP 0/0
[2021-07-31] MEDS ORDERED: PHENYLEPHRINE IV 250 ML IV ONE (15:21)
[2021-07-31] MEDS ORDERED: EPINEPHrine HCL 1 MG/10 ML SYRG IV ONE (15:50)
[2021-07-31] MEDS ORDERED: LIDOCAINE HCL 100 MG/5ML (2%) SYRG INJ IV ONE (15:50)
[2021-07-31] MEDS ORDERED: AMIODARONE HCL (50 MG/ ML) 3 ML VIAL IV ONE (15:50)
[2021-07-31] MEDS ORDERED: CALCIUM CHLOR(10%) 100MG/ML 10ML SYRINGE IV ONE (15:50)
[2021-07-31] MEDS ORDERED: Ensure Enlive Strawberry 8oz Bottle PO SCH (18:00)
[2021-07-31] MEDS ORDERED: AMINO ACID INFUSION IN D10W 1,000 ML IV NR (20:00)
[2021-08-01] MEDS ORDERED: ACCU-CHEK COMFORT CURVE STRIP VI SCH
[2021-08-01] MEDS ORDERED: InsuLIN REG 1unit/0.01ml Soln (100units/ml) SC SCH
== END 2021-07-31 15:51 | DRG 871 ==
LOC: EDBD 01:27 → ER 01:31 → TELE 08:05 → TELE-WESTW 07-29 04:15
PROVIDERS: ADMIT Family Medicine; ATTEND Family Medicine
PROC: 05HC33Z Insertion of Infusion Device into Left Basilic Vein, Percutaneous Approach (ICD-10-PCS; 2021-07-30)
PROC: B54NZZA Ultrasonography of Left Upper Extremity Veins, Guidance (ICD-10-PCS; 2021-07-30)
PROC: 5A12012 Performance of Cardiac Output, Single, Manual (ICD-10-PCS; principal; 2021-07-31)
PROC: 06HM33Z Insertion of Infusion Device into Right Femoral Vein, Percutaneous Approach (ICD-10-PCS; 2021-07-31)
PROC: 0BH17EZ Insertion of Endotracheal Airway into Trachea, Via Natural or Artificial Opening (ICD-10-PCS; 2021-07-31)
DX: A41.9 Sepsis, unspecified organism (principal); N17.0 Acute kidney failure with tubular necrosis; A04.71 Enterocolitis due to Clostridium difficile, recurrent; N39.0 Urinary tract infection, site not specified; E44.0 Moderate protein-calorie malnutrition; E83.51 Hypocalcemia; E86.0 Dehydration; E87.6 Hypokalemia; E11.65 Type 2 diabetes mellitus with hyperglycemia; I46.9 Cardiac arrest, cause unspecified; I10 Essential (primary) hypertension; Z20.822 Contact with and (suspected) exposure to COVID-19; F32.A Depression, unspecified; F41.9 Anxiety disorder, unspecified; B96.4 Proteus (mirabilis) (morganii) as the cause of diseases classified elsewhere; I49.01 Ventricular fibrillation; Z79.899 Other long term (current) drug therapy; Z80.0 Family history of malignant neoplasm of digestive organs; Z68.26 Body mass index [BMI] 26.0-26.9, adult; Z80.3 Family history of malignant neoplasm of breast; Z82.49 Family history of ischemic heart disease and other diseases of the circulatory system; Z85.038 Personal history of other malignant neoplasm of large intestine; Z90.49 Acquired absence of other specified parts of digestive tract; Z90.710 Acquired absence of both cervix and uterus
CPT/HCPCS: 36415; 74018; 80053; 81001; 82962; 83605; 83735; 85025; 87040; 87077; 87086; 87088; 87186; 87426; 87493; 92950; 96361; 96374; 96375; G0378; J0696; J1815; J2185; J2405; J3490